=== PATIENT | female | born 1950 | race African-American/Black ===

== ENCOUNTER 2017-08-31 20:27 | Inpatient (IN) | payer SELFPAY ==
[2017-08-31 22:11] LABS: Troponin I 0.095 ng/mL (< 0.028)
[2017-08-31] MEDS ORDERED: CEFTRIAXONE 2GM/50 ML BAG 2 GM in Premix Bag 1 BAG IVPB SCH (23:00)
[2017-08-31] MEDS ORDERED: Ondansetron HCl/PF 4 MG/2 ML Vial IVP PRN (23:35)
[2017-08-31] MEDS ORDERED: Acetaminophen 325 MG TAB PO PRN (23:35)
[2017-08-31] MEDS ORDERED: Ondansetron ODT 4 MG TAB SL PRN (23:35)
[2017-08-31] MEDS ORDERED: Azithromycin 500 MG in Sodium Chloride 0.9% 250 ML 250 ML IVPB SCH (23:59)
[2017-09-01] MEDS ORDERED: PROVENTIL INHALER 6.7 G (200 INHALATIONS) INH PRN (01:31)
[2017-09-01] MEDS ORDERED: Bisacodyl 10 MG SUPP PR PRN (01:31)
[2017-09-01] MEDS ORDERED: Acetaminophen 650 MG Suppository PR PRN (01:31)
[2017-09-01] MEDS ORDERED: cefTRIAXone\\ROCEPHIN 2 GM in Sodium Chloride 0.9% 100 ML IVPB SCH (01:31)
[2017-09-01] MEDS ORDERED: Ondansetron HCl/PF 4 MG/2 ML Vial IVP PRN (01:31)
[2017-09-01] MEDS ORDERED: Bisacodyl 5 MG TAB PO PRN (01:31)
[2017-09-01] MEDS ORDERED: Ondansetron ODT 4 MG TAB PO PRN (01:31)
[2017-09-01] MEDS ORDERED: CEFTRIAXONE 2GM/50 ML BAG 2 GM in Premix Bag 1 BAG IVPB SCH (02:00)
[2017-09-01] MEDS ORDERED: Vancomycin HCl 1 GM in Premix Bag 1 BAG IVPB SCH (02:00)
[2017-09-01] MEDS ORDERED: Lorazepam 0.5 MG TAB PO SCH (02:45)
[2017-09-01 02:49] LABS: Anion Gap 12 mmol/L (10-20); BUN (Urea Nitrogen) 13 mg/dL (9.8-20.1); Calc. Creatinine Clearance 40 mL/min (70-130); Carbon Dioxide 30 mmol/L (23-31); Chloride 89 mmol/L (98-107); Estimated GFR-MDRD 65; Potassium 3.9 mmol/L (3.5-5.1); Sodium 127 mmol/L (136-145)
[2017-09-01 02:50] LABS: ALT (SGPT) 8 U/L (8-55); AST (SGOT) 8 U/L (5-34); Albumin 2.7 g/dL (3.4-4.8); Alkaline Phosphatase 60 U/L (40-150); Bilirubin, Total 0.6 mg/dL (0.2-1.2); Calcium 8.4 mg/dL (7.8-10.44); Globulin 3.1 g/dL (2.4-3.5); Glucose 194 mg/dL (80-115); Protein, Total 5.8 g/dL (6.0-8.3)
[2017-09-01] MEDS: Potassium Chloride 20 MEQ in Lactated Ringer's 1,000 ML IV SCH (03:07)
[2017-09-01 03:08] LABS: Band 3 % (5-11); Eosinophils 9 % (0-10); Lymphocytes 17 % (21-51); MDiff Complete? YES; Mean Corpuscular HGB CONC 31.7 g/dL (32.0-36.0); Mean Corpuscular Hemoglobin 29.5 pg (27.0-31.0); Mean Corpuscular Volume 92.9 fl (81.0-99.0); Mean Platelet Volume 8.3 fL (7.4-10.4); Monocytes 4 % (0-10); Neutrophil 67 % (42-75); PLT Morphology Comment Appears Adequate; Platelet Count 264 thou/uL (130-400); RBC Distribution Width 13.8 % (11.5-14.5); RBC Morphology Normal; Red Blood Cell (RBC) Count 4.43 mill/uL (4.20-5.40); White Blood Cell (WBC) Count 11.4 thou/uL (4.8-10.8)
--- NOTE | 2017-09-01 03:21 | HP ---
DATE OF ADMISSION: 08/31/2017 CHIEF COMPLAINT: Coughing up blood. HISTORY OF PRESENT ILLNESS: This is a 66-year-old female with a past medical history that is quite extensive and includes a lung mass or pneumonia in September of last year, peripheral vascular disease, COPD, tobacco abuse, history of TB. She presents with 2 to 3-day history of coughing pink bloody sputum and having worsening shortness of breath. She feels like the coughing and the breathing had just gotten worse and worse, and so she decided to come to the ER. In the ER, she was found to be coughing up some pink frothy sputum and subsequently was admitted to our service. She says that she has been having chronic cough for months to years and that this has just been progressing and she has been seeing doctors, but has not been getting any better. She was seen in September and diagnosed with what was felt to be a pneumonia, and transitioned to oral antibiotics and discharged home, and then never followed up as directed. She says she has not had any night sweats or fevers, but she told my resident she had had some weight loss. She tells me she was treated for TB a long time ago when she was in her teens, 18 or 19. PAST MEDICAL HISTORY: Significant for hyperlipidemia, peripheral vascular disease, tobacco abuse, COPD, hypertension. PAST SURGICAL HISTORY: Includes stents in the legs as well as the kidneys. ALLERGIES: She is allergic to PENICILLIN. MEDICATIONS: Ventolin, Symbicort, lisinopril, Coreg, statin, and clonidine. FAMILY HISTORY: Significant for diabetes mellitus. SOCIAL HISTORY: She smokes more than a pack a day, drinks, but no history of drug abuse. PHYSICAL EXAMINATION: VITAL SIGNS: BP 140/96, pulse 78, respiratory rate of 22, O2 sat 93% on 2 liters oxygen. She was satting 100% on 3 liters oxygen when I was in the room. GENERAL: She seems slightly short of breath, but no distress. HEENT: Eyes without icterus or injection. Pinna normal. Nares patent without discharge. Nasal cannula in place. CARDIOVASCULAR: Regular rate and rhythm without murmur. No peripheral edema. She has had poor distal pulses. No renal bruit. LUNGS: She has diffuse expiratory wheezing and crackles especially in the right lung base inside. ABDOMEN: Bowel sounds positive. Nontender to palpation. No palpable organomegaly for me. GENITOURINARY: Deferred. MUSCULOSKELETAL: Without obvious deformity or contracture with the exception of a prominent clubbing of her nails. SKIN: Without lesion or rash. Warm and dry. She does have the aforementioned clubbing. NEUROLOGIC: Cranial nerves II-XII intact, symmetric. Motor is 5/5 in upper and lower extremities. PSYCH: AOx4, mood and affect appropriate for current medical condition. LABORATORY DATA: Include a white count of 10.4, hemoglobin of 14.4, platelets 255. Chemistry includes a sodium of 124, potassium 3.2, chloride 81, bicarbonate of 33, BUN 14, creatinine 0.95. Normal LFTs. Her CT of the chest read as, 1. no large central pulmonary embolus. 2. Extensive multifocal consolidation bilaterally, but there is cavitation, this progressively increased in size and was previously documented in right lower lobe measuring 6.6 cm compared with previous similar location of 4.2 cm on prior exam. This may relate to progressive area of malignancy versus chronic consolidation given the multifocality of findings and cavitation such as atypical infection versus cavitary malignancy should be further discerned clinically. 3. Clear evidence of pulmonary emphysema. 4. Evidence of thoracic adenopathy, which could be related to reactive or neoplastic etiology. 5. Recommend followup with Pulmonary Medicine consultation. ASSESSMENT AND PLAN: 1. Hemoptysis. Her infiltrate which has been worsening in light of her chronic symptoms and history attributes concerning of course for malignancy, TB , and other nonresolving causes of pneumonia. We will place her in isolation room, request AFB sputum x3, and consult Pulmonology in the morning. 2. Chronic obstructive pulmonary disease. We will go ahead and continue home medications and schedule DuoNeb q.4 hours if she feels like she is a bit short of breath. She may require BiPAP with any worsening overnight. We will monitor her closely and obtain blood gas and escalate care if necessary. 3. Hypertension. I think restarting her home medications will be sufficient for now. 4. Hyponatremia, likely secondary to underlying pulmonary process. I will go ahead and trend with a BMP in the morning. 5. Hypokalemia. We will replete and recheck. 6. Alkalosis. Suspect this is chronic respiratory acidosis at this point. 7. Elevated BNP with what looks like a fairly large LV on CT scan. We will go ahead and obtain TTE. 8. Nux-LB-[id number] myocardial infarction with troponins that are stable at 0.093 and 0.095. I will repeat an EKG, which I was unable to find while I was in the ER, and consider consultation in the morning. 9. Tobacco abuse. We will certified drug counselor cessation. 10. Hyperlipidemia. We will continue statin that she is on home. 11. Peripheral vascular disease. We will hold the aspirin in light of her current hemoptysis. 12. Gastrointestinal prophylaxis with diet. DVT prophylaxis with Lovenox. MTDD
--- NOTE | 2017-09-01 06:02 | HP-2 ---
DATE OF ADMISSION: 08/31/2017 CODE STATUS: FULL. PRIMARY CARE PHYSICIAN: Dr. Kirkpatrick. ATTENDING PHYSICIAN: Dr. Meek. RESIDENT: Martín Vora M.D., PGY1 CHIEF COMPLAINT: Pneumonia. HISTORY OF PRESENT ILLNESS: It should be noted that the patient is not a very good historian. This is a 66-year-old -British female that comes in with chief complaint of cough. This cough has been going on now for the last 11 months has been having shortness of breath for over the last year or two. She has been taking over the counter medications. She said she has recently switched [facility] doctors because she was trying to get antibiotics or different medicines for this cough. The cough is recurrent. She is coughing up pink colored sputum. She reports that sometimes she gets bur radha pain in her chest. She says she is on multiple different inhalers that helped with the cough so me but is still present. She denies any fever, chills. Denies any night sweats. Denies any recent weight loss, she has lost from 120 pounds to 105 pounds over the past 5 years. From reviewing past m edical history and past visits, she was recently hospitalized in the ER back in 10/06/2016, was found to have some sort of lung mass and told that she needed to be worked up for cancer and she told him that she did not have time to get this worked up. Since then she has just been tired of dealing with this. She finally came into the ER today because the shortness of breath was too much and cough was getting too much for her. It should be noted after talking with her, she did report having been ibis ated for TB infection back when she was a child. PAST MEDICAL HISTORY: Hyperlipidemia, peripheral vascular disease with claudication, hypertension, t obacco abuse, COPD, and Diabetes mellitus. PAST SURGICAL HISTORY: She has gotten stents put in her leg, stents in her kidneys for poor perfusio n to her kidneys. ALLERGIES: Include PENICILLIN. MEDICATIONS: She is on hydralazine 25 mg half a tablet by mouth twice daily, lovastatin 20 mg 1 tab daily, carvedilol 25 mg by mouth twice daily, Ventolin HFA 1-2 puffs twice a day as needed, Lisinopri l/hydrochlorothiazide 20/12.5 mg oral tablet 2 p.o. daily, Symbicort 162/4.5mg/ACT inhalation aerosol 1-2 puffs as needed. SOCIAL HISTORY: She has been 1 pack per day smoker ever since she was 17, through for 50 plus years. She has recently cut back some but sometimes goes two to three days without smoking. Alcohol use i s occasional. No illicit drug use. REVIEW OF SYSTEMS: All review of systems not listed in the HPI, otherwise negative at this time. PHYSICAL EXAMINATION: VITAL SIGNS: Blood pressure is 145/80, pulse 75, respirations 16, temperature is 98.3, pulse ox 94% on 3 liters. Current weight 47 kilograms. GENERAL: She is alert and oriented x3, well-developed. She is thin, appropriately interactive. EYES: Conjunctivae within normal limit. ENT: Nasal mucosa within normal limits. Oropharynx within normal limit. NECK: Supple, no lymphadenopathy, no thyromegaly, no bruits. CARDIOVASCULAR: Regular rate and rhythm. No murmurs, no gallops. Radial pulses, pedal pulses palpa stuart bilaterally. RESPIRATORY: She has decreased lung sounds, decreased breaths. No retractions, rales on inspiration , has expiratory wheezes, maybe some mild crackles as well. SKIN: Warm and dry. No lesions noted. ABDOMEN: Soft, nontender to palpation. Bowel sounds heard in all 4 quadrants. No masses. Maybe mi ldly distended. EXTREMITIES: No edema, no pitting. MUSCULOSKELETAL: She has definitely decreased muscle mass. Very thin legs, tone decreased. She has palm range of motion of her extremities. NEUROLOGIC: No focal neuro deficit. PSYCHIATRIC: Appropriate. LABORATORY DATA: Hemoglobin is 10.4, hemoglobin is 14.4, hematocrit is 47, MCV is 88.9, platelets ar e 255. Sodium is 124, potassium is 3.2, chloride is 81, bicarbonate is 33, BUN is 14, creatinine 0.9 5, glucose is 86. CK-MB is 0.8. Troponin is 0.093, calcium is 9.1, total protein is 6.5, albumin is 2.9, total bilirubin is 0.6, AST is 10, ALT is 7, and alkaline phosphatase is 62. BNP is 659.6. IMAGING: A chest x-ray done on 08/31/2017 shows: 1. Interval increase in interstitial opacities bilaterally as well as rounded mass-like area at the right lung base similar findings were seen on the prior study and findings could be related to recurr ent pneumonia, although mass cannot be excluded. There are also parenchymal changes in the right mid lung zone, worrisome for pneumonia. 2. Small bilateral pleural effusions are present. 3. Follow up to complete resolution is recommended to exclude neoplastic process. On 08/31/2017 [facility] chest thorax CTA, which showed: I. No large central pulmonary embolus. II. Extensive multifocal consolidation bilaterally with areas of cavitation. There has been progres sive size increase of previously documented right lower lobe consolidation measuring 6.6 cm compared to a similar location of 4.2 cm on prior exam. This may relate to progressive area of malignancy savage sada chronic consolidation given multifocality of finding the cavitation and it is such as atypical in fection versus cavitary malignancy should be further discern clinically. III. Extensive pulmonary emphysema. IV. There is evidence of thoracic adenopathy which could relate to reactive or neoplastic etiology. V. Recommended follow up with Pulmonary Medicine consultation. ASSESSMENT AND PLAN: This is a 66-year-old -British female who comes in with a year history of recurrent cough and shortness of breath. 1. Recurrent pneumonia with evidence of cavitary lesions on CT. We will likely need to consult pulm onology workup to discern through if these are lesions due to chronic infection or due to cancer. We will check strep pneumo antigen, check legionella antigen. We will check procalcitonin and she did report a history of tuberculosis infection when she was a child with cavitary lesions. We will get a n acid fast bacilli gram staining cultures. We will get sputum cultures. We will get blood cultures and we will keep her on oxygen and monitor O2 sats and treat as needed. We will also give her ceftr iaxone and azithromycin for atypical antibiotics currently. We will adjust antibiotic regimen as cul tures come back. 2. Indeterminate troponin. Troponin was elevated 0.093 could be due to decreased oxygen into the kee ngs and we will continue to trend troponins. She did not complain of any chest pain, nothing on EKG. We will put her on tele monitoring while she is here. 3. Hyponatremia. We will get serum and urine osmolality. We will get urine sodium and was started on lactated Ringer's with KCl. She also had some hypokalemia at a rate of 50 and continue to monitor with daily BMPs. Our concern is some kind of sodium loss maybe due to syndrome of inappropriate ant idiuretic hormone secretion likely due to possible cancer in her lungs. 4. Chronic obstructive pulmonary disease. We will continue her home meds. We will give her DuoNebs as needed. We will keep O2 sats above 90. 5. Hypertension. We will continue her home meds at this time. Adjust medications as needed. 6. Hypokalemia. We will replace with the lactated Ringer's. We will check BMP in the morning and a djust as needed. 7. Elevated BNP. BNP was 659.6, heart looks a little bit enlarged on the CT. So we will get a hear t echo at this time and keep fluids at low rate at this time for possible fluid overload. 8. Diabetes mellitus. She is not taking any medications at this time. We will monitor her sugars o n the BMP. 9. Deep venous thrombosis prophylaxis. We will do Lovenox for prophylaxis.
--- NOTE | 2017-09-01 06:26 | PDOC.FM ---
- Subjective Subjective: Patient is a pleasant 66 yo female. She is unaware of any chronic lung disease. She does note that she had TB as a child more specifically "I was born with it and I'm allergic to the shot." She notes that her cough is what brought her to the hospital this time around. She states she was never told that she may have lung cancer. She said that she had smoked all of her life, but decided to quit about a year ago. She denies any chest pain, n/v/d, fever, or chills. She has no other complaints at this time. - Objective Vital Signs & Weight: Vital Signs (12 hours) Temp Pulse Resp BP Pulse Ox 09/01/17 03:35 98 F 73 19 121/59 L 93 L 08/31/17 23:45 97.9 F 77 20 138/64 97 08/31/17 23:15 97.9 F 77 22 H 138/64 97 Weight Weight 47.491 kg I&O: 08/30/17 08/31/17 09/01/17 06:59 06:59 06:59 Intake Total 633.7 Output Total 200 Balance 433.7 Result Diagrams: 09/01/17 01:58 09/01/17 01:58 <Paul Carrasco - Last Filed: 09/01/17 08:19> - Objective Vital Signs & Weight: Vital Signs (12 hours) Temp Pulse Resp BP BP Pulse Ox 09/01/17 08:00 98.4 F 86 18 97 09/01/17 07:50 98.4 F 86 18 194/93 H 97 09/01/17 07:24 70 16 09/01/17 03:35 98 F 73 19 121/59 L 93 L 08/31/17 23:45 97.9 F 77 20 138/64 97 08/31/17 23:15 97.9 F 77 22 H 138/64 97 Weight Admit Weight 46.901 kg Weight 47.491 kg I&O: 08/31/17 09/01/17 09/02/17 06:59 06:59 06:59 Intake Total 633.7 Output Total 200 Balance 433.7 Result Diagrams: 09/01/17 01:58 09/01/17 01:58 <Afsaneh Alvarenga - Last Filed: 09/01/17 11:10> Phys Exam - Physical Examination Constitutional: NAD HEENT: moist MMs Neck: no nodes Expiratory wheezing present, Inspiratory rales, Crackles throughout Cardiovascular: RRR, no significant murmur Gastrointestinal: soft, non-tender, no distention, positive bowel sounds Musculoskeletal: no edema Neurological: non-focal, normal sensation, moves all 4 limbs Lymphatic: no nodes Psychiatric: normal affect Skin: no rash <Paul Carrasco - Last Filed: 09/01/17 08:19> Dx/Plan (1) PNA (pneumonia) Code(s): J18.9 - PNEUMONIA, UNSPECIFIED ORGANISM Status: Acute (2) COPD (chronic obstructive pulmonary disease) Status: Acute (3) Hyponatremia Code(s): E87.1 - HYPO-OSMOLALITY AND HYPONATREMIA Status: Acute (4) Elevated brain natriuretic peptide (BNP) level Code(s): R79.89 - OTHER SPECIFIED ABNORMAL FINDINGS OF BLOOD CHEMISTRY Status : Acute (5) DM2 (diabetes mellitus, type 2) Status: Chronic QualifierTitle: Diabetes mellitus complication status: with hyperglycemia Diabetes mellitus lobsterman insulin use: unspecified halfway insulin use status Qualified Code(s): E11.65 - Type 2 diabetes mellitus with hyperglycemia (6) HTN (hypertension) Code(s): I10 - ESSENTIAL (PRIMARY) HYPERTENSION Status: Chronic QualifierTitle: Hypertension type: essential hypertension Qualified Code( s): I10 - Essential (primary) hypertension (7) HLD (hyperlipidemia) Code(s): E78.5 - HYPERLIPIDEMIA, UNSPECIFIED Status: Acute (8) Peripheral vascular disease Code(s): I73.9 - PERIPHERAL VASCULAR DISEASE, UNSPECIFIED Status: Acute - Plan Plan: 1. Recurrent Pneumonia with Cavitary lesions - Will get Pulmonology consultation, Appreciate Dr. French's recs - Per Patient past hx of TB, put in isolation protocol - Continue antibiotics - Procalcitonin not positive - Cultures pending - Legionella and Strep antigens pending 2. COPD - Continue home meds - Duonebs - Supplemental Oxygen as needed 3. Hyponatremia - Could be due to pulmonary process - Will monitor with BMP - Not currently symptomatic 4. Elevated BNP - ECHO pending 5. DM2 - Not currently medicated - Will check HgbA1C - Will consider accuchecks and SSI 6. HTN - Lisinopril/HCTZ - Monitor BP 7. HLD - Continue statin 8. PVD - s/p stent placement in legs and renal arteries Disposition: Stable, Will await pulmonary recommendations and further lab studies. <Paul Carrasco - Last Filed: 09/01/17 08:19> Attending Addendum - Attending Addendum I personally evaluated the patient and discussed the management with Dr. Carrasco I agree with the History, Examination, Assessment and Plan documented above with any addition or exceptions noted below- Patietn c/o SOB; states that it feels like she can't catch her breath. Does states that cough is improved. Afebrile VSS. A/P: 1) Multifocal pneumonia- continue antibiotics, O2 and nebs, 2 ) COPD- consider addition of steroids; continue nebs/O2. 3) Abnormal CT scan with cavitary lesion- infectious vs neoplasm- CT scan from 2013 with right lower lobe pleural based lesion now increased in size; await input from pulmonary. 4) DM- will check accuchecks and treat accordingly. 5) HTN- continue home meds and adjust as needed. <Afsaneh Alvarenga - Last Filed: 09/01/17 11:10>
[2017-09-01] MEDS: Mometasone/Formoterol 120 PUFF INHALER INH SCH ×2 (07:24→19:50)
[2017-09-01] MEDS ORDERED: Non-Formulary Item 1 EACH (Budesonide-Formoterol [Symbicort 160-4.5] 1 PUFF) INH SCH (09:00)
[2017-09-01] MEDS: hydrALAZINE 25 MG TAB PO SCH ×2 (09:27→21:17)
[2017-09-01] MEDS: Lisinopril/Hydrochlorothiazide 20 mg/12.5 mg Tablet PO SCH (09:27)
[2017-09-01] MEDS: Enoxaparin Sodium 30 MG/0.3 ML SYRINGE SC SCH (09:27)
[2017-09-01] MEDS: Carvedilol 25 MG TAB PO SCH ×2 (09:27→17:17)
[2017-09-01] MEDS ORDERED: Dextrose 5% in Water 1,000 ML IV PRN (11:19)
[2017-09-01] MEDS ORDERED: Dextrose 50% Abboject 50 ML SYRINGE SLOW IVP PRN (11:19)
[2017-09-01 11:46] LABS: Hemoglobin A1c 5.5 % (4.0-6.0)
--- NOTE | 2017-09-01 14:31 | CON ---
DATE OF CONSULTATION: 09/01/2017 CONSULTING PHYSICIAN: [facility]. REASON FOR CONSULTATION: Lung masses. HISTORY OF PRESENT ILLNESS: This is a 66-year-old female who is a poor historian. She is able to gi ve me some history. I have also reconstructed history based on what is written in the chart and from old documentation. She did see Dr. Hebert in the hospital in September. She came in yesterday dexter e she had difficulty with her breathing. She has lost some weight. She told me she is having a dry cough, but later she was coughing up some pink colored sputum. She has an enlarging fairly significa nt right-sided lung mass that was about 4.5 cm in September, it is now about 6 cm. She also has scatt ered bilateral cavitary changes. She tells me she had tuberculosis when she was about 17 years old. She was treated over [facility]. [facility], but does no t know for what duration she took medication. PAST MEDICAL HISTORY: 1. Presumed TB as a teenager. 2. Hyperlipidemia. 3. Chronic obstructive pulmonary disease. 4. Tobacco abuse. 5. Diabetes mellitus type 2. 6. Peripheral vascular disease. PAST SURGICAL HISTORY: She has had iliac stents placed. She has also had renal artery stents placed . ALLERGIES: PENICILLIN. MEDICATIONS PRIOR TO ADMISSION: Hydralazine, lovastatin, carvedilol, Ventolin, lisinopril/hydrochlor othiazide, Symbicort. SOCIAL HISTORY: One pack of cigarettes per day since age 17 and has not quit but has tried to cut ba ck some, occasionally drinks alcohol. Does not use any illicit drugs. REVIEW OF SYSTEMS: Remarkable for weight loss, cough, congestion. A 12-point review of systems other conn negative. PHYSICAL EXAMINATION: VITAL SIGNS: Temperature 98.4, pulse 80, respirations 18, O2 sat 96% on 3 liters, blood pressure 146 /69. GENERAL: She is cachectic-appearing female. She is dyspneic when speaking. HEENT: Sclerae are anicteric. Pupils reactive. Oropharynx dry. NECK: No JVD. LUNGS: Coarse breath sounds bilaterally with bilateral expiratory wheezing. CARDIOVASCULAR: S1, S2, slightly tachycardic. No murmur. ABDOMEN: Soft and nontender. No hepatosplenomegaly. EXTREMITIES: Severe muscle wasting without cyanosis or edema. SKIN: Shows no rashes, bruising or jaundice. She is able to move all 4 extremities without limitati on. LABORATORY DATA: White blood cell count 11.4, hematocrit 41, platelet count 264. Sodium 127, potass ium 3.9, chloride 89, CO2 30, BUN 13, creatinine 1.0, glucose 194. I reviewed her CT scan in detail. She has bilateral cavitary slight interstitial changes. She has a large right lower lobe lung mass , which is lateral. She also has a cavitary lesion in the bottom of the left lung. She has scattere d mediastinal lymphadenopathy. ASSESSMENT: 1. Chronic obstructive pulmonary disease exacerbation. 2. Chronic respiratory failure. 3. Tobacco abuse. 4. History of tuberculosis. 5. Enlarging right lung mass and cavitary left lung mass. RECOMMENDATIONS: 1. I would first treat her COPD exacerbation with antibiotics, breathing treatments, and steroids. 2. Concurrently get sputum, although I doubt, we are dealing with active TB. 3. Eventually, she will need a CT guided biopsy of the right-sided lung mass. I will discuss this w ith Dr. Hebert, who had seen her before.
[2017-09-01] MEDS: HumaLOG 300 UNITS/3 ML VIAL SC PRN (17:16)
[2017-09-01] MEDS: Lovastatin 20 MG TAB PO SCH (17:17)
[2017-09-01 18:05] LABS: Sodium, Urine 96 mmol/L (Not Available)
[2017-09-01] MEDS: Azithromycin 500 MG in Sodium Chloride 0.9% 250 ML 250 ML IVPB SCH (18:08)
[2017-09-01] MEDS: Guaifenesin DM 100-10/5 ML UDCUP PO PRN ×2 (18:09→22:30)
[2017-09-01 18:11] LABS: Osmolality, Urine 384 mOsm/kg (300-900)
[2017-09-01 18:30] LABS: Legionella Urinary Ag Negative (Negative); Strep pneumo Urine Ag NEGATIVE (NEGATIVE)
[2017-09-01] MEDS: Melatonin 3 MG TAB PO PRN (22:22)
[2017-09-02] MEDS: CEFTRIAXONE 2GM/50 ML BAG 2 GM in Premix Bag 1 BAG IVPB SCH (00:46)
[2017-09-02] MEDS: Potassium Chloride 20 MEQ in Lactated Ringer's 1,000 ML IV SCH (01:05)
[2017-09-02] MEDS ORDERED: hydrALAZINE 20 MG/ML VIAL SLOW IVP PRN (04:40)
[2017-09-02 05:33] LABS: Band 18 % (5-11); Hemoglobin 12.4 g/dL (12.0-16.0); Lymphocytes 7 % (21-51); MDiff Complete? YES; Mean Corpuscular HGB CONC 30.8 g/dL (32.0-36.0); Mean Corpuscular Hemoglobin 28.9 pg (27.0-31.0); Mean Platelet Volume 8.1 fL (7.4-10.4); Metamyelocyte 1 % (0-0); Neutrophil 74 % (42-75); PLT Morphology Comment Appears Adequate; Platelet Count 262 thou/uL (130-400); RBC Distribution Width 13.9 % (11.5-14.5); Red Blood Cell (RBC) Count 4.29 mill/uL (4.20-5.40); White Blood Cell (WBC) Count 16.7 thou/uL (4.8-10.8)
[2017-09-02 05:36] LABS: Anion Gap 12 mmol/L (10-20); BUN (Urea Nitrogen) 12 mg/dL (9.8-20.1); Calc. Creatinine Clearance 53 mL/min (70-130); Calcium 8.6 mg/dL (7.8-10.44); Carbon Dioxide 29 mmol/L (23-31); Chloride 88 mmol/L (98-107); Estimated GFR-MDRD 86; Glucose 131 mg/dL (80-115); Potassium 4.2 mmol/L (3.5-5.1); Sodium 125 mmol/L (136-145)
--- NOTE | 2017-09-02 06:08 | PDOC.FM ---
- Subjective Subjective: Patient states she has not gotten good rest. She states every time she is able to get to sleep someone comes in to wake her up. She states that she still "can' t get a breath deep enough to bring up anything." She states the nebulizer treatments and oxygen is helping. She also notes that she has not had any n/v/ d. She denies fever or chills. She does admit to a cough and productive sputum. She also notes some blood in her sputum this am. She denies chest pain or sob at this time as well. No other complaints offered. - Objective Vital Signs & Weight: Vital Signs (12 hours) Temp Pulse Resp BP BP Pulse Ox 09/02/17 04:52 84 191/80 H 09/02/17 00:22 87 18 93 L 09/01/17 21:17 89 136/68 09/01/17 20:00 98.7 F 80 20 136/68 93 L 09/01/17 19:50 89 18 94 L 09/01/17 19:20 98.7 F 80 20 93 L Weight Admit Weight 46.901 kg Weight 47.491 kg I&O: 08/31/17 09/01/17 09/02/17 06:59 06:59 06:59 Intake Total 633.7 1793 Output Total 200 200 Balance 433.7 1593 Result Diagrams: 09/02/17 04:07 09/02/17 04:07 <Paul Carrasco - Last Filed: 09/02/17 08:34> - Objective Vital Signs & Weight: Vital Signs (12 hours) Temp Pulse Resp BP BP Pulse Ox 09/02/17 08:35 98 F 89 18 96 09/02/17 08:33 98 F 89 18 187/88 H 97 09/02/17 08:28 94 16 09/02/17 08:20 94 16 09/02/17 06:05 141/66 H 09/02/17 04:52 84 191/80 H 09/02/17 00:22 87 18 93 L Weight Admit Weight 46.901 kg Weight 47.491 kg I&O: 09/01/17 09/02/17 09/03/17 06:59 06:59 06:59 Intake Total 633.7 1793 Output Total 200 200 Balance 433.7 1593 Result Diagrams: 09/02/17 04:07 09/02/17 04:07 <TenishaAfsaneh colon - Last Filed: 09/02/17 11:10> Phys Exam - Physical Examination Constitutional: NAD HEENT: moist MMs Neck: no nodes, supple Respiratory: wheezing present rales present Cardiovascular: RRR, no significant murmur Gastrointestinal: soft, non-tender, no distention, positive bowel sounds Musculoskeletal: no edema Neurological: non-focal, normal sensation, moves all 4 limbs Lymphatic: no nodes Psychiatric: normal affect, A&O x 3 Skin: no rash <Paul Carrasco - Last Filed: 09/02/17 08:34> Dx/Plan (1) PNA (pneumonia) Code(s): J18.9 - PNEUMONIA, UNSPECIFIED ORGANISM Status: Acute (2) COPD (chronic obstructive pulmonary disease) Status: Acute (3) Hyponatremia Code(s): E87.1 - HYPO-OSMOLALITY AND HYPONATREMIA Status: Acute (4) Elevated brain natriuretic peptide (BNP) level Code(s): R79.89 - OTHER SPECIFIED ABNORMAL FINDINGS OF BLOOD CHEMISTRY Status : Acute (5) DM2 (diabetes mellitus, type 2) Status: Chronic QualifierTitle: Diabetes mellitus complication status: with hyperglycemia Diabetes mellitus residential insulin use: unspecified terminal worker insulin use status Qualified Code(s): E11.65 - Type 2 diabetes mellitus with hyperglycemia (6) HTN (hypertension) Code(s): I10 - ESSENTIAL (PRIMARY) HYPERTENSION Status: Chronic QualifierTitle: Hypertension type: essential hypertension Qualified Code( s): I10 - Essential (primary) hypertension (7) HLD (hyperlipidemia) Code(s): E78.5 - HYPERLIPIDEMIA, UNSPECIFIED Status: Acute (8) Peripheral vascular disease Code(s): I73.9 - PERIPHERAL VASCULAR DISEASE, UNSPECIFIED Status: Acute (9) Lung mass Code(s): R91.8 - OTHER NONSPECIFIC ABNORMAL FINDING OF LUNG FIELD Status: Acute (10) Cavitating mass of lung Code(s): J98.4 - OTHER DISORDERS OF LUNG Status: Acute (11) History of tuberculosis Code(s): Z86.11 - PERSONAL HISTORY OF TUBERCULOSIS Status: Acute - Plan Plan: 1. Recurrent Pneumonia with Cavitary lesions - Will get Pulmonology consultation, Appreciate Dr. French's recs - Per Patient past hx of TB, put in isolation protocol - Continue antibiotics - Procalcitonin not positive - Cultures pending - Legionella and Strep antigens pending 2. COPD - Continue home meds - Duonebs - Supplemental Oxygen as needed - Will add steroids 3. Lung mass - Pulmonary will coordinate for CT guided biopsy 4. Hx of TB -Pulmonology doesn't believe active TB -Will continue isolation precautions -Awaiting sputum culture results 5. Elevated BNP - ECHO pending 6. DM2 - Not currently medicated - HgbA1C 5.5 - Accuchecks and SSI 7. HTN - Lisinopril/HCTZ - Monitor BP - Hydralazine as needed 8. HLD - Continue statin 9. PVD - s/p stent placement in legs and renal arteries 10. Hyponatremia - Could be due to pulmonary process - Will monitor with BMP - Not currently symptomatic Disposition: Stable, Will await pulmonary recommendations and further lab studies. <Paul Carrasco - Last Filed: 09/02/17 08:34> Attending Addendum - Attending Addendum I personally evaluated the patient and discussed the management with Dr. Carrasco I agree with the History, Examination, Assessment and Plan documented above with any addition or exceptions noted below- Patient tired; has not gotten rest ; does state breathing is better. Afebrile VSS A/P: 1) Pneumonia- continue current abx; appreciate pulmonary assistance; continue steroids. 2) Cavitary lung lesions- AFB smear negative; await further recommendations from pulmonary. 3) Hyponatremia- continue to monitor; possibly secondary to lung proscess vs. diurectics. 4) Hyperglycemia- normal HgbA1c; continue to monitor and start sliding scale insulin. <Afsaneh Alvarenga - Last Filed: 09/02/17 11:10>
[2017-09-02] MEDS ORDERED: predniSONE 20 MG TAB PO SCH (08:00)
[2017-09-02] MEDS: Mometasone/Formoterol 120 PUFF INHALER INH SCH ×2 (08:28→18:42)
[2017-09-02] MEDS: Carvedilol 25 MG TAB PO SCH ×2 (08:37→16:00)
[2017-09-02] MEDS: hydrALAZINE 25 MG TAB PO SCH ×2 (08:37→21:09)
[2017-09-02] MEDS: Lisinopril/Hydrochlorothiazide 20 mg/12.5 mg Tablet PO SCH (08:37)
[2017-09-02] MEDS: Enoxaparin Sodium 30 MG/0.3 ML SYRINGE SC SCH (08:37)
[2017-09-02] MEDS: HumaLOG 300 UNITS/3 ML VIAL SC PRN (12:13)
--- NOTE | 2017-09-02 13:14 | PRG ---
DATE OF SERVICE: 09/02/2017 SUBJECTIVE: Ms. Wilson has no new complaints today. PHYSICAL EXAMINATION: VITAL SIGNS: She is afebrile, heart rate 83, respiratory rate is 18, oximetry is 96 on 3 liters, blo od pressure was 187/88, earlier 172/84. LUNGS: Lungs are remarkable for mild rhonchi on the right. HEART: Regular rhythm. ABDOMEN: Soft. LABORATORY DATA: White count 16.7, hemoglobin 12.4, platelets 262. She has 18% band on a peripheral smear. Sodium 125, potassium 4.2, chloride 88, bicarbonate 29, BUN 12, creatinine 0.8, glucose 131. Microbiology; acid fast smears are negative. IMPRESSION: 1. Right upper lobe pneumonia, likely bacterial. 2. 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 3. Right lung mass abutting the pleura. This a large mass that has increased in size since last yea r. I suspect this is malignant. I doubt this is an infectious process since it is very dense with v fabiano few air bronchograms. This could easily be accessed by CT guided biopsy. This should be set up, but not done until first part of next week in my opinion. I suspect this is at least a stage III ma lignancy given that there is adenopathy also. 4. Deconditioning. PLAN: Continue antimicrobial therapy. Her TB isolation can be discontinued. She has a negative AFB smear and it is unlikely this is a malignant since she has not been compliant with followup and admi ts she realized that she should have been to see me sooner. I would recommend that we workup all of her problems while she is here.
[2017-09-02] MEDS: Lovastatin 20 MG TAB PO SCH (17:45)
[2017-09-02] MEDS: Azithromycin 500 MG in Sodium Chloride 0.9% 250 ML 250 ML IVPB SCH (17:45)
[2017-09-02] MEDS: Melatonin 3 MG TAB PO PRN (21:46)
[2017-09-03] MEDS: CEFTRIAXONE 2GM/50 ML BAG 2 GM in Premix Bag 1 BAG IVPB SCH (00:30)
--- NOTE | 2017-09-03 06:14 | PDOC.FM ---
- Subjective Subjective: Patient still complains "I can't take a deep enough breath to get anything out. " She states that her breathing is basically unchanged. She states she only gets out of bed to use the commode. She also states that she doesn't believe the steroids and nebs are helping. She states she feels weak and that she just wants her breathing to be back to normal so that she can go home. She denies chest pain, n/v/d, lightheadedness, or dizziness. She denies tremors or memory trouble. No other complaints offered. - Objective Vital Signs & Weight: Vital Signs (12 hours) Temp Pulse Resp BP Pulse Ox 09/03/17 02:02 87 16 94 L 09/02/17 23:18 90 16 95 09/02/17 21:09 84 09/02/17 19:15 98.3 F 84 18 159/74 H 98 09/02/17 18:42 92 18 94 L 09/02/17 18:40 89 16 94 L Weight Admit Weight 46.901 kg Weight 47.491 kg I&O: 09/01/17 09/02/17 09/03/17 06:59 06:59 06:59 Intake Total 633.7 1793 Output Total 200 200 750 Balance 433.7 1593 -750 Result Diagrams: 09/03/17 06:20 09/03/17 06:20 <Paul Cararsco - Last Filed: 09/03/17 08:35> - Objective Vital Signs & Weight: Vital Signs (12 hours) Temp Pulse Resp BP BP Pulse Ox 09/03/17 09:12 98.3 F 89 20 94 L 09/03/17 09:11 193/95 H 09/03/17 08:56 89 20 94 L 09/03/17 08:37 94 L 09/03/17 08:36 89 20 94 L 09/03/17 07:35 98.3 F 91 18 200/95 H 93 L 09/03/17 04:00 98.5 F 102 H 18 176/71 H 92 L 09/03/17 02:02 87 16 94 L Weight Admit Weight 46.901 kg Weight 47.491 kg I&O: 09/02/17 09/03/17 09/04/17 06:59 06:59 06:59 Intake Total 1793 480 Output Total 200 1150 Balance 1593 -670 Result Diagrams: 09/03/17 06:20 09/03/17 06:20 <Afsaneh Alvarenga - Last Filed: 09/03/17 11:46> Phys Exam - Physical Examination HEENT: moist MMs Neck: no nodes Respiratory: wheezing present improved from yesterday Cardiovascular: RRR Gastrointestinal: soft, non-tender, no distention, positive bowel sounds Musculoskeletal: no edema Neurological: non-focal, normal sensation, moves all 4 limbs Lymphatic: no nodes Psychiatric: normal affect, A&O x 3 Skin: no rash <Paul Carrasco - Last Filed: 09/03/17 08:35> Dx/Plan (1) PNA (pneumonia) Code(s): J18.9 - PNEUMONIA, UNSPECIFIED ORGANISM Status: Acute (2) COPD (chronic obstructive pulmonary disease) Status: Acute (3) Hyponatremia Code(s): E87.1 - HYPO-OSMOLALITY AND HYPONATREMIA Status: Acute (4) Elevated brain natriuretic peptide (BNP) level Code(s): R79.89 - OTHER SPECIFIED ABNORMAL FINDINGS OF BLOOD CHEMISTRY Status : Acute (5) DM2 (diabetes mellitus, type 2) Status: Chronic QualifierTitle: Diabetes mellitus complication status: with hyperglycemia Diabetes mellitus ferry terminal agent insulin use: unspecified ferry terminal agent insulin use status Qualified Code(s): E11.65 - Type 2 diabetes mellitus with hyperglycemia (6) HTN (hypertension) Code(s): I10 - ESSENTIAL (PRIMARY) HYPERTENSION Status: Chronic QualifierTitle: Hypertension type: essential hypertension Qualified Code( s): I10 - Essential (primary) hypertension (7) HLD (hyperlipidemia) Code(s): E78.5 - HYPERLIPIDEMIA, UNSPECIFIED Status: Acute (8) Peripheral vascular disease Code(s): I73.9 - PERIPHERAL VASCULAR DISEASE, UNSPECIFIED Status: Acute (9) Lung mass Code(s): R91.8 - OTHER NONSPECIFIC ABNORMAL FINDING OF LUNG FIELD Status: Acute (10) Cavitating mass of lung Code(s): J98.4 - OTHER DISORDERS OF LUNG Status: Acute (11) History of tuberculosis Code(s): Z86.11 - PERSONAL HISTORY OF TUBERCULOSIS Status: Acute - Plan Plan: Plan: 1. Recurrent Pneumonia with Cavitary lesions - Will get Pulmonology consultation, Appreciate Dr. French's and Dr. Hebert's recs - Per Patient past hx of TB, per Pulmonary isolation can be discontinued. - Continue antibiotics - Procalcitonin not positive - Cultures pending - Legionella and Strep antigens neagative 2. COPD - Continue home meds - Duonebs - Supplemental Oxygen as needed - Will add steroids 3. Lung mass - Pulmonary will coordinate for CT guided biopsy for next week 4. Hx of TB -Pulmonology doesn't believe active TB -Discontinue isolation precautions -AFB negative 5. Elevated BNP - ECHO showed EF 60-65% - Diastolic dysfunction, Mild Mitral regurgitation, and severe tricuspid regurgitation - Patient currently asymptomatic will monitor 6. DM2 - Not currently medicated - HgbA1C 5.5 - Accuchecks and SSI 7. HTN - Lisinopril/HCTZ - Monitor BP - Hydralazine as needed 8. HLD - Continue statin 9. PVD - s/p stent placement in legs and renal arteries 10. 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 <Paul Carrasco - Last Filed: 09/03/17 08:35> Attending Addendum - Attending Addendum I personally evaluated the patient and discussed the management with Dr. Carrasco I agree with the History, Examination, Assessment and Plan documented above with any addition or exceptions noted below- Patient reporting that she still feels like she can't take a deep breath. Afebrile VSS. A/P: 1) CAP- continue IV abx; changed to po steroids; continue nebs. Appreciate pulmonary input. 2) COPD - continue current meds. 3) Lung mass- plan for CT guided biopsy on Thursday. 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 <Afsaneh Alvarenga - Last Filed: 09/03/17 11:46>
[2017-09-03 06:33] LABS: #Basophils 0.1 thou/uL (0.0-0.2); #Lymphocytes 1.4 thou/uL (1.20-3.40); #Monocytes 0.3 thou/uL (0.11-0.59); #Neutrophils 18.1 thou/uL (1.40-6.50); %Basophils 0.3 % (0.0-1.0); %Eosinophils 0.1 % (0.0-10.0); %Lymphocytes 7.1 % (21.0-51.0); %Monocytes 1.7 % (0.0-10.0); %Neutrophils 90.8 % (42.0-75.0); Hemoglobin 13.4 g/dL (12.0-16.0); Mean Corpuscular HGB CONC 30.2 g/dL (32.0-36.0); Mean Corpuscular Hemoglobin 28.4 pg (27.0-31.0); Mean Corpuscular Volume 94.1 fl (81.0-99.0); Platelet Count 288 thou/uL (130-400); RBC Distribution Width 13.8 % (11.5-14.5); White Blood Cell (WBC) Count 19.9 thou/uL (4.8-10.8)
[2017-09-03 06:51] LABS: Anion Gap 12 mmol/L (10-20); BUN (Urea Nitrogen) 12 mg/dL (9.8-20.1); Calc. Creatinine Clearance 51 mL/min (70-130); Calcium 9.5 mg/dL (7.8-10.44); Carbon Dioxide 29 mmol/L (23-31); Chloride 86 mmol/L (98-107); Estimated GFR-MDRD 84; Glucose 122 mg/dL (80-115); Potassium 4.4 mmol/L (3.5-5.1); Sodium 123 mmol/L (136-145)
[2017-09-03] MEDS: Mometasone/Formoterol 120 PUFF INHALER INH SCH ×2 (08:56→18:55)
[2017-09-03] MEDS ORDERED: Amlodipine 5 MG TAB PO SCH (09:00)
[2017-09-03] MEDS: hydrALAZINE 25 MG TAB PO SCH ×3 (09:14→20:48)
[2017-09-03] MEDS: Lisinopril/Hydrochlorothiazide 20 mg/12.5 mg Tablet PO SCH (09:14)
[2017-09-03] MEDS: Carvedilol 25 MG TAB PO SCH ×2 (09:14→18:09)
[2017-09-03] MEDS: Enoxaparin Sodium 30 MG/0.3 ML SYRINGE SC SCH (09:17)
--- NOTE | 2017-09-03 10:28 | PRG ---
DATE OF SERVICE: 09/03/2017 SUBJECTIVE: Steve remains stable from vital signs standpoint. OBJECTIVE: VITAL SIGNS: She is afebrile, heart rate in the 80s, respiratory rate 20, oximetry is 94 on 2-08/18 li ters. She is still significantly hypertensive. Last blood pressure 193/95, but earlier today she wa s 200/95. LUNGS: Unchanged. HEART: Regular rhythm. ABDOMEN: Soft. LABORATORY DATA: White count 19.9, hemoglobin 13.4, platelets 288. Sodium 123, potassium 4.4, chloride 86, bicarbonate 29, BUN 12, creatinine 0.83. IMPRESSION: 1. Pneumonia. 2. 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 3. Large lung mass. This will need to be biopsied next week. We would recommend fluid restriction and antimicrobial therapy, in my opinion, this is appropriate. Gradual adjustment of blood pressure medicines is appropriate. I will take her off IV steroids and s witch her to p.o. prednisone.
[2017-09-03] MEDS: HumaLOG 300 UNITS/3 ML VIAL SC PRN (11:52)
[2017-09-03] MEDS: Acetaminophen 325 MG TAB PO PRN ×2 (11:59→20:49)
[2017-09-03 16:21] LABS: Mean Corpuscular HGB CONC 30.5 g/dL (32.0-36.0); Mean Corpuscular Hemoglobin 28.4 pg (27.0-31.0); Mean Corpuscular Volume 93.2 fl (81.0-99.0); Platelet Count 299 thou/uL (130-400); RBC Distribution Width 13.9 % (11.5-14.5); Red Blood Cell (RBC) Count 4.93 mill/uL (4.20-5.40); White Blood Cell (WBC) Count 19.5 thou/uL (4.8-10.8)
[2017-09-03 16:41] LABS: Band 5 % (5-11); Hypochromia SLIGHT = 6-15 cells (100X) (0-5/hpf); Lymphocytes 5 % (21-51); MDiff Complete? YES; Monocytes 2 % (0-10); Neutrophil 88 % (42-75); PLT Morphology Comment Appears Adequate
[2017-09-03] MEDS: Azithromycin 500 MG in Sodium Chloride 0.9% 250 ML 250 ML IVPB SCH (18:08)
[2017-09-03] MEDS: Lovastatin 20 MG TAB PO SCH (18:09)
[2017-09-03] MEDS: Melatonin 3 MG TAB PO PRN (20:49)
[2017-09-04] MEDS: CEFTRIAXONE 2GM/50 ML BAG 2 GM in Premix Bag 1 BAG IVPB SCH ×2 (00:04→22:50)
[2017-09-04 05:43] LABS: Anion Gap 14 mmol/L (10-20); BUN (Urea Nitrogen) 21 mg/dL (9.8-20.1); Calc. Creatinine Clearance 43 mL/min (70-130); Calcium 9.5 mg/dL (7.8-10.44); Carbon Dioxide 31 mmol/L (23-31); Chloride 85 mmol/L (98-107); Estimated GFR-MDRD 63; Glucose 76 mg/dL (80-115); Potassium 4.2 mmol/L (3.5-5.1); Sodium 126 mmol/L (136-145)
--- NOTE | 2017-09-04 06:18 | PDOC.FM ---
- Subjective Subjective: Patient states she had a good night, but her breathing is still giving her trouble. She states that she "still can't get a deep enough breath to get anything out." She also states that she has had increased pain under her breaths that she feels are from the cough. She also states she has nasal congestion as well as a bloating feeling in her abdomen to which she wishes, "she could belch is out." She denies chest pain, n/v/d, fevers, or chills. No other concerns this morning. - Objective Vital Signs & Weight: Vital Signs (12 hours) Temp Pulse Resp BP Pulse Ox 09/04/17 04:43 98.5 F 76 18 158/76 H 90 L 09/04/17 02:11 94 L 09/03/17 23:36 94 L 09/03/17 19:15 97.9 F 90 18 163/81 H 92 L 09/03/17 19:00 94 L 09/03/17 18:58 94 L 09/03/17 18:55 93 18 94 L Weight Admit Weight 46.901 kg Weight 50.53 kg I&O: 09/02/17 09/03/17 09/04/17 06:59 06:59 06:59 Intake Total 1040 652 8042 Output Total 200 1150 650 Balance 1593 -670 600 Result Diagrams: 09/03/17 16:03 09/04/17 04:17 <Paul Carrasco - Last Filed: 09/04/17 08:35> - Objective Vital Signs & Weight: Vital Signs (12 hours) Temp Pulse Pulse Pulse Resp BP BP 09/07/17 11:39 86 146/75 H 09/07/17 11:38 86 146/75 H 09/07/17 11:30 98.9 F 80 14 09/07/17 08:50 78 91 148/71 H 09/07/17 07:05 98.6 F 86 18 BP BP BP Pulse Ox 09/07/17 11:39 09/07/17 11:38 09/07/17 11:30 146/75 H 90 L 09/07/17 08:50 156/71 H 09/07/17 07:05 178/86 H 92 L Weight Admit Weight 46.901 kg Weight 50.349 kg I&O: 09/06/17 09/07/17 09/08/17 06:59 06:59 06:59 Intake Total 1200 740 Output Total 850 400 Balance 350 340 Result Diagrams: 09/03/17 16:03 09/07/17 04:24 <Afsaneh Alvarenga - Last Filed: 09/07/17 15:32> Phys Exam - Physical Examination HEENT: PERRLA, moist MMs Neck: no nodes Respiratory: no wheezing, clear to auscultation bilateral Was wheezing, resolved with duoneb Cardiovascular: RRR, no significant murmur Gastrointestinal: soft, non-tender, no distention, positive bowel sounds Musculoskeletal: no edema, pulses present Neurological: non-focal, normal sensation, moves all 4 limbs Lymphatic: no nodes Psychiatric: normal affect, A&O x 3 Skin: no rash <Paul Carrasco - Last Filed: 09/04/17 08:35> Dx/Plan (1) PNA (pneumonia) Code(s): J18.9 - PNEUMONIA, UNSPECIFIED ORGANISM Status: Acute (2) COPD (chronic obstructive pulmonary disease) Status: Acute (3) Hyponatremia Code(s): E87.1 - HYPO-OSMOLALITY AND HYPONATREMIA Status: Acute (4) Elevated brain natriuretic peptide (BNP) level Code(s): R79.89 - OTHER SPECIFIED ABNORMAL FINDINGS OF BLOOD CHEMISTRY Status : Acute (5) DM2 (diabetes mellitus, type 2) Status: Chronic QualifierTitle: Diabetes mellitus complication status: with hyperglycemia Diabetes mellitus remote computer terminal operator insulin use: unspecified halfway insulin use status Qualified Code(s): E11.65 - Type 2 diabetes mellitus with hyperglycemia (6) HTN (hypertension) Code(s): I10 - ESSENTIAL (PRIMARY) HYPERTENSION Status: Chronic QualifierTitle: Hypertension type: essential hypertension Qualified Code( s): I10 - Essential (primary) hypertension (7) HLD (hyperlipidemia) Code(s): E78.5 - HYPERLIPIDEMIA, UNSPECIFIED Status: Acute (8) Peripheral vascular disease Code(s): I73.9 - PERIPHERAL VASCULAR DISEASE, UNSPECIFIED Status: Acute (9) Lung mass Code(s): R91.8 - OTHER NONSPECIFIC ABNORMAL FINDING OF LUNG FIELD Status: Acute (10) Cavitating mass of lung Code(s): J98.4 - OTHER DISORDERS OF LUNG Status: Acute (11) History of tuberculosis Code(s): Z86.11 - PERSONAL HISTORY OF TUBERCULOSIS Status: Acute - Plan Plan: 1. Recurrent Pneumonia with Cavitary lesions - Will get Pulmonology consultation, Appreciate Dr. French's and Dr. Hebert's recs - Per Patient past hx of TB, per Pulmonary isolation can be discontinued. - Continue antibiotics - Procalcitonin not positive - Cultures negative - Legionella and Strep antigens negative 2. COPD - Continue home meds - Duonebs - Supplemental Oxygen as needed - Will add steroids 3. Lung mass - Pulmonary will coordinate for CT guided biopsy for next week 4. Hx of TB -Pulmonology doesn't believe active TB -Discontinue isolation precautions -AFB negative 5. Elevated BNP - ECHO showed EF 60-65% - Diastolic dysfunction, Mild Mitral regurgitation, and severe tricuspid regurgitation - Patient currently asymptomatic will monitor 6. DM2 - Not currently medicated - HgbA1C 5.5 - Accuchecks and SSI 7. HTN - Lisinopril/HCTZ - Monitor BP - Hydralazine as needed 8. HLD - Continue statin 9. PVD - s/p stent placement in legs and renal arteries 10. 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 <Paul Carrasco - Last Filed: 09/04/17 08:35> Attending Addendum - Attending Addendum I personally evaluated the patient and discussed the management with Dr. Carrasco on 09/04/17 I agree with the History, Examination, Assessment and Plan documented above with any addition or exceptions noted below- Patient feeling a little better. SOB improved; able to cough up sputum easier. Afebrile VSS. A/P: 1) CAP- continue current abx, O2 and steroids. Wean O2 as tolerated. 2) Lung mass- plan for CT guided biopsy on Thursday; appreciate pulmonary assistance. 3) HTN- continue to adjust medication <Afsaneh Alvarenga - Last Filed: 09/07/17 15:32>
[2017-09-04] MEDS: Mometasone/Formoterol 120 PUFF INHALER INH SCH ×2 (06:50→18:58)
[2017-09-04] MEDS: HYDROcodone/Acetaminophen 5/325 mg Tablet PO PRN ×2 (06:54→21:41)
[2017-09-04] MEDS: Oxymetazoline HCl 0.05% ( 15 ML ) NASAL PRN ×2 (07:08→21:43)
[2017-09-04] MEDS: Enoxaparin Sodium 30 MG/0.3 ML SYRINGE SC SCH (08:50)
[2017-09-04] MEDS: predniSONE 20 MG TAB PO SCH (08:50)
[2017-09-04] MEDS: hydrALAZINE 25 MG TAB PO SCH ×3 (08:50→21:41)
[2017-09-04] MEDS: Carvedilol 25 MG TAB PO SCH ×2 (08:50→16:21)
[2017-09-04] MEDS: Lisinopril/Hydrochlorothiazide 20 mg/12.5 mg Tablet PO SCH (08:50)
[2017-09-04] MEDS: Simethicone Chewable 80 MG TAB PO PRN (11:51)
--- NOTE | 2017-09-04 12:43 | PRG ---
DATE OF SERVICE: 09/04/2017 SUBJECTIVE: Bolivar Wilson has no complaints. She denies 2 negative AFB smears. Respiratory isolation can be discontinued. OBJECTIVE: VITAL SIGNS: She remains afebrile, heart rate 81, respiratory rate 18, oximetry is 91 on 4 liters, b lood pressure 138/77. LUNGS: Unchanged. CARDIOVASCULAR: Regular rhythm. ABDOMEN: Soft. IMPRESSION: 1. Pneumonia. 2. Underlying emphysema. 3. Lung mass, rule out malignancy. 4. Diabetes. 5. Hypertension. 6. History of noncompliance with followup. PLAN: CT guided needle biopsy of the right lower lobe, need to be scheduled for early next week.
[2017-09-04] MEDS ORDERED: Lidocaine 2% Viscous Solution 10 ML, Aluminum & Magnesium Hydroxide 30 ML SSW SCH (17:30)
[2017-09-04] MEDS: Lovastatin 20 MG TAB PO SCH (17:50)
[2017-09-04] MEDS: HumaLOG 300 UNITS/3 ML VIAL SC PRN (17:53)
[2017-09-04] MEDS: Azithromycin 500 MG in Sodium Chloride 0.9% 250 ML 250 ML IVPB SCH (19:19)
[2017-09-04] MEDS: Melatonin 3 MG TAB PO PRN (21:41)
[2017-09-05] MEDS: HYDROcodone/Acetaminophen 5/325 mg Tablet PO PRN (04:52)
--- NOTE | 2017-09-05 06:03 | PDOC.FM ---
- Subjective Subjective: No significant overnight events. Patient states she is doing alright this morning, although she is complaining of some shortness of breath. She feels better after nebulizer treatments. Discussed plan for lung biopsy on Thursday per pulmonology. - Objective MAR Reviewed: Yes Vital Signs & Weight: Vital Signs (12 hours) Temp Pulse Resp BP Pulse Ox 09/05/17 04:47 98.1 F 89 18 138/63 92 L 09/05/17 02:18 20 09/04/17 22:29 77 20 09/04/17 19:15 97.3 F L 83 18 134/68 94 L 09/04/17 18:46 93 20 94 L Weight Admit Weight 46.901 kg Weight 51.029 kg I&O: 09/03/17 09/04/17 09/05/17 06:59 06:59 06:59 Intake Total 480 1250 1380 Output Total 3130 491 8174 Balance -670 600 30 Result Diagrams: 09/03/17 16:03 09/05/17 05:05 EKG Reviewed by me: No Radiology Reviewed by me: No Phys Exam - Physical Examination Constitutional: NAD HEENT: moist MMs Neck: supple diffuse wheezing Cardiovascular: RRR Gastrointestinal: soft, no distention, positive bowel sounds Musculoskeletal: pulses present Neurological: moves all 4 limbs Psychiatric: A&O x 3 Skin: no rash, cap refill <2 seconds Dx/Plan (1) PNA (pneumonia) Code(s): J18.9 - PNEUMONIA, UNSPECIFIED ORGANISM Status: Acute (2) COPD (chronic obstructive pulmonary disease) Status: Acute Qualifiers: COPD type: COPD with acute exacerbation Qualified Code(s): J44.1 - Chronic obstructive pulmonary disease with (acute) exacerbation (3) Cavitating mass of lung Code(s): J98.4 - OTHER DISORDERS OF LUNG Status: Chronic (4) HLD (hyperlipidemia) Code(s): E78.5 - HYPERLIPIDEMIA, UNSPECIFIED Status: Chronic Qualifiers: Hyperlipidemia type: unspecified Qualified Code(s): E78.5 - Hyperlipidemia , unspecified (5) History of tuberculosis Code(s): Z86.11 - PERSONAL HISTORY OF TUBERCULOSIS Status: Chronic (6) Hyponatremia Code(s): E87.1 - HYPO-OSMOLALITY AND HYPONATREMIA Status: Acute (7) Lung mass Code(s): R91.8 - OTHER NONSPECIFIC ABNORMAL FINDING OF LUNG FIELD Status: Acute (8) Peripheral vascular disease Code(s): I73.9 - PERIPHERAL VASCULAR DISEASE, UNSPECIFIED Status: Chronic (9) DM2 (diabetes mellitus, type 2) Status: Chronic Qualifiers: Diabetes mellitus complication status: with hyperglycemia Diabetes mellitus chcf insulin use: unspecified middle or intermediate school principal insulin use status Qualified Code(s): E11.65 - Type 2 diabetes mellitus with hyperglycemia - Plan Plan: 1. Recurrent Pneumonia with Cavitary lesions - Appreciate Dr. French's and Dr. Hebert's recs - Per Patient past hx of TB, per Pulmonary isolation can be discontinued - No acid fast bacilli on sputum culture - Continue IV antibiotics - Procalcitonin neg - Cultures negative - Legionella and Strep antigens negative - VSS - Awaiting lung biopsy on Thursday 2. COPD - Continue home meds - Duonebs - Supplemental Oxygen as needed - PO steroids 3. Lung mass - Pulmonary will coordinate for CT guided biopsy for Thursday 4. Hx of TB -Pulmonology doesn't believe active TB; sputum culture neg -AFB negative 5. Elevated BNP - ECHO showed EF 60-65% - Diastolic dysfunction, Mild Mitral regurgitation, and severe tricuspid regurgitation - Patient currently asymptomatic, will monitor 6. DM2 - Not currently medicated - HgbA1C 5.5 - Accuchecks and SSI 7. HTN - Lisinopril/HCTZ - Monitor BP - Hydralazine as needed 8. HLD - Continue statin 9. PVD - s/p stent placement in legs and renal arteries 10. 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 Plan for biopsy of lung mass on Thursday.
[2017-09-05 06:13] LABS: Anion Gap 13 mmol/L (10-20); BUN (Urea Nitrogen) 20 mg/dL (9.8-20.1); Calc. Creatinine Clearance 54 mL/min (70-130); Calcium 9.3 mg/dL (7.8-10.44); Carbon Dioxide 31 mmol/L (23-31); Chloride 85 mmol/L (98-107); Estimated GFR-MDRD 81; Glucose 76 mg/dL (80-115); Potassium 4.4 mmol/L (3.5-5.1); Sodium 125 mmol/L (136-145)
[2017-09-05] MEDS: Mometasone/Formoterol 120 PUFF INHALER INH SCH ×2 (07:26→19:21)
[2017-09-05] MEDS: Carvedilol 25 MG TAB PO SCH ×2 (08:44→16:24)
[2017-09-05] MEDS: predniSONE 20 MG TAB PO SCH (08:44)
[2017-09-05] MEDS: hydrALAZINE 25 MG TAB PO SCH ×3 (08:44→21:16)
[2017-09-05] MEDS: Enoxaparin Sodium 30 MG/0.3 ML SYRINGE SC SCH (08:45)
[2017-09-05] MEDS: Lisinopril/Hydrochlorothiazide 20 mg/12.5 mg Tablet PO SCH (08:45)
[2017-09-05] MEDS: Oxymetazoline HCl 0.05% ( 15 ML ) NASAL PRN (08:48)
[2017-09-05] MEDS ORDERED: Lidocaine 2% Viscous Solution 10 ML, Aluminum & Magnesium Hydroxide 30 ML SSW SCH (13:15)
--- NOTE | 2017-09-05 16:13 | PRG ---
DATE OF SERVICE: 09/05/2017 OBJECTIVE: VITAL SIGNS: Bolivar Wilson is afebrile, heart rate in the 70s, respiratory rates in the teens, O2 at 4 liters oximetry 92, and blood pressure 118/57. LUNGS, HEART, AND ABDOMEN: Unchanged. She is complaining only of full feeling in her abdomen. LABORATORY DATA: Sodium 125, potassium 4.4, chloride 85, bicarbonate 31, BUN 20, creatinine 0.85. IMPRESSION: 1. Lung mass, large one on the right that is getting bigger, small one on the left. 2. Pneumonia. 3. Underlying obstructive lung disease with bullous changes today. 4. 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 PLAN: CT-guided biopsy of lung mass next week. Antimicrobial therapy can be switched to p.o. antimi crobial therapy in my opinion.
[2017-09-05] MEDS: Lovastatin 20 MG TAB PO SCH (16:25)
[2017-09-05] MEDS ORDERED: Metoclopramide HCl 10 MG/2 ML VIAL IVP SCH (16:30)
[2017-09-05] MEDS: HumaLOG 300 UNITS/3 ML VIAL SC PRN (17:38)
[2017-09-05] MEDS: Azithromycin 500 MG in Sodium Chloride 0.9% 250 ML 250 ML IVPB SCH (18:40)
--- NOTE | 2017-09-05 19:34 | ADD-PRG ---
DATE OF SERVICE: 09/05/2017 Please see notes from Dr. Yamini Myers for which I concur. The patient was seen and evaluated and examined, discussed with resident at bedside. Basically, no m ajor change overnight. He is breathing perfectly fine and is scheduled for a Pulmonary biopsy on Thu for unfortunately what appears to be the possibility of a likely lung cancer, but currently stabl e without any changes or problems. . We will continue current management until we get the biop sy results.
[2017-09-05] MEDS: Simethicone Chewable 80 MG TAB PO PRN (21:18)
[2017-09-05] MEDS: CEFTRIAXONE 2GM/50 ML BAG 2 GM in Premix Bag 1 BAG IVPB SCH (23:57)
[2017-09-06 06:02] LABS: Anion Gap 13 mmol/L (10-20); BUN (Urea Nitrogen) 17 mg/dL (9.8-20.1); Calc. Creatinine Clearance 58 mL/min (70-130); Carbon Dioxide 34 mmol/L (23-31); Chloride 83 mmol/L (98-107); Estimated GFR-MDRD 89; Glucose 80 mg/dL (80-115); Potassium 4.5 mmol/L (3.5-5.1); Sodium 125 mmol/L (136-145)
--- NOTE | 2017-09-06 06:42 | PDOC.FM ---
- Objective Vital Signs & Weight: Vital Signs (12 hours) Temp Pulse Resp BP BP Pulse Ox 09/05/17 22:21 84 20 09/05/17 21:16 85 120/57 L 09/05/17 20:00 98.5 F 85 18 120/57 L 96 09/05/17 19:02 72 20 97 Weight Admit Weight 46.901 kg Weight 51.029 kg I&O: 09/04/17 09/05/17 09/06/17 06:59 06:59 06:59 Intake Total 1250 1380 1200 Output Total 650 1350 850 Balance 600 30 350 Result Diagrams: 09/03/17 16:03 09/06/17 05:28 Dx/Plan (1) PNA (pneumonia) Code(s): J18.9 - PNEUMONIA, UNSPECIFIED ORGANISM Status: Acute (2) COPD (chronic obstructive pulmonary disease) Status: Acute Qualifiers: COPD type: COPD with acute exacerbation Qualified Code(s): J44.1 - Chronic obstructive pulmonary disease with (acute) exacerbation (3) Cavitating mass of lung Code(s): J98.4 - OTHER DISORDERS OF LUNG Status: Chronic (4) HLD (hyperlipidemia) Code(s): E78.5 - HYPERLIPIDEMIA, UNSPECIFIED Status: Chronic Qualifiers: Hyperlipidemia type: unspecified Qualified Code(s): E78.5 - Hyperlipidemia , unspecified (5) History of tuberculosis Code(s): Z86.11 - PERSONAL HISTORY OF TUBERCULOSIS Status: Chronic (6) Hyponatremia Code(s): E87.1 - HYPO-OSMOLALITY AND HYPONATREMIA Status: Acute (7) Lung mass Code(s): R91.8 - OTHER NONSPECIFIC ABNORMAL FINDING OF LUNG FIELD Status: Acute (8) Peripheral vascular disease Code(s): I73.9 - PERIPHERAL VASCULAR DISEASE, UNSPECIFIED Status: Chronic (9) DM2 (diabetes mellitus, type 2) Status: Chronic Qualifiers: Diabetes mellitus complication status: with hyperglycemia Diabetes mellitus shelter insulin use: unspecified shelter insulin use status Qualified Code(s): E11.65 - Type 2 diabetes mellitus with hyperglycemia - Plan Plan: 1. Recurrent Pneumonia with Cavitary lesions - Appreciate Dr. French's and Dr. Hebert's recs - Per Patient past hx of TB, per Pulmonary isolation can be discontinued - No acid fast bacilli on sputum culture - Finished course of IV abx - Procalcitonin neg - Cultures negative - Legionella and Strep antigens negative - VSS - Awaiting lung biopsy on Thursday 2. COPD - Continue home meds - Duonebs - Supplemental Oxygen as needed - PO steroids 3. Lung mass - Pulmonary will coordinate for CT guided biopsy for Thursday 4. Hx of TB -Pulmonology doesn't believe active TB; sputum culture neg -AFB negative 5. Elevated BNP - ECHO showed EF 60-65% - Diastolic dysfunction, Mild Mitral regurgitation, and severe tricuspid regurgitation - Patient currently asymptomatic, will monitor 6. DM2 - Not currently medicated - HgbA1C 5.5 - Accuchecks and SSI 7. HTN - Lisinopril/HCTZ - Monitor BP - Hydralazine as needed 8. HLD - Continue statin 9. PVD - s/p stent placement in legs and renal arteries 10. 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 Elevated bicarb - Could be due to contraction alkalosis - Continue to monitor Disposition: Stable, Will continue current plan of care. Plan for biopsy of lung mass on Thursday.
[2017-09-06] MEDS: Mometasone/Formoterol 120 PUFF INHALER INH SCH ×2 (08:36→18:49)
[2017-09-06] MEDS: predniSONE 20 MG TAB PO SCH (08:49)
[2017-09-06] MEDS: Carvedilol 25 MG TAB PO SCH ×2 (08:49→17:39)
[2017-09-06] MEDS: Enoxaparin Sodium 30 MG/0.3 ML SYRINGE SC SCH (08:50)
[2017-09-06] MEDS: hydrALAZINE 25 MG TAB PO SCH ×3 (08:50→21:09)
[2017-09-06] MEDS: Lisinopril/Hydrochlorothiazide 20 mg/12.5 mg Tablet PO SCH (08:54)
[2017-09-06] MEDS: HYDROcodone/Acetaminophen 5/325 mg Tablet PO PRN (14:31)
--- NOTE | 2017-09-06 15:22 | ADD-PRG ---
DATE OF SERVICE: 09/06/2017 Please see note [address]. Myers for which I concur. The patient was seen and evaluated and examin ed with the residents by bedside. Basically, no change overnight. His orders are waiting on the CT- guided lung mass biopsy tomorrow, but her lung sounds clear today and she has not really had any luke r complaints of shortness of breath or chest pain, and otherwise decisions on next step is going to b e all pending the pathology on this.
[2017-09-06] MEDS: Lovastatin 20 MG TAB PO SCH (17:39)
[2017-09-06] MEDS: HumaLOG 300 UNITS/3 ML VIAL SC PRN (17:43)
[2017-09-06] MEDS: Simethicone Chewable 80 MG TAB PO SCH ×2 (21:00→21:10)
[2017-09-06] MEDS: Melatonin 3 MG TAB PO PRN (23:32)
--- NOTE | 2017-09-06 23:52 | PRG ---
DATE OF SERVICE: 09/06/2017 Bolivar Wilson's only complaint is that she feels like she needs to have a bowel movement and also feel s like that she has a lot of gas. Reviewing her order, she does have an order for simethicone, but it is ordered p.r.n. We will probab ly need to just give this to her routinely since she is not asking for it. So, I have changed the order for this. She is tentatively on the schedule hopefully for CT-guided needle biopsy tomorrow. Her pneumonia is stable. She is not wheezing on exam. Her lungs are completely clear with the exception of distant breath william nds and decreased breath sounds at her right lateral base. There are no new problems. She has a lit tle concern about the biopsy. I have again explained the risks even on not doing the procedure. The risks of the lung collapse were extremely low, given that this large mass is probably adherent to th e pleura on the right.
[2017-09-07 05:34] LABS: Anion Gap 12 mmol/L (10-20); BUN (Urea Nitrogen) 19 mg/dL (9.8-20.1); Calc. Creatinine Clearance 59 mL/min (70-130); Calcium 9.2 mg/dL (7.8-10.44); Carbon Dioxide 36 mmol/L (23-31); Chloride 83 mmol/L (98-107); Estimated GFR-MDRD 90; Sodium 127 mmol/L (136-145)
[2017-09-07 05:40] LABS: Glucose 57 mg/dL (80-115)
--- NOTE | 2017-09-07 06:08 | PDOC.FM ---
- Subjective Subjective: Patient states she did not have a good night. She states she can never get sleep in the hospital. She does note that her breathing is better, but now her newest complaint is that her nose is too dry. She states that the burning pain in her side comes and goes and she never knows when it will happen. She denies chest pain, n/v/d, fevers, or chills. She states she doesn't need the oxygen chronically and feels she would do better without it. She has a lot of anxiety and fear about the procedure and especially the pain associated with the procedure today. No other concerns this morning. - Objective Vital Signs & Weight: Vital Signs (12 hours) Temp Pulse Resp BP BP Pulse Ox 09/07/17 03:16 97.8 F 84 16 152/70 H 93 L 09/07/17 02:24 85 16 95 09/06/17 23:00 97.4 F L 79 16 154/70 H 95 09/06/17 22:27 78 16 95 09/06/17 21:09 80 154/67 H 09/06/17 20:00 97.7 F 80 20 94 L 09/06/17 18:49 20 94 L 09/06/17 18:46 81 20 94 L Weight Admit Weight 46.901 kg Weight 50.349 kg I&O: 09/05/17 09/06/17 09/07/17 06:59 06:59 06:59 Intake Total 1380 1200 740 Output Total 1350 850 400 Balance 30 350 340 Result Diagrams: 09/03/17 16:03 09/07/17 04:24 Phys Exam - Physical Examination HEENT: PERRLA, moist MMs Neck: no nodes Respiratory: no wheezing, clear to auscultation bilateral Cardiovascular: RRR, no significant murmur Gastrointestinal: soft, non-tender, no distention, positive bowel sounds Musculoskeletal: no edema Neurological: non-focal, normal sensation, moves all 4 limbs Lymphatic: no nodes Psychiatric: normal affect, A&O x 3 Skin: no rash Dx/Plan (1) PNA (pneumonia) Code(s): J18.9 - PNEUMONIA, UNSPECIFIED ORGANISM Status: Acute (2) COPD (chronic obstructive pulmonary disease) Status: Acute Qualifiers: COPD type: COPD with acute exacerbation Qualified Code(s): J44.1 - Chronic obstructive pulmonary disease with (acute) exacerbation (3) Hyponatremia Code(s): E87.1 - HYPO-OSMOLALITY AND HYPONATREMIA Status: Acute (4) Elevated brain natriuretic peptide (BNP) level Code(s): R79.89 - OTHER SPECIFIED ABNORMAL FINDINGS OF BLOOD CHEMISTRY Status : Acute (5) DM2 (diabetes mellitus, type 2) Status: Chronic Qualifiers: Diabetes mellitus complication status: with hyperglycemia Diabetes mellitus senior care insulin use: unspecified senior care insulin use status Qualified Code(s): E11.65 - Type 2 diabetes mellitus with hyperglycemia (6) HTN (hypertension) Code(s): I10 - ESSENTIAL (PRIMARY) HYPERTENSION Status: Chronic Qualifiers: Hypertension type: essential hypertension Qualified Code(s): I10 - Essential (primary) hypertension (7) HLD (hyperlipidemia) Code(s): E78.5 - HYPERLIPIDEMIA, UNSPECIFIED Status: Chronic Qualifiers: Hyperlipidemia type: unspecified Qualified Code(s): E78.5 - Hyperlipidemia , unspecified (8) Peripheral vascular disease Code(s): I73.9 - PERIPHERAL VASCULAR DISEASE, UNSPECIFIED Status: Chronic (9) Lung mass Code(s): R91.8 - OTHER NONSPECIFIC ABNORMAL FINDING OF LUNG FIELD Status: Acute (10) Cavitating mass of lung Code(s): J98.4 - OTHER DISORDERS OF LUNG Status: Chronic (11) History of tuberculosis Code(s): Z86.11 - PERSONAL HISTORY OF TUBERCULOSIS Status: Chronic - Plan Plan: 1. Recurrent Pneumonia with Cavitary lesions - Appreciate Dr. French's and Dr. Hebert's recs - Per Patient past hx of TB, per Pulmonary isolation can be discontinued - No acid fast bacilli on sputum culture - Finished course of IV abx - Procalcitonin neg - Cultures negative - Legionella and Strep antigens negative - VSS - Awaiting lung biopsy 2. COPD - Continue home meds - Duonebs - Supplemental Oxygen as needed - PO steroids 3. Lung mass - Pulmonary will coordinate for CT guided biopsy for today - Will await results of biopsy 4. Hx of TB -Pulmonology doesn't believe active TB; sputum culture neg -AFB negative 5. Elevated BNP - ECHO showed EF 60-65% - Diastolic dysfunction, Mild Mitral regurgitation, and severe tricuspid regurgitation - Patient currently asymptomatic, will monitor 6. DM2 - Not currently medicated - HgbA1C 5.5 - Accuchecks and SSI 7. HTN - Lisinopril/HCTZ - Monitor BP - Hydralazine as needed 8. HLD - Continue statin 9. PVD - s/p stent placement in legs and renal arteries 10. 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 Elevated bicarb - Could be due to contraction alkalosis - Continue to monitor Disposition: Stable, Will continue current plan of care. Await Pulmonology recs.
[2017-09-07 07:27] LABS: PTT 30.8 SEC (22.9-36.1); Prothrombin Time 13.6 SEC (12.0-14.7)
[2017-09-07] MEDS: Mometasone/Formoterol 120 PUFF INHALER INH SCH ×2 (08:28→20:27)
[2017-09-07] MEDS: Carvedilol 25 MG TAB PO SCH ×2 (11:38→17:17)
[2017-09-07] MEDS: hydrALAZINE 25 MG TAB PO SCH ×3 (11:38→21:44)
[2017-09-07] MEDS: predniSONE 20 MG TAB PO SCH (11:39)
[2017-09-07] MEDS: Simethicone Chewable 80 MG TAB PO SCH ×4 (11:39→21:44)
[2017-09-07] MEDS: Lisinopril/Hydrochlorothiazide 20 mg/12.5 mg Tablet PO SCH (11:39)
--- NOTE | 2017-09-07 12:19 | ADD-PRG ---
DATE OF SERVICE: 09/07/2017 This is an addendum to the note of Dr. Paul Carrasco. Ms. Wilson appears cachectic and short of breath. She was initially admitted with chief complaints of shortness of breath and treated for pneumonia. Chest x-ray did reveal a large lung mass for which w e are awaiting today a needle biopsy. In any event, she is on DuoNeb treatments and still appears so mewhat short of breath. I feel her lung mass is likely a malignancy, but we will await results of [facility] of the needle biopsy. Pulmonology is also following the case with us.
[2017-09-07] MEDS ORDERED: Fentanyl 100 MCG/2 ML VIAL ONE (13:08)
[2017-09-07] MEDS ORDERED: Midazolam HCl 2 mg/2 ml Vial ONE (13:08)
--- NOTE | 2017-09-07 15:49 | CT ---
CT GUIDED PERCUTANEOUS BIOPSY OF A RIGHT LOWER LOBE MASS: DATE: 09/07/17. HISTORY: Right lower lobe mass. TECHNIQUE: After informed consent was obtained, the patient was placed on the CT scan table in the left lateral decubitus position with grid localizer in place. Noncontrasted CT scan was obtained through the leve l of the right lower lobe mass. An area was marked and then meticulously prepped and draped in the usual sterile fashion. The skin a nd subcutaneous tissues were infiltrated with buffered 1% Lidocaine for local anesthesia. A small sk in incision was made. A 17-gauge guide needle was advanced followed by [address] imag es. The needle was then again advanced with repeat imaging until the needle was placed within the mo st peripheral aspect of the right lower lobe mass. A total of 2 18-gauge core needle biopsy specimens were obtained, each of which is approximately 2 cm in length. The introducer needle was then removed, and hemostasis was achieved with direct pressure . A noncontrasted CT scan was obtained through the level of the biopsy site which demonstrated no pneum othorax or increase in fluid or findings to suggest hematoma. A dry sterile dressing was placed. Th e patient tolerated the procedure well without immediate complication. IMPRESSION: 1. Right lower lobe mass. 2. Technically successful CT-guided percutaneous biopsy of right lower lobe mass. Pathology is curr ently pending. 3. Post biopsy imaging does not demonstrate evidence of a pneumothorax or findings to suggest hemato ma. POS: [facility]
--- NOTE | 2017-09-07 16:03 | RAD ---
AP CHEST RADIOGRAPH WITH INSPIRATION AND EXPIRATION: Date: 09-07-17 History: Patient is post right lung biopsy. FINDINGS: Mass like opacities at the right lung base and in the right midlung zone are again seen and not signi ficantly changed. Increased interstitial opacities are again seen diffusely throughout the lungs with greater patchy parenchymal opacity at the left lung base. Bilateral pleural effusions are seen. Agai n noted are emphysematous changes bilaterally with linear scarring in the left lung apex. Cardiac grazyna houette is magnified by projection but stable in size. There is no evidence of a pneumothorax. No oth er interval change. IMPRESSION: 1. No evidence of pneumothorax. 2. Stable parenchymal opacities which demonstrate mass like appearance in the right lower lobe and ri ght midlung zones. 3. Small bilateral pleural effusions. 4. Chronic lung changes and evidence of COPD. POS: [facility]
[2017-09-07] MEDS: Lovastatin 20 MG TAB PO SCH (17:17)
[2017-09-07] MEDS: Acetaminophen 325 MG TAB PO PRN (20:02)
[2017-09-07] MEDS: Melatonin 3 MG TAB PO PRN (21:44)
[2017-09-07] MEDS: Oxymetazoline HCl 0.05% ( 15 ML ) NASAL PRN (21:46)
[2017-09-08] MEDS: HYDROcodone/Acetaminophen 5/325 mg Tablet PO PRN ×2 (00:15→22:48)
[2017-09-08 05:54] LABS: Anion Gap 15 mmol/L (10-20); BUN (Urea Nitrogen) 19 mg/dL (9.8-20.1); Calc. Creatinine Clearance 56 mL/min (70-130); Carbon Dioxide 29 mmol/L (23-31); Chloride 83 mmol/L (98-107); Estimated GFR-MDRD 89; Glucose 70 mg/dL (80-115); Potassium 4.7 mmol/L (3.5-5.1); Sodium 122 mmol/L (136-145)
--- NOTE | 2017-09-08 06:18 | PDOC.FM ---
- Subjective Subjective: Patient states she is feeling well. She states her breathing is improved, but "still can't a deep enough breath." Patient states that she had the CT guided biopsy yesterday and has no residual pain from the procedure. She denies any chest pain, n/v/d. She does admit to wheezing and coughing. She states the treatments and inhalers help her. I discussed with her the use of a spirometer to work on deep breaths and she was not interested in this as she said it is no different than an inhaler. She has no other concerns this morning. - Objective Vital Signs & Weight: Vital Signs (12 hours) Temp Pulse Resp BP BP Pulse Ox 09/08/17 05:14 99 09/08/17 04:00 98.5 F 82 18 162/74 H 93 L 09/08/17 01:44 75 18 97 09/07/17 21:44 73 142/72 H 09/07/17 21:26 93 18 98 09/07/17 20:30 82 18 99 09/07/17 20:27 82 18 99 09/07/17 19:55 98.8 F 73 22 H 142/72 H 93 L Weight Admit Weight 46.901 kg Weight 49.668 kg I&O: 09/06/17 09/07/17 09/08/17 06:59 06:59 06:59 Intake Total 1200 740 Output Total 850 400 Balance 350 340 Result Diagrams: 09/03/17 16:03 09/08/17 04:19 Phys Exam - Physical Examination HEENT: PERRLA, moist MMs Neck: no nodes, no JVD Respiratory: no wheezing, clear to auscultation bilateral Cardiovascular: RRR, no significant murmur Gastrointestinal: soft, non-tender, no distention, positive bowel sounds Musculoskeletal: no edema Neurological: non-focal, normal sensation, moves all 4 limbs Lymphatic: no nodes Psychiatric: normal affect, A&O x 3 Skin: no rash Dx/Plan (1) PNA (pneumonia) Code(s): J18.9 - PNEUMONIA, UNSPECIFIED ORGANISM Status: Acute (2) COPD (chronic obstructive pulmonary disease) Status: Acute Qualifiers: COPD type: COPD with acute exacerbation Qualified Code(s): J44.1 - Chronic obstructive pulmonary disease with (acute) exacerbation (3) Hyponatremia Code(s): E87.1 - HYPO-OSMOLALITY AND HYPONATREMIA Status: Acute (4) Elevated brain natriuretic peptide (BNP) level Code(s): R79.89 - OTHER SPECIFIED ABNORMAL FINDINGS OF BLOOD CHEMISTRY Status : Acute (5) DM2 (diabetes mellitus, type 2) Status: Chronic Qualifiers: Diabetes mellitus complication status: with hyperglycemia Diabetes mellitus group home insulin use: unspecified group home insulin use status Qualified Code(s): E11.65 - Type 2 diabetes mellitus with hyperglycemia (6) HTN (hypertension) Code(s): I10 - ESSENTIAL (PRIMARY) HYPERTENSION Status: Chronic Qualifiers: Hypertension type: essential hypertension Qualified Code(s): I10 - Essential (primary) hypertension (7) HLD (hyperlipidemia) Code(s): E78.5 - HYPERLIPIDEMIA, UNSPECIFIED Status: Chronic Qualifiers: Hyperlipidemia type: unspecified Qualified Code(s): E78.5 - Hyperlipidemia , unspecified (8) Peripheral vascular disease Code(s): I73.9 - PERIPHERAL VASCULAR DISEASE, UNSPECIFIED Status: Chronic (9) Lung mass Code(s): R91.8 - OTHER NONSPECIFIC ABNORMAL FINDING OF LUNG FIELD Status: Acute (10) Cavitating mass of lung Code(s): J98.4 - OTHER DISORDERS OF LUNG Status: Chronic (11) History of tuberculosis Code(s): Z86.11 - PERSONAL HISTORY OF TUBERCULOSIS Status: Chronic - Plan Plan: 1. Recurrent Pneumonia with Cavitary lesions - Appreciate Dr. French's and Dr. Hebert's recs - Per Patient past hx of TB, per Pulmonary isolation can be discontinued - No acid fast bacilli on sputum culture - Finished course of IV abx - Procalcitonin neg - Cultures negative - Legionella and Strep antigens negative - VSS - Awaiting results of lung biopsy 2. COPD - Continue home meds - Duonebs - Supplemental Oxygen as needed - PO steroids 3. Lung mass - CT guided biopsy 09/07 - Will await results of biopsy 4. Hx of TB - Pulmonology doesn't believe active TB; sputum culture neg - AFB negative 5. Elevated BNP - ECHO showed EF 60-65% - Diastolic dysfunction, Mild Mitral regurgitation, and severe tricuspid regurgitation - Patient currently asymptomatic, will monitor 6. DM2 - Not currently medicated - HgbA1C 5.5 - Accuchecks and SSI 7. HTN - Lisinopril/HCTZ - Monitor BP - Hydralazine as needed 8. HLD - Continue statin 9. PVD - s/p stent placement in legs and renal arteries 10. 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 Elevated bicarb - Could be due to contraction alkalosis - Continue to monitor Disposition: Stable, Will continue current plan of care. Await biopsy results and Pulmonology recs.
[2017-09-08] MEDS: Mometasone/Formoterol 120 PUFF INHALER INH SCH ×2 (06:56→19:39)
[2017-09-08] MEDS: Lisinopril/Hydrochlorothiazide 20 mg/12.5 mg Tablet PO SCH (09:47)
[2017-09-08] MEDS: hydrALAZINE 25 MG TAB PO SCH ×3 (09:47→22:47)
[2017-09-08] MEDS: Carvedilol 25 MG TAB PO SCH ×2 (09:48→16:20)
[2017-09-08] MEDS: Simethicone Chewable 80 MG TAB PO SCH ×4 (09:48→22:47)
[2017-09-08] MEDS: predniSONE 20 MG TAB PO SCH (09:49)
--- NOTE | 2017-09-08 11:36 | PRG ---
DATE OF SERVICE: 09/07/2017 SUBJECTIVE: Ms. Wilson was stable. Biopsy was scheduled for later in the morning. Her hemodynamics have been stable. She had no wheezes on exam. IMPRESSION: 1. Community-acquired pneumonia. 2. Lung mass, likely malignant. I have again explained this to her. She is scheduled for CT-guided biopsy, but the time of the biopsy was unclear when I evaluated the patient in the morning.
[2017-09-08] MEDS: Sodium Chloride 0.9% 1,000 ML IV SCH ×2 (13:14→22:46)
--- NOTE | 2017-09-08 13:53 | ADD-PRG ---
DATE OF SERVICE: 09/08/2017 This is an addendum to the note of Dr. Paul Carrasco. Ms. Wilson has recently returned from her lung biopsy. Results are still pending. Further evaluation will depend on the results of this biopsy. The patient is also being seen by Dr. Hebert in the Pulmo nary Service.
[2017-09-08] MEDS: Lovastatin 20 MG TAB PO SCH (17:32)
[2017-09-08 17:40] LABS: Anion Gap 13 mmol/L (10-20); BUN (Urea Nitrogen) 20 mg/dL (9.8-20.1); Calc. Creatinine Clearance 43 mL/min (70-130); Calcium 9.2 mg/dL (7.8-10.44); Carbon Dioxide 35 mmol/L (23-31); Chloride 79 mmol/L (98-107); Estimated GFR-MDRD 65; Glucose 225 mg/dL (80-115); Potassium 4.5 mmol/L (3.5-5.1); Sodium 122 mmol/L (136-145)
--- NOTE | 2017-09-08 22:23 | PRG ---
DATE OF SERVICE: 09/08/2017 SUBJECTIVE: Bolivar Wilson successfully underwent a biopsy yesterday. No new problems. OBJECTIVE: Her vital signs are stable. CT-guided biopsy was done. Pathology is pending. We will continue to follow.
[2017-09-08] MEDS: Melatonin 3 MG TAB PO PRN (22:48)
[2017-09-09] MEDS: Sodium Chloride 0.9% 1,000 ML IV SCH (04:18)
[2017-09-09 06:15] LABS: Anion Gap 13 mmol/L (10-20); BUN (Urea Nitrogen) 18 mg/dL (9.8-20.1); Calc. Creatinine Clearance 51 mL/min (70-130); Calcium 9.4 mg/dL (7.8-10.44); Carbon Dioxide 33 mmol/L (23-31); Chloride 84 mmol/L (98-107); Estimated GFR-MDRD 78; Glucose 80 mg/dL (80-115); Potassium 4.2 mmol/L (3.5-5.1); Sodium 126 mmol/L (136-145)
--- NOTE | 2017-09-09 06:24 | PDOC.FM ---
- Objective Vital Signs & Weight: Vital Signs (12 hours) Temp Pulse Resp BP BP BP Pulse Ox 09/09/17 03:31 97 09/09/17 03:26 97.5 F L 76 20 145/66 H 89 L 09/09/17 00:37 158/70 H 09/09/17 00:17 96.9 F L 78 20 92 L 09/08/17 23:10 79 18 95 09/08/17 22:47 82 138/66 09/08/17 19:45 82 18 97 09/08/17 19:39 82 18 97 09/08/17 19:25 98.3 F 82 18 138/66 97 Weight Admit Weight 46.901 kg Weight 49.668 kg I&O: 09/07/17 09/08/17 09/09/17 06:59 06:59 06:59 Intake Total 740 480 600 Output Total 400 350 500 Balance 340 130 100 Result Diagrams: 09/03/17 16:03 09/09/17 05:48 Dx/Plan (1) PNA (pneumonia) Code(s): J18.9 - PNEUMONIA, UNSPECIFIED ORGANISM Status: Acute (2) COPD (chronic obstructive pulmonary disease) Status: Acute Qualifiers: COPD type: COPD with acute exacerbation Qualified Code(s): J44.1 - Chronic obstructive pulmonary disease with (acute) exacerbation (3) Hyponatremia Code(s): E87.1 - HYPO-OSMOLALITY AND HYPONATREMIA Status: Acute (4) Elevated brain natriuretic peptide (BNP) level Code(s): R79.89 - OTHER SPECIFIED ABNORMAL FINDINGS OF BLOOD CHEMISTRY Status : Acute (5) DM2 (diabetes mellitus, type 2) Status: Chronic Qualifiers: Diabetes mellitus complication status: with hyperglycemia Diabetes mellitus group home insulin use: unspecified group home insulin use status Qualified Code(s): E11.65 - Type 2 diabetes mellitus with hyperglycemia (6) HTN (hypertension) Code(s): I10 - ESSENTIAL (PRIMARY) HYPERTENSION Status: Chronic Qualifiers: Hypertension type: essential hypertension Qualified Code(s): I10 - Essential (primary) hypertension (7) HLD (hyperlipidemia) Code(s): E78.5 - HYPERLIPIDEMIA, UNSPECIFIED Status: Chronic Qualifiers: Hyperlipidemia type: unspecified Qualified Code(s): E78.5 - Hyperlipidemia , unspecified (8) Peripheral vascular disease Code(s): I73.9 - PERIPHERAL VASCULAR DISEASE, UNSPECIFIED Status: Chronic (9) Lung mass Code(s): R91.8 - OTHER NONSPECIFIC ABNORMAL FINDING OF LUNG FIELD Status: Acute (10) Cavitating mass of lung Code(s): J98.4 - OTHER DISORDERS OF LUNG Status: Chronic (11) History of tuberculosis Code(s): Z86.11 - PERSONAL HISTORY OF TUBERCULOSIS Status: Chronic - Plan Plan: 1. Recurrent Pneumonia with Cavitary lesions - Appreciate Dr. French's and Dr. Hebert's recs - Per Patient past hx of TB, per Pulmonary isolation can be discontinued - No acid fast bacilli on sputum culture - Finished course of IV abx - Procalcitonin neg - Cultures negative - Legionella and Strep antigens negative - VSS - Awaiting results of lung biopsy 2. COPD - Continue home meds - Duonebs - Supplemental Oxygen as needed - PO steroids 3. Lung mass - CT guided biopsy 09/07 - Will await results of biopsy - Will defer to Pulmonology recs 4. Hx of TB - Pulmonology doesn't believe active TB; sputum culture neg - AFB negative 5. Elevated BNP - ECHO showed EF 60-65% - Diastolic dysfunction, Mild Mitral regurgitation, and severe tricuspid regurgitation - Patient currently asymptomatic, will monitor 6. DM2 - Not currently medicated - HgbA1C 5.5 - Accuchecks and SSI 7. HTN - Lisinopril/HCTZ - Monitor BP - Hydralazine as needed 8. HLD - Continue statin 9. PVD - s/p stent placement in legs and renal arteries 10. 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 Elevated bicarb - Could be due to contraction alkalosis - Continue to monitor Disposition: Stable, Will continue current plan of care. Await biopsy results and Pulmonology recs.
[2017-09-09] MEDS: Mometasone/Formoterol 120 PUFF INHALER INH SCH ×2 (07:41→18:20)
[2017-09-09] MEDS: Lisinopril/Hydrochlorothiazide 20 mg/12.5 mg Tablet PO SCH (08:36)
[2017-09-09] MEDS: Carvedilol 25 MG TAB PO SCH ×2 (08:37→16:15)
[2017-09-09] MEDS: predniSONE 20 MG TAB PO SCH (08:37)
[2017-09-09] MEDS: hydrALAZINE 25 MG TAB PO SCH ×3 (08:37→21:12)
[2017-09-09] MEDS: Simethicone Chewable 80 MG TAB PO SCH (08:37)
[2017-09-09] MEDS ORDERED: Simethicone Chewable 80 MG TAB PO PRN (11:14)
[2017-09-09] MEDS ORDERED: Polyethylene Glycol 3350 17 GM Packet PO SCH (11:30)
--- NOTE | 2017-09-09 11:54 | ADD-PRG ---
DATE OF SERVICE: 09/09/2017 This is an addendum to the note of Dr. Paul Carrasco. Ms. Wilson is still awaiting the results of her needle biopsy. Her abdomen is slightly distended and she complains of bloating, but no abdominal pain, nausea or vomiting. We will institute some treatme nt by increasing Simethicone and adding MiraLax. Further treatment depending on results of pathology . Clinically, no significant change. With fluid restriction her sodium is increasing.
[2017-09-09] MEDS: Lovastatin 20 MG TAB PO SCH (16:15)
--- NOTE | 2017-09-09 17:32 | PRG ---
DATE OF SERVICE: 09/09/2017 SUBJECTIVE: Ms. Wilson underwent a biopsy and denies having any discomfort. Since her biopsy, she denies shortness of breath. OBJECTIVE: LUNGS: She has equal breath sounds. HEART: Regular rhythm. ABDOMEN: Soft. Biopsy showed adenocarcinoma. I have relayed this information to her. We do not have her on room air yet. She is very opposed to going home with oxygen. She is also very opposed to going home with a nebulizer. She states she will keep an appointment in 2-3 weeks with the oncologist if this is set up. It would be reasonable to let her go in the morning, but ahe probably needs a room air sat check for documentation that we tried to prescribe oxygen. I have a feeling she will not wear it. MALIKD
[2017-09-09] MEDS: HumaLOG 300 UNITS/3 ML VIAL SC PRN (21:18)
[2017-09-10] MEDS: Acetaminophen 325 MG TAB PO PRN (03:50)
[2017-09-10] MEDS: Mometasone/Formoterol 120 PUFF INHALER INH SCH ×2 (06:13→19:45)
--- NOTE | 2017-09-10 06:20 | PDOC.FM ---
- Subjective Subjective: Patient was given pathology results yesterday. She states that she doesn't have great support at home and is willing to stay in the hospital until everything can be set up. She repeatedly told me that she is not interested in leaving the hospital with oxygen because she doesn't want to be limited by it. She also states that she knows all about the cancer stuff because her from bone cancer years ago. She denies chest pain, n/v/d, fevers, or chills. She states that she doesn't have a ton of help at home. She states the rattling in her chest is still present and her breathing is still not back to normal. No other concerns this morning. - Objective Vital Signs & Weight: Vital Signs (12 hours) Temp Pulse Resp BP BP Pulse Ox 09/10/17 06:13 76 12 09/10/17 06:11 76 12 09/10/17 03:54 98.1 F 87 16 157/74 H 94 L 09/10/17 02:35 96 09/09/17 23:23 97.4 F L 85 20 155/90 H 98 09/09/17 23:20 62 18 96 09/09/17 21:12 78 122/58 L 09/09/17 21:06 97 09/09/17 20:00 97.4 F L 78 20 97 09/09/17 19:27 97.5 F L 78 20 122/58 L 84 L 09/09/17 18:20 70 18 95 Weight Admit Weight 46.901 kg Weight 49.668 kg I&O: 09/08/17 09/09/17 09/10/17 06:59 06:59 06:59 Intake Total 186 248 9465 Output Total 350 500 400 Balance 130 100 618 Result Diagrams: 09/03/17 16:03 09/10/17 05:56 Phys Exam - Physical Examination Constitutional: NAD HEENT: PERRLA, moist MMs Neck: no nodes Respiratory: wheezing present Cardiovascular: RRR, no significant murmur Gastrointestinal: soft, non-tender, no distention, positive bowel sounds Musculoskeletal: no edema Neurological: non-focal, normal sensation, moves all 4 limbs Lymphatic: no nodes Psychiatric: normal affect, A&O x 3 Skin: no rash Dx/Plan (1) PNA (pneumonia) Code(s): J18.9 - PNEUMONIA, UNSPECIFIED ORGANISM Status: Acute (2) COPD (chronic obstructive pulmonary disease) Status: Acute Qualifiers: COPD type: COPD with acute exacerbation Qualified Code(s): J44.1 - Chronic obstructive pulmonary disease with (acute) exacerbation (3) Hyponatremia Code(s): E87.1 - HYPO-OSMOLALITY AND HYPONATREMIA Status: Acute (4) Elevated brain natriuretic peptide (BNP) level Code(s): R79.89 - OTHER SPECIFIED ABNORMAL FINDINGS OF BLOOD CHEMISTRY Status : Acute (5) DM2 (diabetes mellitus, type 2) Status: Chronic Qualifiers: Diabetes mellitus complication status: with hyperglycemia Diabetes mellitus care home insulin use: unspecified moth exterminator insulin use status Qualified Code(s): E11.65 - Type 2 diabetes mellitus with hyperglycemia (6) HTN (hypertension) Code(s): I10 - ESSENTIAL (PRIMARY) HYPERTENSION Status: Chronic Qualifiers: Hypertension type: essential hypertension Qualified Code(s): I10 - Essential (primary) hypertension (7) HLD (hyperlipidemia) Code(s): E78.5 - HYPERLIPIDEMIA, UNSPECIFIED Status: Chronic Qualifiers: Hyperlipidemia type: unspecified Qualified Code(s): E78.5 - Hyperlipidemia , unspecified (8) Peripheral vascular disease Code(s): I73.9 - PERIPHERAL VASCULAR DISEASE, UNSPECIFIED Status: Chronic (9) Lung mass Code(s): R91.8 - OTHER NONSPECIFIC ABNORMAL FINDING OF LUNG FIELD Status: Acute (10) Cavitating mass of lung Code(s): J98.4 - OTHER DISORDERS OF LUNG Status: Chronic (11) History of tuberculosis Code(s): Z86.11 - PERSONAL HISTORY OF TUBERCULOSIS Status: Chronic (12) Adenocarcinoma of lung Code(s): C34.90 - MALIGNANT NEOPLASM OF UNSP PART OF UNSP BRONCHUS OR LUNG Status: Acute - Plan Plan: 1. Recurrent Pneumonia with Cavitary lesions - Appreciate Dr. French's and Dr. Hebert's recs - Per Patient past hx of TB, per Pulmonary isolation can be discontinued - No acid fast bacilli on sputum culture - Finished course of IV abx - Procalcitonin neg - Cultures negative - Legionella and Strep antigens negative - VSS 2. COPD - Continue home meds - Duonebs - Supplemental Oxygen as needed, Home oxygen study pending. - PO steroids 3. Lung mass - CT guided biopsy 09/07 - Adenocarcinoma of lung - Will defer to Pulmonology recs 4. Hx of TB - Pulmonology doesn't believe active TB; sputum culture neg - AFB negative 5. Elevated BNP - ECHO showed EF 60-65% - Diastolic dysfunction, Mild Mitral regurgitation, and severe tricuspid regurgitation - Patient currently asymptomatic, will monitor 6. DM2 - Not currently medicated - HgbA1C 5.5 - Accuchecks and SSI 7. HTN - Lisinopril/HCTZ - Monitor BP - Hydralazine as needed 8. HLD - Continue statin 9. PVD - s/p stent placement in legs and renal arteries 10. 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 Elevated bicarb - Could be due to contraction alkalosis - Continue to monitor 12. Adenocarcinoma of lung - Biopsy results - Will set up for outpatient Oncologist visit Disposition: Stable, Can be discharged home today with outpatient follow up.
[2017-09-10 06:27] LABS: Anion Gap 13 mmol/L (10-20); BUN (Urea Nitrogen) 17 mg/dL (9.8-20.1); Calc. Creatinine Clearance 54 mL/min (70-130); Calcium 9.2 mg/dL (7.8-10.44); Carbon Dioxide 36 mmol/L (23-31); Chloride 83 mmol/L (98-107); Estimated GFR-MDRD 84; Glucose 71 mg/dL (80-115); Potassium 4.1 mmol/L (3.5-5.1); Sodium 128 mmol/L (136-145)
[2017-09-10] MEDS: Carvedilol 25 MG TAB PO SCH ×2 (08:21→17:49)
[2017-09-10] MEDS: Polyethylene Glycol 3350 17 GM Packet PO SCH (08:21)
[2017-09-10] MEDS: predniSONE 20 MG TAB PO SCH (08:21)
[2017-09-10] MEDS: Lisinopril/Hydrochlorothiazide 20 mg/12.5 mg Tablet PO SCH (08:22)
[2017-09-10] MEDS: hydrALAZINE 25 MG TAB PO SCH ×3 (08:22→22:15)
[2017-09-10 11:22] VITALS: BMI 18.8
--- NOTE | 2017-09-10 12:45 | ADD-PRG ---
DATE OF SERVICE: 09/10/2017 This is an addendum to the note of Dr. Paul Carrasco. Ms. Wilson's biopsy has been returned as adenocarcinoma. We will arrange for her to follow up with [facility] oncologist in 1-2 weeks. We are currently monitoring her for possible need for home O2. It is lik markus she will not wear it. In the event, clinically she is stable and ready for discharge to follow u p with oncologist to begin therapy and staging for her adenocarcinoma of the lung.
[2017-09-10] MEDS: Lovastatin 20 MG TAB PO SCH (17:49)
[2017-09-10] MEDS: HYDROcodone/Acetaminophen 5/325 mg Tablet PO PRN (22:16)
[2017-09-10] MEDS: Melatonin 3 MG TAB PO PRN (22:16)
[2017-09-11 05:45] LABS: Anion Gap 12 mmol/L (10-20); BUN (Urea Nitrogen) 16 mg/dL (9.8-20.1); Calc. Creatinine Clearance 51 mL/min (70-130); Calcium 9.6 mg/dL (7.8-10.44); Carbon Dioxide 37 mmol/L (23-31); Chloride 81 mmol/L (98-107); Estimated GFR-MDRD 78; Glucose 106 mg/dL (80-115); Potassium 3.8 mmol/L (3.5-5.1); Sodium 126 mmol/L (136-145)
[2017-09-11] MEDS: Mometasone/Formoterol 120 PUFF INHALER INH SCH (06:38)
--- NOTE | 2017-09-11 07:59 | PDOC.FM ---
- Subjective Subjective: Patient states she is in no peterson to get home because she lives alone. She states her night was no different than any other night. She states her breathing is unchanged. She was approved for home oxygen with a [employer] organization and will be discharged on that. I had an extensive conversation with her on keeping her follow up appointments. She denies chest pain, n/v/d, abdominal pain, fevers, or chills. She does note that her gas bloating is improved today, but could still get some out. No other concerns this morning. - Objective Vital Signs & Weight: Vital Signs (12 hours) Temp Pulse Resp BP Pulse Ox 09/11/17 07:44 98.1 F 80 20 150/72 H 90 L 09/11/17 06:38 72 16 09/11/17 06:32 72 16 09/11/17 03:34 97.8 F 68 18 125/69 09/11/17 02:47 68 16 91 L 09/10/17 23:42 109 H 16 97 09/10/17 22:15 79 09/10/17 20:00 99.1 F 76 16 94 L Weight Admit Weight 46.901 kg Weight 49.668 kg I&O: 09/10/17 09/11/17 09/12/17 06:59 06:59 06:59 Intake Total 1468 Output Total 400 1 Balance 1068 -1 Result Diagrams: 09/03/17 16:03 09/11/17 04:58 Phys Exam - Physical Examination Constitutional: NAD HEENT: PERRLA, moist MMs Neck: no nodes Respiratory: no wheezing, clear to auscultation bilateral Cardiovascular: RRR, no significant murmur Gastrointestinal: soft, non-tender, no distention, positive bowel sounds Musculoskeletal: no edema Neurological: non-focal, normal sensation, moves all 4 limbs Lymphatic: no nodes Psychiatric: normal affect, A&O x 3 Skin: no rash Dx/Plan (1) PNA (pneumonia) Code(s): J18.9 - PNEUMONIA, UNSPECIFIED ORGANISM Status: Acute (2) COPD (chronic obstructive pulmonary disease) Status: Acute Qualifiers: COPD type: COPD with acute exacerbation Qualified Code(s): J44.1 - Chronic obstructive pulmonary disease with (acute) exacerbation (3) Hyponatremia Code(s): E87.1 - HYPO-OSMOLALITY AND HYPONATREMIA Status: Acute (4) Elevated brain natriuretic peptide (BNP) level Code(s): R79.89 - OTHER SPECIFIED ABNORMAL FINDINGS OF BLOOD CHEMISTRY Status : Acute (5) DM2 (diabetes mellitus, type 2) Status: Chronic Qualifiers: Diabetes mellitus complication status: with hyperglycemia Diabetes mellitus long term care phlebotomist insulin use: unspecified long term care phlebotomist insulin use status Qualified Code(s): E11.65 - Type 2 diabetes mellitus with hyperglycemia (6) HTN (hypertension) Code(s): I10 - ESSENTIAL (PRIMARY) HYPERTENSION Status: Chronic Qualifiers: Hypertension type: essential hypertension Qualified Code(s): I10 - Essential (primary) hypertension (7) HLD (hyperlipidemia) Code(s): E78.5 - HYPERLIPIDEMIA, UNSPECIFIED Status: Chronic Qualifiers: Hyperlipidemia type: unspecified Qualified Code(s): E78.5 - Hyperlipidemia , unspecified (8) Peripheral vascular disease Code(s): I73.9 - PERIPHERAL VASCULAR DISEASE, UNSPECIFIED Status: Chronic (9) Lung mass Code(s): R91.8 - OTHER NONSPECIFIC ABNORMAL FINDING OF LUNG FIELD Status: Acute (10) Cavitating mass of lung Code(s): J98.4 - OTHER DISORDERS OF LUNG Status: Chronic (11) History of tuberculosis Code(s): Z86.11 - PERSONAL HISTORY OF TUBERCULOSIS Status: Chronic (12) Adenocarcinoma of lung Code(s): C34.90 - MALIGNANT NEOPLASM OF UNSP PART OF UNSP BRONCHUS OR LUNG Status: Acute - Plan Plan: 1. Recurrent Pneumonia with Cavitary lesions - Appreciate Dr. French's and Dr. Hebert's recs - Per Patient past hx of TB, per Pulmonary isolation can be discontinued - No acid fast bacilli on sputum culture - Finished course of IV abx - Procalcitonin neg - Cultures negative - Legionella and Strep antigens negative - VSS 2. COPD - Continue home meds - Duonebs - Supplemental Oxygen as needed, Home oxygen approved. - PO steroids 3. Lung mass - CT guided biopsy 09/07 - Adenocarcinoma of lung - Will defer to Pulmonology recs 4. Hx of TB - Pulmonology doesn't believe active TB; sputum culture neg - AFB negative 5. Elevated BNP - ECHO showed EF 60-65% - Diastolic dysfunction, Mild Mitral regurgitation, and severe tricuspid regurgitation - Patient currently asymptomatic, will monitor 6. DM2 - Not currently medicated - HgbA1C 5.5 - Accuchecks and SSI 7. HTN - Lisinopril/HCTZ - Monitor BP - Hydralazine as needed 8. HLD - Continue statin 9. PVD - s/p stent placement in legs and renal arteries 10. 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 Elevated bicarb - Could be due to contraction alkalosis - Continue to monitor 12. Adenocarcinoma of lung - Biopsy results - Will set up for outpatient Oncologist visit Disposition: Stable, Can be discharged home today with outpatient follow up.
[2017-09-11] MEDS: Carvedilol 25 MG TAB PO SCH (08:26)
[2017-09-11] MEDS: Polyethylene Glycol 3350 17 GM Packet PO SCH (08:26)
[2017-09-11] MEDS: Lisinopril/Hydrochlorothiazide 20 mg/12.5 mg Tablet PO SCH (08:26)
[2017-09-11] MEDS: predniSONE 20 MG TAB PO SCH (08:26)
[2017-09-11] MEDS: hydrALAZINE 25 MG TAB PO SCH (08:26)
[2017-09-11 12:38] VITALS: BP 151/81; TEMP 97.4
--- NOTE | 2017-09-11 12:58 | PRG ---
DATE OF SERVICE: 09/11/2017 Ms. Wilson has had no specific change in her clinical status. She did qualify for oxygen and this is being arranged for home delivery. She will be discharged today after these arrangements are made.
--- NOTE | 2017-09-11 20:25 | DIS-2 ---
DATE OF ADMISSION: 08/31/2017 DATE OF DISCHARGE: 09/11/2017 RESIDENT: Dr. Carrasco. ADMITTING ATTENDING: Dr. Meek. DISCHARGE ATTENDING: Dr. Duncan. CONSULTS: With Pulmonology and Dr. Hebert, also [facility] and with case management. PROCEDURES PERFORMED: The patient underwent an echocardiogram on 09/02/2017 that showed an ejection fraction visually estimated at 60% to 65%. E/A flow reversal noted suggestive of diastolic dysfunction. The left atrium is mildly dilated. Mild mitral regurgitation is present and severe tricuspid regurgitation. The patient also underwent a chest x-ray on 09/07/2017 that showed no evidence of pneumothorax, stable parenchymal opacity, which demonstrated mass-like appearance of the right lower lobe and right mid lung zones, small bilateral pleural effusions, chronic lung changes and evidence of chronic obstructive pulmonary disease. The patient also underwent a CT-guided biopsy on 09/07/2017 that showed a right lower lobe mass. Technically successful CT-guided percutaneous biopsy of the right lower lobe mass. Pathology is currently pending. Post-biopsy imaging does not demonstrate evidence of pneumothorax or findings to suggest hematoma. PRIMARY DIAGNOSES: 1. Adenocarcinoma of the lung. 2. Pneumonia. 3. Chronic obstructive pulmonary disease. 4. Hyponatremia. 5. Elevated BNP. 6. Diabetes mellitus type 2. 7. Hypertension. 8. Hyperlipidemia. SECONDARY DIAGNOSES: Peripheral vascular disease and history of tuberculosis. DISCHARGE MEDICATIONS: 1. Lovastatin 20 mg p.o. q.p.m. 2. Hydralazine 50 mg p.o. t.i.d. 3. Carvedilol 25 mg b.i.d. 4. Symbicort 160/4.5 mg 1 puff inhaled b.i.d. 5. Aspirin 81 mg p.o. daily. 6. Lisinopril/HCTZ 20/12.5 mg 2 tabs p.o. daily. 7. Proventil HFA 2 puffs inhaled q.6 hours p.r.n. 8. Robitussin DM 15 mL p.o. q.4 hours. 9. Prednisone 20 mg p.o. q.a.m. DISCONTINUED MEDICATIONS: Hydralazine 12.5 mg b.i.d. HISTORY OF PRESENT ILLNESS AND HOSPITAL COURSE: This patient is a 66-year-old -[place] female that comes in with a chief complaint of cough. She states that the cough has been present for roughly 11 months and she has been having shortness of breath over the last year or two. She says that the cough has been recurrent over this last year and she has been coughing up pink colored sputum. She denies any fevers or chills. She denies any night sweats. She does deny any weight loss, but she does admit that she has lost about 15 pounds over the last 5 years without trying. The patient also was seen in 2016, was found to have some sort of lung mass, but it was not worked up at that time and she did not follow up for that. The patient also reported a past history of TB infection while she was a child and she was treated for this and it was resolved in her childhood. During this hospitalization, the patient was put on TB precautions initially to ensure that she would not be a contagious to other individuals in the hospital. She had a notable lab values of white blood cell count that ranged from 11.4 up to 19.5. She had a hemoglobin that ranged from 12.4-14.0. The patient had a notable sodium levels that ranged from 122 to as high as 128 when she was at 126 on day of discharge. The patient also had bicarbonate levels that ranged from 29 to as high as 37 and chloride levels that ranged from 89 down to 79. The patient also had glucose levels that ranged from 57 up to 194 during this hospitalization. There was some concern for cavitary lesion on chest x-ray and Dr. Hebert with Pulmonology was consulted to get his perspective on this case. Dr. Hebert stated that she was very unlikely that it was a TB and with negative sputum cultures for acid-fast bacilli. It was at that time determined that the TB precautions could be removed. The patient has a long history of noncompliance and being a poor historian, so we opted at that time to keep this patient in the hospital until we could get a biopsy of the mass of the lung to determine what it is, to hopefully be able to coordinate care for her as an outpatient. The patient was put on antibiotics for over 1 week as well as steroids and DuoNebs to help her COPD exacerbation. She did have extensive relief of symptoms with her DuoNebs, steroids and antibiotics. The hope was to have her discharged on that regimen; however, she was unfunded and was not going to be able to have the funds to be able to afford these medications. The patient also underwent urine studies because of her hyponatremia and the urine studies pointed with a urine osmolality of 384 and a urine sodium of 96, which points to either a hypovolemic hyponatremia or euvolemic SIADH syndrome. We tested the patient with 500 mL of normal saline to determine if she was hypovolemic at that point; however, she did not respond with the fluids and actually responded better with a fluid restriction and so that further points to the SIADH picture of her hyponatremia. The patient remained asymptomatic because of her sodium at all times and had no further complications on that. The patient constantly complained of not being able to have deep enough breath to cough anything up that would help her and she also had trouble with her blood pressure during this hospitalization that ranged as high as 180s over 90s. The patient's blood pressure regimen was increased and with better control after that. The patient had counseled extensively on her lung disease and want to look for return precautions as far as recurrent pneumonias or night sweats, fevers, chills, not being able to tolerate anything p.o. or extensive shortness of breath. The patient otherwise had no further complications during this hospitalization and was discharged on appropriate condition. The [facility] was able to set up this patient with home oxygen for free in the time being as she is unfunded and that would greatly help her on going home. The patient did state several times that she was not willing to wear the oxygen long-term as she thought it would limit her too much from her independent standpoint. DISPOSITION: Guarded. DISCHARGE INSTRUCTIONS: 1. Location: She will be discharged home in the care of herself. 2. Diet: Will be a diabetic heart healthy diet with a fluid restriction of 1500 mL. 3. Activity: Will be with cardiopulmonary limitations. 4. Followup: Will be with her primary care provider, Dr. Kirkpatrick in 3 days [address] Dr. Attila Levine with Oncology in 2-[address] Joey Hebert in 14 days and discuss further treatment and options for her adenocarcinoma of her lung. [facility]
== END 2017-09-11 13:23 | disposition home or self-care (01) | DRG 180 ==
LOC: ERS 20:27 → 2NO 21:00 → ONC 09-09
PROVIDERS: ADMIT Emergency Medicine; ATTEND Emergency Medicine
PROC: 0BBF3ZX Excision of Right Lower Lung Lobe, Percutaneous Approach, Diagnostic (ICD-10-PCS; principal; 2017-09-07)
DX: C34.31 Malignant neoplasm of lower lobe, right bronchus or lung (principal); J18.9 Pneumonia, unspecified organism; E87.3 Alkalosis; E22.2 Syndrome of inappropriate secretion of antidiuretic hormone; J44.0 Chronic obstructive pulmonary disease with (acute) lower respiratory infection; J44.1 Chronic obstructive pulmonary disease with (acute) exacerbation; I10 Essential (primary) hypertension; E87.6 Hypokalemia; F17.210 Nicotine dependence, cigarettes, uncomplicated; Z86.11 Personal history of tuberculosis; E78.5 Hyperlipidemia, unspecified; I73.9 Peripheral vascular disease, unspecified; Z91.19 Patient's noncompliance with other medical treatment and regimen; R79.89 Other specified abnormal findings of blood chemistry; E11.65 Type 2 diabetes mellitus with hyperglycemia; I08.1 Rheumatic disorders of both mitral and tricuspid valves
CPT/HCPCS: 32405; 36415; 36416; 71045; 77012; 80048; 80053; 82274; 83036; 83930; 83935; 84145; 84300; 84484; 85025; 85610; 85730; 87040; 87116; 87206; 87899; 88305; 88312; 88313; 88341; 88342; 89220; 93306; 94640; 94664; A4216; G8978-GP-CJ; G8979-GP-CJ; G8980-GP-CJ; J0360; J0456; J0696; J1650; J2250; J2765; J2920; J3010; J3480; J7050; J7120; J7506; J7620

== ENCOUNTER 2017-09-24 07:07 | Inpatient (IN) | payer OTHER, SELFPAY ==
[2017-09-24 08:02] LABS: Band 15 % (5-11); Eosinophils 12 % (0-10); Hemoglobin 13.4 g/dL (12.0-16.0); Lymphocytes 17 % (21-51); MDiff Complete? YES; Mean Corpuscular HGB CONC 31.4 g/dL (32.0-36.0); Mean Corpuscular Hemoglobin 28.7 pg (27.0-31.0); Mean Corpuscular Volume 91.6 fl (81.0-99.0); Mean Platelet Volume 8.3 fL (7.4-10.4); Monocytes 6 % (0-10); Neutrophil 49 % (42-75); PLT Morphology Comment Appears Adequate; Platelet Count 244 thou/uL (130-400); Polychromasia SLIGHT = 2-3 cells (100X) (0-2/hpf); RBC Distribution Width 14.4 % (11.5-14.5); Red Blood Cell (RBC) Count 4.67 mill/uL (4.20-5.40); Target Cells SLIGHT = 2-5 cells (100X) (0-1/hpf); White Blood Cell (WBC) Count 14.3 thou/uL (4.8-10.8)
[2017-09-24 08:09] LABS: ALT (SGPT) 10 U/L (8-55); AST (SGOT) 14 U/L (5-34); Albumin 2.8 g/dL (3.4-4.8); Alkaline Phosphatase 72 U/L (40-150); Anion Gap 18 mmol/L (10-20); BUN (Urea Nitrogen) 26 mg/dL (9.8-20.1); Bilirubin, Total 1.4 mg/dL (0.2-1.2); Calc. Creatinine Clearance 0 mL/min (70-130); Calcium 8.9 mg/dL (7.8-10.44); Carbon Dioxide 28 mmol/L (23-31); Chloride 79 mmol/L (98-107); Estimated GFR-MDRD 84; Globulin 3.4 g/dL (2.4-3.5); Glucose 81 mg/dL (80-115); Potassium 3.9 mmol/L (3.5-5.1); Protein, Total 6.2 g/dL (6.0-8.3); Sodium 121 mmol/L (136-145)
--- NOTE | 2017-09-24 08:25 | RAD ---
RADIOGRAPH CHEST 1 VIEW: Date: 09/24/17. Time: 8:00 a.m. HISTORY: A 66-year-old female with dyspnea. COMPARISON: 08/31/17 and 09/07/17. FINDINGS: Again noted are the severe diffuse reticulonodular interstitial infiltrates bilaterally. Superimpose d upon this, there are additional airspace densities, including consolidation in the lateral aspect o f the right upper lobe, unchanged; a right lower lobe large pulmonary mass, which was biopsied, uncha nged; new area of consolidation of the base of the right lung silhouetting the right hemidiaphragm, c onsistent with acute pneumonia; and another new area of consolidation in the left lower lobe laterall y, also consistent with pneumonia. This last-mentioned item is either the same cavitary lesion foun d on 08/31/[address] that has now grown, or a new acute pneumonia superimposed on that. No pneumotho rax. IMPRESSION: 1. Evidence for bilateral lower lobe acute pneumonia. 2. Right lower lobe large pulmonary mass which could be lung cancer. 3. Severe emphysema. 4. Right upper lobe consolidation, probably pneumonia, is similar to the prior study. JN [] POS: CET
[2017-09-24] MEDS ORDERED: Levofloxacin 500 mg/D5W 100 ml Premix Bag ONE (09:31)
[2017-09-24] MEDS ORDERED: Ondansetron HCl/PF 4 MG/2 ML Vial IVP PRN (12:19)
[2017-09-24] MEDS ORDERED: Ondansetron ODT 4 MG TAB PO PRN (12:19)
[2017-09-24] MEDS ORDERED: Sodium Chloride 0.9% 1,000 ML IV SCH (12:30)
[2017-09-24] MEDS ORDERED: Enoxaparin Sodium 30 MG/0.3 ML SYRINGE SC SCH (13:00)
[2017-09-24] MEDS ORDERED: Iopamidol 370 76% 100 ML VIAL ONE (13:27)
[2017-09-24] MEDS ORDERED: methylPREDNISolone Sod Succ/PF 125 MG/2 ML VIAL IVP SCH (14:55)
[2017-09-24] MEDS ORDERED: Non-Formulary Item 1 EACH (Lovastatin [Lovastatin] 20 MG) PO SCH (17:00)
--- NOTE | 2017-09-24 17:19 | CT ---
CT ANGIOGRAM THORAX WITH IV CONTRAST AND 3D RECONSTRUCTIONS: 09/24/17 HISTORY: Lung cancer. Shortness of breath. COMPARISON: 08/31/17. FINDINGS: No filling defects are seen in the pulmonary arteries to suggest a pulmonary embolus. Vascular calcifications seen in the coronary arteries and involving the thoracic aorta. Thoracic aort a is normal in caliber without evidence of an aortic dissection. Atherosclerotic plaque is present in the thoracic aorta. Again noted are emphysematous changes seen throughout the lungs. Multifocal dense areas of consolidation are again seen throughout the lung parenchyma bilaterally, gr eatest involving the right upper lobe but larger area also involving the right lower lobe. There is s cattered areas of cavitation within some of the multifocal parenchymal abnormalities which were also present on prior exam. Given differences in slice selection, the findings are not significantly song ed when compared to the prior exam. There are very small bilateral pleural effusions present. The heart is mildly enlarged. No lytic or sclerotic osseous lesions are appreciated. There is a mass-like density in the subcarinal location which was also present on the prior study. Th is mass-like density may represent an enlarged lymph node with esophagus likely in this region as wel l which is partially collapsed. Areas of lymphadenopathy in the right paratracheal region and to a le sser extent in each hilar region is present. IMPRESSION: 1. No CT evidence of pulmonary embolus. 2. Atherosclerotic vascular calcifications and mild cardiomegaly. 3. Extensive multifocal areas of consolidation bilaterally with scattered areas of cavitation. F indings have not significantly changed when compared to the study on 08/31/17. This could be related t o either chronic infectious process or secondary to malignancy. Atypical infection versus cavitary ma lignancy is a possibility. 4. Extensive COPD. 5. Mediastinal and hilar lymphadenopathy which again may be reactive in origin or neoplastic. POS: OFF
[2017-09-24] MEDS: Mometasone/Formoterol 120 PUFF INHALER INH SCH (18:21)
--- NOTE | 2017-09-24 19:49 | PDOC.EVN ---
Event Note - Event Note Event Note: Patient seen and examined. Case discussed with Dr. Willett and Parth and their H &Ps reviewed and repeated by me. Agree with A/P as documented Ms Wilson is a 66 y/o BM with PMH of COPD, tobacco abuse who was admitted in August and diagnosed with adenocarcinoma of the lung (RLL) and post obstructive pneumonia. She completed her abx course and was sent home on 4L O2 to keep her sats above 90%. She returns today because she was having worsening shortness of breath. She denies fever, chills, worsening cough, n/v/d, leg pain or swelling. She is complaining of belching and reflux. In the ER was sating 85-88% on 2L NC and was placed on a ventimask and this improved her sats to 95-97%. VS reviewed Gen: A&O x 3, resp facemask on CV: normal s1/s2 Lungs: poor air movement, crackles B bases, moderate end exp wheeze Abd: soft nt Ext 1+ edema to feet and mid shins, neg Homans Labs and imaging reviewed 1) Acute on chronic hypoxic resp failure- presumed secondary to COPD exacerbation. Duonebs, IV steroids, O2 to keep sats >90%. At this time I see no sign of worsening lung infections (pt afebrile, WBC improved from discharge, no increasing sputum production and stable imaging). However, will give Levaquin and Vanc for 48 hours until neg cx. Will get CT chest to r/o PE and malignancy increases risk of this. 2) Adenocarcinoma of the lung- has initial appointment with onc next week. I had a long discussion with patient about code status and she and her daughter were going to discuss and decide their wishes soon. 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 Fluid restrict.
[2017-09-24] MEDS ORDERED: Cefepime 1 GM in Sodium Chloride 0.9% 100 ML IVPB SCH (21:00)
[2017-09-24] MEDS ORDERED: Furosemide 40 MG/4 ML VIAL SLOW IVP SCH (21:00)
[2017-09-24] MEDS ORDERED: Cefepime 1 GM, Admixture Fee 1 EACH in Sterile Water 10 ML SLOW IVP SCH (21:00)
[2017-09-24] MEDS ORDERED: Non-Formulary Item 1 EACH (Budesonide-Formoterol [Symbicort 160-4.5] 1 PUFF) INH SCH (21:00)
[2017-09-24] MEDS: Vancomycin HCl 1 GM in Premix Bag 1 BAG IVPB SCH (21:23)
[2017-09-24] MEDS: Simvastatin 5 MG TAB PO SCH (21:25)
[2017-09-24] MEDS: Carvedilol 25 MG TAB PO SCH (21:28)
[2017-09-24 23:32] LABS: HIV (1/2) Antibody/Antigen Non-Reactive (NonReactive); HIV 1/2 INDEX 0.26 S/CO (<1.00)
--- NOTE | 2017-09-25 00:09 | CON ---
DATE OF SERVICE: 09/24/2017 SERVICE: Pulmonary Medicine. REASON FOR CONSULTATION: Hypoxic respiratory failure. HISTORY OF PRESENT ILLNESS: The patient is a 66-year-old -[place] female with past medical history significant for recent diagnosis of adenocarcinoma of the lung. She was in her usual state of health when she started having increasing shortness of breath and difficulty breathing over a period of couple of weeks. She presented back to the Emergency Department and she was just here a month ago. She was taken off her nasal cannula and put her on Ventimask. With this, she had almost immediate improvement in symptoms. She currently denies any fevers, chills, nausea, vomiting. She is having some difficulty with swallowing. She did not have any pain, but occasionally food will get hung up in the throat. This has been progressively getting worse over a period of about 2 weeks. The patient specifically denies having any symptoms consistent with an upper respiratory tract infection. She does have some hemoptysis and green sputum production. This has been longstanding and perhaps a little bit worse here recently. Outside of that, however, she has not had any fevers, chills, myalgia, malaise, or infectious syndrome. She has not been exposed to anybody, who has been sick here recently. PAST MEDICAL HISTORY: 1. Peripheral vascular disease, severe. 2. Dyslipidemia. 3. Hypertension. 4. Chronic obstructive pulmonary disease. 5. Tobacco abuse. 6. History of tuberculosis. 7. Adenocarcinoma, primary unknown. PAST SURGICAL HISTORY: Stents in the bilateral legs and kidneys. FAMILY HISTORY: Noncontributory. SOCIAL HISTORY: Up until recently, she smoked over a pack a day. She uses alcohol from time to time. She denies history of illicit drug use. She has no exposure to chemicals, dust, asbestos, or tuberculosis. ALLERGIES: PENICILLIN. MEDICATIONS: List for inpatient medications were reviewed. A couple of small updates were made including discontinuing her IV fluids and give her a dose of Lasix. REVIEW OF SYSTEMS: General, head, ears, eyes, nose, throat, cardiovascular, respiratory, GI, , musculoskeletal, neurologic, and skin is negative except as mentioned in the HPI. PHYSICAL EXAMINATION: VITAL SIGNS: Afebrile, pulse 74, blood pressure 145/70, respirations 16, saturation 98% on 50% Ventimask. HEENT: Normocephalic, atraumatic. Sclerae are white, conjunctivae pink. Oral mucosa is moist without lesions. LUNGS: Decreased air entry. There is a prolonged expiratory phase, but extensive crackles are present throughout bilateral lung boucher. HEART: Normal rate, regular. ABDOMEN: Soft, nontender, nondistended, bowel sounds positive. MUSCULOSKELETAL: No cyanosis. Extensive clubbing of all the fingers are present. There is 1-2+ pitting in the bilateral lower extremities. GENITOURINARY: No Moser. NEUROLOGIC: Grossly nonfocal. LABORATORY DATA: WBC 14.3, hemoglobin 13.4, platelets 244,000. Band count is 15%. INR 1.0. Sodium 121 and below her baseline of 126. Chloride 79. Basic metabolic profile is otherwise unremarkable. Creatinine 0.83. Total bilirubin 1.4. BNP 768. Recent strep and legionella urine antigens are unremarkable. Sputum for acid-fast bacilli were previously negative on three separate occasions. Cultures are negative to date. Recent blood cultures were negative. IMAGING: CT of the chest with contrast demonstrates no evidence of pulmonary embolism. There was an extensive emphysematous changes. There are also findings consistent with overt volume overload including bilateral pleural effusions and interstitial fullness that goes out to the periphery of the lung. In addition to this, she has overt areas of consolidation. In the right upper lobe, there is air bronchograms. Lastly, there is a pulmonary mass in the right lower lobe. Cavitary lesions are also present and scattered about bilateral lung boucher. At least many of these things are actually chronic in nature. ASSESSMENT: 1. Adenocarcinoma, primary unknown. 2. Acute on chronic hypoxic respiratory failure. 3. Chronic obstructive pulmonary disease with acute exacerbation. 4. Acute on chronic diastolic heart failure. 5. Oropharyngeal dysphagia. DISCUSSION AND PLAN: I am going to discontinue the IV fluids and give the patient a couple doses of Lasix. GI consultation will be performed as the area that has being highlighted has lymphadenopathy on the CT scan includes the esophagus. She is also having multiple symptoms that have been progressive over the past 2-3 weeks of increasing dysphagia. As such, I think it would be reasonable for the patient to have a conversation with a GI doctor. Dr. Hebert will assume care in the morning. 70 minutes have been devoted to this patient in various activities. I personally reviewed all imaging studies and laboratory data noted within this document. For at least half of this time, I was interacting with the patient at the bedside or coordinating care with the care team. For the remainder of the time I was immediately available to the patient in the hospital unit. DIANA
[2017-09-25 05:42] LABS: Anion Gap 14 mmol/L (10-20); BUN (Urea Nitrogen) 24 mg/dL (9.8-20.1); Calc. Creatinine Clearance 50 mL/min (70-130); Calcium 8.5 mg/dL (7.8-10.44); Carbon Dioxide 33 mmol/L (23-31); Chloride 80 mmol/L (98-107); Estimated GFR-MDRD 87; Glucose 136 mg/dL (80-115); Magnesium 1.3 mg/dL (1.6-2.6); Phosphorus 3.3 mg/dL (2.3-4.7); Potassium 3.5 mmol/L (3.5-5.1); Sodium 123 mmol/L (136-145)
[2017-09-25 05:59] LABS: Band 12 % (5-11); Hemoglobin 11.2 g/dL (12.0-16.0); Lymphocytes 7 % (21-51); MDiff Complete? YES; Mean Corpuscular HGB CONC 31.8 g/dL (32.0-36.0); Mean Corpuscular Hemoglobin 28.9 pg (27.0-31.0); Mean Corpuscular Volume 91.1 fl (81.0-99.0); Mean Platelet Volume 8.3 fL (7.4-10.4); Monocytes 4 % (0-10); Neutrophil 76 % (42-75); Platelet Count 227 thou/uL (130-400); RBC Distribution Width 14.2 % (11.5-14.5); Red Blood Cell (RBC) Count 3.88 mill/uL (4.20-5.40); White Blood Cell (WBC) Count 15.5 thou/uL (4.8-10.8)
[2017-09-25 06:00] LABS: Hypochromia SLIGHT = 6-15 cells (100X) (0-5/hpf); Metamyelocyte 1 % (0-0); PLT Morphology Comment Appears Adequate
[2017-09-25] MEDS: Mometasone/Formoterol 120 PUFF INHALER INH SCH ×2 (06:21→18:17)
--- NOTE | 2017-09-25 08:56 | PDOC.FM ---
- Subjective Subjective: Patient doing much better this morning compared to admission. She has her venti mask off and is eating breakfast. No respiratory distress at this time. - Objective MAR Reviewed: Yes Vital Signs & Weight: Vital Signs (12 hours) Temp Pulse Resp BP BP BP BP 09/25/17 08:00 97.7 F 62 20 166/77 H 09/25/17 07:10 164/77 H 140/68 09/25/17 06:21 58 L 12 09/25/17 06:18 09/25/17 06:17 58 L 12 09/25/17 02:26 78 20 09/25/17 01:01 09/24/17 23:44 97.4 F L 63 16 139/65 09/24/17 22:36 76 20 Pulse Ox Pulse Ox Pulse Ox 09/25/17 08:00 96 09/25/17 07:10 95 92 L 09/25/17 06:21 09/25/17 06:18 90 L 09/25/17 06:17 09/25/17 02:26 90 L 09/25/17 01:01 91 L 09/24/17 23:44 98 09/24/17 22:36 91 L Weight Weight 45 kg I&O: 09/24/17 09/25/17 09/26/17 06:59 06:59 06:59 Intake Total 825 Balance 825 Result Diagrams: 09/25/17 04:40 09/25/17 04:40 <Vasu Alba - Last Filed: 09/25/17 08:54> - Objective Vital Signs & Weight: Vital Signs (12 hours) Temp Pulse Resp BP BP BP Pulse Ox 09/25/17 10:37 72 12 09/25/17 08:00 97.7 F 62 20 166/77 H 96 09/25/17 07:10 164/77 H 140/68 09/25/17 06:21 58 L 12 09/25/17 06:18 90 L 09/25/17 06:17 58 L 12 09/25/17 02:26 78 20 90 L 09/25/17 01:01 91 L Pulse Ox Pulse Ox 09/25/17 10:37 09/25/17 08:00 09/25/17 07:10 95 92 L 09/25/17 06:21 09/25/17 06:18 09/25/17 06:17 09/25/17 02:26 09/25/17 01:01 Weight Weight 45 kg I&O: 09/24/17 09/25/17 09/26/17 06:59 06:59 06:59 Intake Total 825 Balance 825 Result Diagrams: 09/25/17 04:40 09/25/17 04:40 <Vasyl Meek - Last Filed: 09/25/17 11:50> Phys Exam - Physical Examination Constitutional: NAD HEENT: moist MMs Neck: no JVD bilateral crackles; decreased air movement Cardiovascular: RRR, no significant murmur Gastrointestinal: soft 1+ pitting edema to mid rizo bilaterally Psychiatric: normal affect, A&O x 3 <Vasu Alba - Last Filed: 09/25/17 08:54> Dx/Plan (1) Acute on chronic respiratory failure with hypoxia Code(s): J96.21 - ACUTE AND CHRONIC RESPIRATORY FAILURE WITH HYPOXIA Status: Acute Plan: Requiring 15L via Vent mask on admission Able to take mask off and eat this morning with no respiratory distress If patient decompensates from a respiratory standpoint we will draw ABG and transfer to [facility] for BiPap CT PE negative (2) HCAP (healthcare-associated pneumonia) Code(s): J18.9 - PNEUMONIA, UNSPECIFIED ORGANISM Status: Acute Plan: Continue levaquin and vancomycin Vanc trough pending Low suspicion at this time considering stable leukocytosis and afebrile Continue until cultures are negative (3) Adenocarcinoma of lung Code(s): C34.90 - MALIGNANT NEOPLASM OF UNSP PART OF UNSP BRONCHUS OR LUNG Status: Chronic Plan: Recently diagnosed during last hospitalization Has OP appt with Oncology on 09/29 (4) Dysphagia Code(s): R13.10 - DYSPHAGIA, UNSPECIFIED Status: Acute Plan: New problem this admission GI has been consulted per Pulm (5) COPD (chronic obstructive pulmonary disease) Status: Acute QualifierTitle: COPD type: COPD with acute exacerbation Qualified Code(s) : J44.1 - Chronic obstructive pulmonary disease with (acute) exacerbation Plan: Continue duonebs scheduled and steroids maintain sats above 90% (6) Hyponatremia Code(s): E87.1 - HYPO-OSMOLALITY AND HYPONATREMIA Status: Chronic Plan: 2/2 SIADH fluid restrict (7) HLD (hyperlipidemia) Code(s): E78.5 - HYPERLIPIDEMIA, UNSPECIFIED Status: Chronic QualifierTitle: Hyperlipidemia type: unspecified Qualified Code(s): E78.5 - Hyperlipidemia, unspecified (8) HTN (hypertension) Code(s): I10 - ESSENTIAL (PRIMARY) HYPERTENSION Status: Chronic QualifierTitle: Hypertension type: essential hypertension Qualified Code( s): I10 - Essential (primary) hypertension (9) Peripheral vascular disease Code(s): I73.9 - PERIPHERAL VASCULAR DISEASE, UNSPECIFIED Status: Chronic (10) Tobacco abuse Code(s): Z72.0 - TOBACCO USE Status: Chronic - Plan Plan: Plan: -continue abx until cultures negative -duonebs, steroids, O2 support for COPD exac -pending GI recs for dysphagia <Vasu Alba - Last Filed: 09/25/17 08:54> Attending Addendum - Attending Addendum I personally evaluated the patient and discussed the management with Dr. Alba. I agree with and repeated the History, Examination, Assessment and Plan documented above with any addition or exceptions noted below. Doing much better respiratory conn than when I saw her last admission. She says her trouble swallowing is mostly because it makes her more short of breath. She has had excessive burping since her last discharge. Appreciate pulm as always. Await GI recs. Continue Abx/steroids. <Vasyl Meek - Last Filed: 09/25/17 11:50>
[2017-09-25] MEDS ORDERED: Lisinopril/Hydrochlorothiazide 20 mg/12.5 mg Tablet PO SCH (09:00)
--- NOTE | 2017-09-25 09:04 | HP-2 ---
CODE STATUS: DNR. The patient wishes for intubation if needed and medicines. PRIMARY CARE PHYSICIAN: Dr. Kirkpatrick. ATTENDING: Dr. Ashlee Roman. RESIDENT: Dr. Kandace Willett. HISTORIAN: Patient's daughter. SPECIALIST: Dr. Cunha and Dr. Hebert. CHIEF COMPLAINT: Shortness of breath and cough. HISTORY OF PRESENT ILLNESS: The patient is a 66-year-old female with past medical history of recently diagnosed adenocarcinoma of the lung and a recent hospitalization for pneumonia who presents with worsening shortness of breath. She has had difficulty getting air in since discharge from the hospital about 2 weeks ago. She came in today. She did not feel like she could tolerate much longer. She was discharged home 2 weeks ago on 4 liters O2 and now is requiring 15 L Ventimask here. She is scheduled to follow with Dr. Cunha on the of this month. The patient also has history of COPD as well as chronic bronchitis and history of tuberculosis. The patient also has history of diastolic CHF, last echo this year. In the ER, a chest x-ray was performed, which shows a possible new infiltrate as well as mildly increasing mass and chronic lung changes with emphysema. She was given DuoNeb 3 mL, Levaquin 500 mg and vancomycin 1 g. PAST MEDICAL HISTORY: 1. Adenocarcinoma diagnosed by CT guided biopsy on 09/07/2017. 2. Hyperlipidemia. 3. Peripheral vascular disease. 4. Tobacco abuse. 5. Chronic obstructive pulmonary disease. 6. Hypertension. 7. Type 2 diabetes. 8. Diastolic congestive heart failure. PAST SURGICAL HISTORY: Stents in the legs and kidneys. ALLERGIES: PENICILLIN. MEDICATIONS: 1. Lovastatin 20 mg p.o. at bedtime. 2. Carvedilol 25 mg b.i.d. 3. Symbicort 160/4.5 mg 1 puff inhaled b.i.d. 4. Aspirin 81 mg daily. 5. Lisinopril/hydrochlorothiazide 20/12.5 mg 2 tablets p.o. daily. 6. Proventil HFA 2 puffs inhaled q.6 hours p.r.n. 7. Robitussin-DM. FAMILY HISTORY: Diabetes. SOCIAL HISTORY: The patient quit smoking 1 month ago, but previously smoked greater than 1 pack a day for 50 years. Denies alcohol and drug use. REVIEW OF SYSTEMS: A 12-point review of system was performed and found to be positive for those mentioned in the HPI as well as generalized fatigue, decreased weight and appetite and generalized weakness; all other systems negative. PHYSICAL EXAMINATION: VITAL SIGNS: Blood pressure 149/89, pulse 71, respiratory rate 16, T-max 98.1, pulse ox originally 88% on 4 liters, now 97% on Venti face mask, current weight 45 kilograms. GENERAL: The patient is alert and orientated x3, in no acute distress, well- developed, thin, mildly cachectic. EYES: PERRLA, EOMI. ENT: Oral thrush on hard palate. Dentures in place. NECK: Supple. CARDIOVASCULAR: Regular rate and rhythm, 3/6 systolic murmur. Radial pulses 2+ . Pedal pulse 2+. RESPIRATORY: Mildly increased effort with crackles at the bases and decreased breath sounds in the right upper lobe. ABDOMEN: Soft, nontender. EXTREMITIES: The patient with significant clubbing of the upper extremities and bilateral edema to the knees, 1+ pitting. NEUROLOGIC: No focal deficits. GCS 15. PSYCHIATRIC: Appropriate. LABORATORY DATA: White blood cell count 14.3, hemoglobin 13.4, hematocrit 42.8 , platelets 344, 15% bands. CMP: Sodium 121, potassium 3.9, chloride 79, CO2 of 21, BUN 26, creatinine 0.83 , glucose 81, GFR 84, calcium 8.9, total protein 6.2, albumin 2.8. AST 14, ALT 10, alkaline phosphatase 72. BNP 768. Chest x-ray, bilateral lower lobes, acute pneumonia with right lower lobe large pulmonary mass consistent with adenocarcinoma, severe emphysema and right upper lobe consolidation. ASSESSMENT AND PLAN: 1. Acute on chronic hypoxic respiratory failure secondary to some hospital- acquired pneumonia versus chronic obstructive pulmonary disease exacerbation. Will admit to Oncology as inpatient. The patient was hospitalized 2 weeks ago for community-acquired pneumonia and found to have lung mass, which was consistent with adenocarcinoma on biopsy. Poor prognosis. We will continue with vancomycin and Levaquin for treatment of hospital-acquired pneumonia, although suspicion for COPD exacerbation is probably higher on differential. We will provide DuoNebs q.4 hours p.r.n. Started on prednisone 40 mg daily. Give O2 as needed to keep oxygen sats greater than 88%. Consider PE with increased risk due to cancer and lower extremity swelling. We will get the CTA to rule this out. Also considering congestive heart failure although not likely this is complete cause of her acute respiratory failure, but could be component. BNP elevated at 768, which is only mildly elevated from last admission, although the patient does have pitting edema and shortness of breath. Consider trial dose of Lasix. Will monitor closely and have low threshold for transferring to IMCU or ICU for respiratory distress as patient has no lung reserve with multiple lung diseases. 2. Adenocarcinoma of the lung. The patient is to see Dr. Cunha in office on the , then consider consulting him outpatient in the hospital. Poor prognosis. The patient remained DNR today with family agreement. 3. Hyponatremia, chronic. This is likely secondary to lung carcinoma and SIADH. Sodium at 121, which is stable for her from last admission. 4. Hypochloremia. Again, this is chronic and stable from prior readings. Likely associated with adenocarcinoma. 5. Chronic obstructive pulmonary disease. Continue home medications. 6. Diabetes. We will do Accu-Chek and sliding scale insulin. 7. Hypertension. We will continue home medications. 8. Hyperlipidemia. We will continue home medications. 9. Deep venous thrombosis prophylaxis, Lovenox. DISPOSITION AND LENGTH OF HOSPITAL STAY: Two to three days. Symptomatic medications will be provided. History and physical exam as well as management was discussed with Dr. Ashlee Roman. DIANA
[2017-09-25] MEDS: Furosemide 40 MG/4 ML VIAL SLOW IVP SCH (09:30)
[2017-09-25] MEDS: Aspirin 81 mg Enteric Coated Tablet PO SCH (09:31)
[2017-09-25] MEDS: Carvedilol 25 MG TAB PO SCH ×2 (09:31→21:03)
[2017-09-25] MEDS: Magnesium Chloride 64 MG TAB PO SCH ×2 (09:31→21:03)
[2017-09-25] MEDS: predniSONE 20 MG TAB PO SCH (09:31)
[2017-09-25] MEDS: Vancomycin HCl 1 GM in Premix Bag 1 BAG IVPB SCH ×2 (09:32→20:53)
[2017-09-25] MEDS: Enoxaparin Sodium 30 MG/0.3 ML SYRINGE SC SCH (09:38)
[2017-09-25 20:31] LABS: Vancomycin, Trough 27.3 ug/mL
[2017-09-25] MEDS: Simvastatin 5 MG TAB PO SCH (21:03)
[2017-09-25] MEDS ORDERED: Polyethylene Glycol 3350 17 GM Packet PO PRN (23:13)
[2017-09-25] MEDS ORDERED: Milk Of Magnesia 30 ML UDCUP PO PRN (23:13)
[2017-09-25] MEDS ORDERED: Docusate 100 MG CAP PO PRN (23:13)
[2017-09-25] MEDS ORDERED: Melatonin 3 MG TAB PO PRN (23:53)
[2017-09-26] MEDS: Simethicone Chewable 80 MG TAB PO PRN ×2 (02:24→20:17)
[2017-09-26] MEDS: Acetaminophen 325 MG TAB PO PRN ×2 (02:24→08:41)
[2017-09-26 05:58] LABS: Magnesium 1.4 mg/dL (1.6-2.6); Phosphorus 2.2 mg/dL (2.3-4.7)
[2017-09-26 06:27] LABS: Anion Gap 16 mmol/L (10-20); BUN (Urea Nitrogen) 21 mg/dL (9.8-20.1); Calc. Creatinine Clearance 49 mL/min (70-130); Carbon Dioxide 37 mmol/L (23-31); Chloride 80 mmol/L (98-107); Estimated GFR-MDRD 84; Glucose 106 mg/dL (80-115); Potassium 3.1 mmol/L (3.5-5.1); Sodium 130 mmol/L (136-145)
[2017-09-26] MEDS: Mometasone/Formoterol 120 PUFF INHALER INH SCH ×2 (06:38→18:32)
[2017-09-26 06:41] LABS: Band 11 % (5-11); Eosinophils 1 % (0-10); Hemoglobin 11.2 g/dL (12.0-16.0); Lymphocytes 11 % (21-51); MDiff Complete? YES; Mean Corpuscular HGB CONC 31.1 g/dL (32.0-36.0); Mean Platelet Volume 8.3 fL (7.4-10.4); Monocytes 1 % (0-10); Neutrophil 76 % (42-75); PLT Morphology Comment Appears Adequate; Platelet Count 234 thou/uL (130-400); RBC Distribution Width 14.2 % (11.5-14.5); Red Blood Cell (RBC) Count 3.88 mill/uL (4.20-5.40); White Blood Cell (WBC) Count 19.6 thou/uL (4.8-10.8)
--- NOTE | 2017-09-26 06:57 | PDOC.FM ---
- Subjective Subjective: Patient sitting up in bed undergoing breathing treatment this morning. She endorses minimal sleep overnight, but no acute events per nursing. Still requiring Venti mask at 15L, but is able to use it intermittently. - Objective MAR Reviewed: Yes Vital Signs & Weight: Vital Signs (12 hours) Temp Pulse Resp BP BP Pulse Ox 09/26/17 06:38 62 12 09/26/17 06:30 98 09/26/17 06:29 62 12 09/26/17 03:41 91 L 09/26/17 03:38 97.5 F L 71 16 149/68 H 100 09/26/17 02:49 82 16 91 L 09/25/17 23:45 99 09/25/17 21:49 63 16 96 09/25/17 20:00 97.4 F L 84 20 93 L 09/25/17 19:53 97.4 F L 84 20 133/70 93 L Weight Admit Weight 45 kg Weight 45.416 kg I&O: 09/24/17 09/25/17 09/26/17 06:59 06:59 06:59 Intake Total 2720 Output Total 700 Balance 2020 Result Diagrams: 09/26/17 04:01 09/26/17 04:01 <Vasu Alba - Last Filed: 09/26/17 06:55> - Objective Vital Signs & Weight: Vital Signs (12 hours) Temp Pulse Resp BP Pulse Ox 09/26/17 22:30 69 16 95 09/26/17 20:15 97.5 F L 77 18 95 09/26/17 20:13 97.5 F L 77 18 140/70 95 09/26/17 18:31 71 14 96 09/26/17 14:36 66 16 Weight Admit Weight 45 kg Weight 45.416 kg I&O: 09/25/17 09/26/17 09/27/17 06:59 06:59 06:59 Intake Total 2720 1190 Output Total 700 600 Balance 2019 590 Result Diagrams: 09/26/17 04:01 09/26/17 04:01 <Ashlee Roman - Last Filed: 09/26/17 22:48> Phys Exam - Physical Examination Constitutional: NAD HEENT: moist MMs Neck: no JVD bibasilar crackles Cardiovascular: RRR, no significant murmur Gastrointestinal: soft, non-tender Neurological: moves all 4 limbs Psychiatric: normal affect, A&O x 3 <Vasu Alba - Last Filed: 09/26/17 06:55> Dx/Plan (1) Acute on chronic respiratory failure with hypoxia Code(s): J96.21 - ACUTE AND CHRONIC RESPIRATORY FAILURE WITH HYPOXIA Status: Acute Plan: Requiring 15L via Vent mask on admission Able to take mask off and eat this morning with no respiratory distress If patient decompensates from a respiratory standpoint we will draw ABG and transfer to [facility] for BiPap CT PE negative (2) HCAP (healthcare-associated pneumonia) Code(s): J18.9 - PNEUMONIA, UNSPECIFIED ORGANISM Status: Acute Plan: Continue levaquin discontinue Vanc Low suspicion at this time considering stable leukocytosis and afebrile Cultures are negative (3) Adenocarcinoma of lung Code(s): C34.90 - MALIGNANT NEOPLASM OF UNSP PART OF UNSP BRONCHUS OR LUNG Status: Chronic Plan: Recently diagnosed during last hospitalization Has OP appt with Oncology on 09/29 Continue to follow Pulm recs (4) Dysphagia Code(s): R13.10 - DYSPHAGIA, UNSPECIFIED Status: Acute Plan: New problem this admission GI has been consulted per Pulm (5) COPD (chronic obstructive pulmonary disease) Status: Acute QualifierTitle: COPD type: COPD with acute exacerbation Qualified Code(s) : J44.1 - Chronic obstructive pulmonary disease with (acute) exacerbation Plan: Continue duonebs scheduled and steroids maintain sats above 90% (6) Hyponatremia Code(s): E87.1 - HYPO-OSMOLALITY AND HYPONATREMIA Status: Chronic Plan: 2/ SIADH fluid restrict Na improved to 130 this morning (7) HLD (hyperlipidemia) Code(s): E78.5 - HYPERLIPIDEMIA, UNSPECIFIED Status: Chronic QualifierTitle: Hyperlipidemia type: unspecified Qualified Code(s): E78.5 - Hyperlipidemia, unspecified (8) HTN (hypertension) Code(s): I10 - ESSENTIAL (PRIMARY) HYPERTENSION Status: Chronic QualifierTitle: Hypertension type: essential hypertension Qualified Code( s): I10 - Essential (primary) hypertension (9) Peripheral vascular disease Code(s): I73.9 - PERIPHERAL VASCULAR DISEASE, UNSPECIFIED Status: Chronic (10) Tobacco abuse Code(s): Z72.0 - TOBACCO USE Status: Chronic - Plan Plan: Plan: -with cultures negative, will de-escalate to COPD exacerbation treatment -continue steroids, duonebs, and levaquin -GI recs for dysphagia -respiratory management per Pulm <Vasu Alba - Last Filed: 09/26/17 06:55> Attending Addendum - Attending Addendum I personally evaluated the patient and discussed the management with Dr. Alba at 8 am. I agree with the History, Examination, Assessment and Plan documented above with any addition or exceptions noted below. Acute on chronic respiratory distress- resp effort improved on venti mask Adenocarcinoma of the lung- pending appt with oncology for plan dysphagia- appreciate GI recs <Ashlee Roman - Last Filed: 09/26/17 22:48>
--- NOTE | 2017-09-26 07:52 | CON ---
DATE OF CONSULTATION: 09/25/2017 REFERRING PHYSICIAN: Dr. Francine Kirkpatrick. REASON FOR CONSULTATION: Dysphagia. HISTORY OF PRESENT ILLNESS: Ms. Bolivar Wilson is a very fragile looking 66- year-old female with history of COPD, peripheral vascular disease, status post stent placement by Dr. Partida in the past. The patient was recently diagnosed to have carcinoma of lung by Dr. Joaquim Hebert. The patient was hospitalized because of progressive dyspnea with minimal exertion even at rest. She has been wearing ventimask, the dyspnea has markedly improved. I was asked to see the patient because of history of dysphagia. Upon questioning, the patient tells me that she had no difficulty swallowing. The food actually goes down. After she eats, she feels not able to burp and she feels some what full. Once she drinks some water, she starts belching and burping and she actually feels better. The patient denies any painful swallowing. Denies any food sticking into the esophagus. The patient has no painful swallowing. The symptoms have been really going on for several months, but recently getting worse. In fact I made her drink some water and the water went down easily and then she starts belching and say actually felt better. From the history, it does not appear that she has actually true dysphagia as it is. The patient has abdominal pain. She had been coughing and coughing up some blood stained mucus recently. She has no other relevant history. ALLERGIES: AMLODIPINE, PENICILLIN. SOCIAL HISTORY: The patient is a chronic smoker. She smokes 2 packets of cigarettes per day. She quit smoking just a few weeks ago. No history of alcohol intake. MEDICAL ILLNESSES: 1. Peripheral vascular disease, status post stent placement done by Dr. Ashvin Partida. 2. Hyperlipidemia. 3. Hypertension. 4. COPD. 5. Chronic tobacco abuse. 6. Past history of TB. 7. Recent diagnosis of adenocarcinoma. SURGERIES: Status post bilateral stent placement for peripheral vascular disease. FAMILY HISTORY: Unremarkable. MEDICATIONS: List reviewed. REVIEW OF SYSTEMS: FORENSIC MEDICAL EXAMINER: Has no history of headache, no TIA. No seizure disorder. No syncope. Respiratory system: History of cough, chronic; wheezing , shortness of breath, spitting up blood stained mucus. Cardiovascular system: No chest pain, but does complain of exertional dyspnea mostly from COPD. No chest pain, no palpitation. Gastrointestinal: Questionable history of dysphagia, but talking to the patient it does not appear that she really has difficulty swallowing. No abdominal pain, no nausea, vomiting, no hematochezia or melena. Genitourinary: Unremarkable. Musculoskeletal: Unremarkable. Neurologic: Unremarkable PHYSICAL EXAMINATION: GENERAL: A very cachectic looking female, who appears comfortable. She is mildly short of breath. VITAL SIGNS: She is afebrile. Her pulse is 74, blood pressure 140/70. HEENT: Conjunctivae clear. NECK: Supple. No adenitis or thyromegaly noted. CARDIOVASCULAR: First and second heart sounds normal. LUNGS: Poor air entry on both sides and occasional rhonchi heard. ABDOMEN: Soft and nontender. No organomegaly or masses. EXTREMITIES: Reveal no edema. LABORATORY DATA: CBC shows WBC 14,300, hemoglobin 14.4, hematocrit normal, platelet count 244,000, she had bandemia of 15%. Sodium 121, potassium is 3.5, chloride 80, bicarbonate 33, BUN is 24, creatinine 0.80, glucose 136, calcium 8.5, bilirubin 1.4, AST 14, ALT 10, alkaline phosphatase 72. BNP 764.4. CLINICAL IMPRESSION: 1. A 66-year-old female with severe chronic obstructive pulmonary disease, recent diagnosis of lung carcinoma. She had given history of dysphagia, but upon questioning the patient, she says she is actually swallowing without difficulty. After each meals, she feels a little full in the esophagus and she has to drink some water. After she burps, she actually feels better. 2. Peripheral vascular disease, status post stenting. 3. Chronic obstructive pulmonary disease. 4. Recent diagnosis of lung carcinoma. RECOMMENDATIONS: Try to observe the patient in the meantime tomorrow and decide whether she needs an endoscopy. I will make further recommendations after re-evaluation tomorrow. DAINA
[2017-09-26] MEDS: Magnesium Chloride 64 MG TAB PO SCH ×2 (08:42→20:18)
[2017-09-26] MEDS: predniSONE 20 MG TAB PO SCH (08:42)
[2017-09-26] MEDS: Furosemide 40 MG/4 ML VIAL SLOW IVP SCH (08:42)
[2017-09-26] MEDS: Potassium Chloride 20 MEQ TAB PO SCH (08:43)
[2017-09-26] MEDS: Carvedilol 25 MG TAB PO SCH ×2 (08:43→20:17)
[2017-09-26] MEDS: Enoxaparin Sodium 30 MG/0.3 ML SYRINGE SC SCH (08:43)
[2017-09-26] MEDS: Aspirin 81 mg Enteric Coated Tablet PO SCH (08:43)
--- NOTE | 2017-09-26 18:21 | PRG ---
DATE OF SERVICE: 09/26/2017 DATE OF ADMISSION: 09/26/2017 This is a 66-year-old female with recent diagnosis of adenocarcinoma, COPD, hospitalized with worseni ng dyspnea. The patient is being placed on Ventimask. Her symptoms markedly improved. She appears comfortable. She still is mildly short of breath, but is not as bad as before. She still has some d ifficulty swallowing. She says she is able to swallow, but she has to belch by drinking some fluids. No painful swallowing. PHYSICAL EXAMINATION: GENERAL: Reveals a very fragile looking female who appears comfortable, in no acute distress. VITAL SIGNS: Stable, afebrile. Pulse is 84, blood pressure is 156/74. CARDIOVASCULAR: First and second heart sounds normal. LUNGS: Poor air movement within the chest cavity. ABDOMEN: Soft and nontender. CLINICAL IMPRESSION: Dysphagia, very atypical. I did speak to Jack Steve about having EGD and agreed. I will plan for EGD tomorrow.
[2017-09-26] MEDS: Simvastatin 5 MG TAB PO SCH (20:17)
[2017-09-27 06:31] LABS: Magnesium 1.5 mg/dL (1.6-2.6)
[2017-09-27] MEDS: Mometasone/Formoterol 120 PUFF INHALER INH SCH ×2 (06:35→18:19)
[2017-09-27 06:58] LABS: BUN (Urea Nitrogen) 17 mg/dL (9.8-20.1); Calc. Creatinine Clearance 53 mL/min (70-130); Calcium 9.1 mg/dL (7.8-10.44); Estimated GFR-MDRD 87; Glucose 72 mg/dL (80-115)
[2017-09-27 07:07] LABS: Anion Gap 15 mmol/L (10-20); Carbon Dioxide 38 mmol/L (23-31); Chloride 80 mmol/L (98-107); Potassium 3.8 mmol/L (3.5-5.1); Sodium 129 mmol/L (136-145)
--- NOTE | 2017-09-27 07:55 | PDOC.FM ---
- Subjective Subjective: Patient c/o SOB overnight. She slept intermittently. She feels like she has phlegm in her throat and that is the reason for her SOB. She is agreeable to upper endoscopy today. No acute events overnight. - Objective MAR Reviewed: Yes Vital Signs & Weight: Vital Signs (12 hours) Temp Pulse Resp BP Pulse Ox 09/27/17 07:30 96.7 F L 79 20 123/66 95 09/27/17 06:38 92 L 09/27/17 06:35 72 16 09/27/17 02:46 67 16 93 L 09/27/17 00:15 93 L 09/26/17 22:30 69 16 95 09/26/17 20:15 97.5 F L 77 18 95 09/26/17 20:13 97.5 F L 77 18 140/70 95 Weight Admit Weight 45 kg Weight 47.355 kg I&O: 09/26/17 09/27/17 09/28/17 06:59 06:59 06:59 Intake Total 2720 1430 Output Total 700 1100 Balance 2019 330 Result Diagrams: 09/26/17 04:01 09/27/17 06:10 <Vasu Alba - Last Filed: 09/27/17 07:54> - Objective Vital Signs & Weight: Vital Signs (12 hours) Temp Pulse Resp BP Pulse Ox 09/27/17 08:00 96.7 F L 79 20 95 09/27/17 07:30 96.7 F L 79 20 123/66 95 09/27/17 06:38 92 L 09/27/17 06:35 72 16 09/27/17 02:46 67 16 93 L 09/27/17 00:15 93 L Weight Admit Weight 45 kg Weight 47.355 kg I&O: 09/26/17 09/27/17 09/28/17 06:59 06:59 06:59 Intake Total 2720 1430 Output Total 700 1100 Balance 2019 330 Result Diagrams: 09/26/17 04:01 09/27/17 06:10 <Edy Camilo - Last Filed: 09/27/17 11:09> Phys Exam - Physical Examination Constitutional: NAD HEENT: moist MMs Neck: no JVD mild expiratory wheezes Cardiovascular: RRR, no significant murmur Gastrointestinal: soft, non-tender Neurological: moves all 4 limbs Psychiatric: normal affect, A&O x 3 <ParthVasu Valle - Last Filed: 09/27/17 07:54> Dx/Plan (1) Acute on chronic respiratory failure with hypoxia Code(s): J96.21 - ACUTE AND CHRONIC RESPIRATORY FAILURE WITH HYPOXIA Status: Acute Plan: Requiring 15L via Vent mask on admission Able to take mask off throughout the day with no respiratory distress If patient decompensates from a respiratory standpoint we will draw ABG and transfer to IMCU for BiPap CT PE negative (2) HCAP (healthcare-associated pneumonia) Code(s): J18.9 - PNEUMONIA, UNSPECIFIED ORGANISM Status: Acute Plan: Continue levaquin discontinue Vanc Low suspicion at this time considering stable leukocytosis and afebrile Cultures are negative (3) Adenocarcinoma of lung Code(s): C34.90 - MALIGNANT NEOPLASM OF UNSP PART OF UNSP BRONCHUS OR LUNG Status: Chronic Plan: Recently diagnosed during last hospitalization Has OP appt with Oncology on 09/29 Continue to follow Pulm recs (4) Dysphagia Code(s): R13.10 - DYSPHAGIA, UNSPECIFIED Status: Acute Plan: upper endoscopy today await recommendations (5) COPD (chronic obstructive pulmonary disease) Status: Acute QualifierTitle: COPD type: COPD with acute exacerbation Qualified Code(s) : J44.1 - Chronic obstructive pulmonary disease with (acute) exacerbation Plan: Continue duonebs scheduled and steroids maintain sats above 90% (6) Hyponatremia Code(s): E87.1 - HYPO-OSMOLALITY AND HYPONATREMIA Status: Chronic Plan: 2/2 SIADH fluid restrict Na improved to 129 this morning (7) HLD (hyperlipidemia) Code(s): E78.5 - HYPERLIPIDEMIA, UNSPECIFIED Status: Chronic QualifierTitle: Hyperlipidemia type: unspecified Qualified Code(s): E78.5 - Hyperlipidemia, unspecified (8) HTN (hypertension) Code(s): I10 - ESSENTIAL (PRIMARY) HYPERTENSION Status: Chronic QualifierTitle: Hypertension type: essential hypertension Qualified Code( s): I10 - Essential (primary) hypertension (9) Peripheral vascular disease Code(s): I73.9 - PERIPHERAL VASCULAR DISEASE, UNSPECIFIED Status: Chronic (10) Tobacco abuse Code(s): Z72.0 - TOBACCO USE Status: Chronic - Plan Plan: Plan: -upper endoscopy today, will await GI recs -CM consult for venti mask at home -continue abx, steroids, duonebs <Vasu Alba - Last Filed: 09/27/17 07:54> Attending Addendum - Attending Addendum I personally evaluated the patient and discussed the management with Dr. Alba I agree with the History, Examination, Assessment and Plan documented above with any addition or exceptions noted below. Upper endoscopy this morning to evaluate dysphagia. Respiratory status slowly improving. She continues to wear Venturi mask intermittently. We will continue Levaquin, steroids, Duonebs, and follow pulmonology recommendations. Adenocarcinoma of the lung diagnosed during last hospitalization will be staged and treated further in outpatient setting. She has an appointment with Dr. Levine on 10/01. <Edy Camilo - Last Filed: 09/27/17 11:09>
[2017-09-27] MEDS ORDERED: Benzocaine 20% Spray 60 ML CAN ONE (09:51)
[2017-09-27] MEDS: predniSONE 20 MG TAB PO SCH (10:08)
[2017-09-27] MEDS: Aspirin 81 mg Enteric Coated Tablet PO SCH (10:08)
[2017-09-27] MEDS: Potassium Chloride 20 MEQ TAB PO SCH (10:08)
[2017-09-27] MEDS: Carvedilol 25 MG TAB PO SCH ×2 (10:08→20:06)
[2017-09-27] MEDS: Furosemide 40 MG/4 ML VIAL SLOW IVP SCH (10:09)
[2017-09-27] MEDS: Enoxaparin Sodium 30 MG/0.3 ML SYRINGE SC SCH (10:09)
[2017-09-27] MEDS: Magnesium Chloride 64 MG TAB PO SCH ×2 (10:09→20:06)
[2017-09-27] MEDS ORDERED: Ondansetron HCl/PF 4 MG/2 ML Vial IVP PRN (10:38)
[2017-09-27] MEDS ORDERED: PROPOFOL 200 MG/20 ML VIAL ONE (14:44)
[2017-09-27] MEDS ORDERED: Lidocaine 1% PF 5 ML VIAL ONE (14:44)
[2017-09-27] MEDS: Acetaminophen 325 MG TAB PO PRN (17:45)
--- NOTE | 2017-09-27 18:36 | OP ---
DATE OF SURGERY: 09/27/2017 PROCEDURES: 1. Esophagogastroduodenoscopy with biopsy. 2. Empiric esophageal dilation with 46-Anguillan Torres dilator. PREOPERATIVE DIAGNOSIS: Dysphagia, unable to belch. POSTOPERATIVE DIAGNOSES: 1. No esophageal pathology seen and the esophageal lumen was wide open. 2. Normal GE junction. 3. Normal fundus and cardia. 4. Gastric polyps. 5. A large ulcer with raised margins over the descending duodenum. PROCEDURE IN DETAIL: The patient was placed on left lateral position and the throat was anesthetized with Cetacaine spray and the patient was given sedation by Anesthesia Department. A Pentax video gastroscope under direct vision was passed down the oropharynx, past the gastroesophageal junction, into the stomach and subsequently into the descending duodenum. The esophageal mucosa appears completely normal. There is no esophageal stricture seen. There is extensive whitish coating from the Cetacaine spray, otherwise, the esophageal mucosa appeared normal. The GE junction, no pathology seen. Retroflexion failed to show any lesions in the fundus or cardia. The gastric body showed two small polyps that appeared benign, not biopsied. The gastric antrum, no pathology seen. The duodenal bulb, no pathology seen. The descending duodenum showed a very large ulceration with a raised polypoid appearing mucosa. This was biopsied. The stomach was decompressed and the scope removed. Because of history of dysphagia, a 46-Anguillan Torres dilator was passed down with no resistance. RECOMMENDATIONS: 1. Protonix 40 mg. 2. We will make further recommendations after the biopsy report is available. [facility]
[2017-09-27] MEDS: Simvastatin 5 MG TAB PO SCH (20:06)
[2017-09-28] MEDS: Furosemide 40 MG/4 ML VIAL SLOW IVP SCH (04:51)
--- NOTE | 2017-09-28 05:19 | PDOC.EVN ---
Event Note - Event Note Event Note: S: Was paged by nurse at approximately 0500 on 09/28 due to concerns for increased work of breathing/respiratory distress. Patient was placed on non- rebreather last night at about 9 pm. Her O2 sats throughout the night were from the mid 80s to low 90s. She slept for a few hours last night and woke up this morning and her O2 sats have consistently been in the mid 80s. She was given her morning dose of lasix and a neb treatment. Patient stated she felt she wasn' t getting any oxygen. O: Vitals Pulse- 99 O2 sat: 87% on non-rebreather RR 24 Gen: Appeared fatigued, mild distress CV: RRR no murmur Resp: Diffuse expiratory wheezes, inspiratory rhonchi, decreased air movement b/ l, tachypneic, labored, subclavicular and subdiaphragmatic retractions Ext: No pitting edema in LE A/P: Acute on Chronic Respiratory Distress, Ordered stat ABG and CXR. Transferred patient to the [facility] for BiPap. <Parish Ambrosio - Last Filed: 09/28/17 05:16> Attending Addendum - Attending Addendum I personally evaluated the patient and discussed the management with Dr. Ambrosio. I agree with the History, Examination, Assessment and Plan documented above with any addition or exceptions noted below. Patient is improved clinically and comfortable on NIPPV. <Kyle Chung - Last Filed: 09/28/17 07:15>
[2017-09-28 05:34] LABS: Actual Bicarbonate (HCO3a) 38.8 mEq/L (22-26); Base Excess (BEa) 10.1 mEq/L (0 (+/-) 2.5); O2 Tension (PaO2) 52.8 mmHg (80.0-100.0); pH, Arterial 7.33 (7.35-7.45)
[2017-09-28 05:35] LABS: Calcium, Ionized 1.1 mmol/L (1.12-1.30); Hematocrit-ABG 49.7 % (36.0-47.0); Hemoglobin (Hb) 12.2 g/dL (12.0-16.0)
[2017-09-28 05:41] LABS: Puncture Site LRA
[2017-09-28 05:57] VITALS: BP 130/72
--- NOTE | 2017-09-28 06:10 | PDOC.FM ---
- Subjective Subjective: Ms. Wilson became persistently hypoxic earlier this morning and was transferred to the [facility] for BiPAP. She is doing well since transfer and denies any pain or discomfort currently. - Objective MAR Reviewed: Yes Vital Signs & Weight: Vital Signs (12 hours) Temp Pulse Resp BP BP Pulse Ox 09/28/17 04:50 102 H 28 H 130/72 88 L 09/28/17 02:00 98 22 H 95 09/27/17 23:56 98 09/27/17 21:31 105 H 24 H 84 L 09/27/17 20:00 97.1 F L 88 18 90 L 09/27/17 19:06 97.1 F L 88 18 120/58 L 18 L 09/27/17 18:18 103 H 20 88 L Weight Admit Weight 45 kg Weight 46.9 kg Most Recent Monitor Data Heart Rate from ECG 98 NIBP 103/66 NIBP BP-Mean 80 Respiration from ECG 18 SpO2 93 I&O: 09/26/17 09/27/17 09/28/17 06:59 06:59 06:59 Intake Total 2720 1430 1150 Output Total 700 1100 200 Balance 2020 330 950 Result Diagrams: 09/28/17 07:47 09/28/17 07:47 <Inez Mcgrath - Last Filed: 09/28/17 11:49> - Objective Vital Signs & Weight: Vital Signs (12 hours) Pulse Resp BP Pulse Ox 09/28/17 10:06 94 20 95 09/28/17 10:05 102 H 21 H 96 09/28/17 06:50 94 14 95 09/28/17 06:48 94 20 94 L 09/28/17 04:50 102 H 28 H 130/72 88 L 09/28/17 02:00 98 22 H 95 Weight Admit Weight 45 kg Weight 46.9 kg Most Recent Monitor Data Heart Rate from ECG 102 NIBP 130/69 NIBP BP-Mean 79 Respiration from ECG 23 SpO2 88 I&O: 09/27/17 09/28/17 09/29/17 06:59 06:59 06:59 Intake Total 1430 1330 Output Total 1100 225 Balance 330 1105 Result Diagrams: 09/28/17 07:47 09/28/17 07:47 <Vasyl Meke - Last Filed: 09/28/17 12:28> Phys Exam - Physical Examination Constitutional: NAD appears comfortable on BiPAP BiPAP in place, EOMI diffuse rhonchi BL, decreased air entry in R lung base Cardiovascular: RRR, no significant murmur Gastrointestinal: soft, non-tender, no distention, positive bowel sounds Musculoskeletal: no edema, pulses present Neurological: non-focal Psychiatric: normal affect, A&O x 3 <McgrathInez capps - Last Filed: 09/28/17 11:49> Dx/Plan (1) Acute on chronic respiratory failure with hypoxia Code(s): J96.21 - ACUTE AND CHRONIC RESPIRATORY FAILURE WITH HYPOXIA Status: Acute (2) Dysphagia Code(s): R13.10 - DYSPHAGIA, UNSPECIFIED Status: Acute (3) HCAP (healthcare-associated pneumonia) Code(s): J18.9 - PNEUMONIA, UNSPECIFIED ORGANISM Status: Acute (4) COPD (chronic obstructive pulmonary disease) Status: Acute QualifierTitle: COPD type: COPD with acute exacerbation Qualified Code(s) : J44.1 - Chronic obstructive pulmonary disease with (acute) exacerbation (5) Adenocarcinoma of lung Code(s): C34.90 - MALIGNANT NEOPLASM OF UNSP PART OF UNSP BRONCHUS OR LUNG Status: Chronic (6) HLD (hyperlipidemia) Code(s): E78.5 - HYPERLIPIDEMIA, UNSPECIFIED Status: Chronic QualifierTitle: Hyperlipidemia type: unspecified Qualified Code(s): E78.5 - Hyperlipidemia, unspecified (7) HTN (hypertension) Code(s): I10 - ESSENTIAL (PRIMARY) HYPERTENSION Status: Chronic QualifierTitle: Hypertension type: essential hypertension Qualified Code( s): I10 - Essential (primary) hypertension (8) Hyponatremia Code(s): E87.1 - HYPO-OSMOLALITY AND HYPONATREMIA Status: Chronic (9) Peripheral vascular disease Code(s): I73.9 - PERIPHERAL VASCULAR DISEASE, UNSPECIFIED Status: Chronic (10) Tobacco abuse Code(s): Z72.0 - TOBACCO USE Status: Chronic - Plan Plan: 1. Acute on chronic respiratory failure with hypoxia - Improving on BiPAP - Appreciate Dr. Hebert's assistance - Continue to monitor closely this morning - Will transition to Vanc and Zosyn, d/c Levaquin - Steriod mgmt per Dr. Hebert 2. HCAP - Increased WBC with bandemia - Will d/c levaquin and start Vanc/Zosyn 3. Adenocarcinoma of lung - Recently diagnosed on last hospitalization - Has appointment with Dr. Levine outpatient - Appreciate Dr. Hebert's assistance - Prognosis poor, discussed with patient and her daughter Agnes and she still desires to be DNR - Will consult palliative team for assistance with ongoing discussions/ preparations 4. Dysphagia - Upper endoscopy yesterday - Duodenal ulcer noted - Await recommendations - Empiric dilation - Continue protonix 5. COPD - Continue scheduled duonebs and steroids - Goal O2 88-92% 6. 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 HLD 8. PVD 9. HTN - Borderline low this morning - Home meds held 10. Tobacco abuse PPX: Lovenox and protonix Dispo: Will hold non-critical medications as patient not tolerating PO on BiPAP at this time. Continue symptomatic medications. Discussed current situation with patient and daughter this morning and she does not desire more invasive intervention. Will consult palliative team and appreciate Dr. Hebert's assistance with long-term prognosis determination. <Inez Mcgrath - Last Filed: 09/28/17 11:49> Attending Addendum - Attending Addendum I personally evaluated the patient and discussed the management with Dr. Mcgrath. I agree with and repeated the History, Examination, Assessment and Plan documented above with any addition or exceptions noted below. Pt on Bipap, 26/02, 50%. She says she is tired, and uninterested in intubation in the future. We had a long conversation today about her current medical state , which is much worse than when I saw her Thursday, and her [facility] prognosis. She would like to speak with palliative care. Pending the discussion, she may need broader coverage. She has clinically worsening. Allergic to PNC so consider vanc + flagyl and continue levaquin. Will d/w Dr. Hebert. <Vasyl Meek - Last Filed: 09/28/17 12:28>
[2017-09-28] MEDS: Mometasone/Formoterol 120 PUFF INHALER INH SCH ×2 (06:57→18:44)
[2017-09-28 08:00] LABS: #Eosinphils 1.5 thou/uL (0.0-0.7); #Lymphocytes 1.5 thou/uL (1.20-3.40); #Monocytes 1.4 thou/uL (0.11-0.59); #Neutrophils 15.5 thou/uL (1.40-6.50); %Basophils 0.2 % (0.0-1.0); %Eosinophils 7.4 % (0.0-10.0); %Lymphocytes 7.3 % (21.0-51.0); %Monocytes 7.2 % (0.0-10.0); Hemoglobin 12.1 g/dL (12.0-16.0); Mean Corpuscular HGB CONC 30.8 g/dL (32.0-36.0); Mean Corpuscular Hemoglobin 29.1 pg (27.0-31.0); Mean Corpuscular Volume 94.8 fl (81.0-99.0); Mean Platelet Volume 8.1 fL (7.4-10.4); Platelet Count 193 thou/uL (130-400); Red Blood Cell (RBC) Count 4.14 mill/uL (4.20-5.40); White Blood Cell (WBC) Count 19.9 thou/uL (4.8-10.8)
[2017-09-28] MEDS: Potassium Chloride 20 MEQ TAB PO SCH (08:00)
[2017-09-28] MEDS: predniSONE 20 MG TAB PO SCH (08:00)
[2017-09-28 08:22] LABS: ALT (SGPT) 11 U/L (8-55); AST (SGOT) 11 U/L (5-34); Albumin 2.6 g/dL (3.4-4.8); Alkaline Phosphatase 54 U/L (40-150); BUN (Urea Nitrogen) 20 mg/dL (9.8-20.1); Bilirubin, Total 1.3 mg/dL (0.2-1.2); Calc. Creatinine Clearance 50 mL/min (70-130); Calcium 9.1 mg/dL (7.8-10.44); Carbon Dioxide Greater than 37 mmol/L (23-31); Chloride 77 mmol/L (98-107); Estimated GFR-MDRD 83; Globulin 2.8 g/dL (2.4-3.5); Glucose 93 mg/dL (80-115); Magnesium 1.4 mg/dL (1.6-2.6); Phosphorus 3.4 mg/dL (2.3-4.7); Potassium 3.9 mmol/L (3.5-5.1); Protein, Total 5.4 g/dL (6.0-8.3); Sodium 124 mmol/L (136-145)
--- NOTE | 2017-09-28 08:24 | RAD ---
CHEST 1 VIEW: HISTORY: Dyspnea. Followup. COMPARISON: 09/24/17. FINDINGS: Cardiac silhouette is magnified and partially obscured by increasing bilateral pleural fluid. Pulmon joi vasculature is engorged. Coarsened interstitial markings throughout each lung are again demonstr ated. Dense infiltrates in the right upper lobe and at each lung base are stable. Mediastinum is mi dline. No evidence of pneumothorax. IMPRESSION: Dense bilateral airspace disease is similar in appearance to the prior study. Left pleural fluid has increased. POS: [facility]
[2017-09-28] MEDS: Carvedilol 25 MG TAB PO SCH (09:00)
[2017-09-28] MEDS: Magnesium Chloride 64 MG TAB PO SCH (09:00)
[2017-09-28] MEDS: Aspirin 81 mg Enteric Coated Tablet PO SCH (09:00)
[2017-09-28 09:47] LABS: Band 27 % (5-11); Eosinophils 7 % (0-10); Lymphocytes 7 % (21-51); MDiff Complete? YES; Metamyelocyte 1 % (0-0); Monocytes 7 % (0-10); Neutrophil 51 % (42-75)
[2017-09-28] MEDS ORDERED: Sodium Chloride 0.9% 500 ML IV SCH (10:30)
[2017-09-28] MEDS: Enoxaparin Sodium 30 MG/0.3 ML SYRINGE SC SCH (11:31)
[2017-09-28] MEDS: Sodium Chloride 0.9% 1,000 ML IV SCH (11:32)
[2017-09-28] MEDS ORDERED: CCU Electrolyte Replacement 1 EACH FS ONE (11:55)
[2017-09-28] MEDS ORDERED: Potassium Phosphate 15 MMOL in Sodium Chloride 0.9% 250 ML 250 ML IV PRN (12:01)
[2017-09-28] MEDS ORDERED: Potassium Chloride 40 MEQ in Premix Bag 1 BAG IVPB PRN (12:01)
[2017-09-28] MEDS ORDERED: Magnesium Oxide 400 MG TAB PO PRN ×2 (12:01)
[2017-09-28] MEDS ORDERED: Potassium Chloride 40 MEQ in Sodium Chloride 0.9% 250 ML 250 ML IVPB PRN (12:01)
[2017-09-28] MEDS ORDERED: Potassium Phosphate 12 MMOL in Sodium Chloride 0.9% 250 ML 250 ML IV PRN (12:01)
[2017-09-28] MEDS ORDERED: Magnesium 2 GM/NS 0.9% 100 ML 2 GM in Premix Bag 1 BAG IVPB PRN (12:01)
[2017-09-28] MEDS ORDERED: Potassium Phosphate 9 MMOL in Sodium Chloride 0.9% 100 ML IVPB PRN (12:01)
[2017-09-28] MEDS ORDERED: Potassium Chloride 20 MEQ TAB PO PRN (12:01)
[2017-09-28] MEDS ORDERED: CCU ELECTROLYTE REPLACEMENT PROTOCOL FS PRN (12:01)
[2017-09-28] MEDS ORDERED: Vancomycin HCl 750 MG in Sodium Chloride 0.9% 250 ML 250 ML IVPB SCH (14:00)
[2017-09-28 15:07] VITALS: BMI 17.7
[2017-09-28] MEDS: metroNIDAZOLE 500 MG in Premix Bag 1 BAG IVPB SCH ×2 (15:15→22:17)
--- NOTE | 2017-09-28 20:03 | PRG ---
DATE OF SERVICE: 09/28/2017 SUBJECTIVE: Bolivar Wilson's events have been reviewed. Apparently, she was moved to the ICU, placed on noninvasive ventilation. The family does not want her to be resuscitated or intubated. She does not want these either. She tells me that she is very tired. She continues to lose weight. She is extremely cachectic appearance. OBJECTIVES: VITAL SIGNS: Heart rate in the 80s, respiratory rate 20s, oximetry is 97, blood pressure 125/66. GREGORIO NGS: Remarkable for coarse equal breath sounds. She has a slightly prolonged expiratory phase. HEART: Regular rhythm. ABDOMEN: Soft. LABORATORY DATA: White count 19.9, hemoglobin 12.1, platelets 193. Sodium 124, potassium 3.9, chlor rodrigo 77, bicarbonate is greater than 37, BUN is 20, creatinine is 0.84. IMPRESSION: 1. Advanced nonsmall cell lung cancer. 2. Status post EGD with esophageal dilation on 09/27/2017. 3. Severe underlying obstructive lung disease. 4. Lung mass in the left lung and it has never been biopsied, this is most likely malignant. 5. ?coexistent pneumonia. 6. Acute on chronic respiratory failure, she appears extremely fatigued. I doubt she will survive t his admission. I met with the family and answered all their questions. Critical care time was 30 minutes.
[2017-09-28] MEDS ORDERED: Pantoprazole 40 MG VIAL IVP SCH (21:00)
[2017-09-29 04:44] LABS: ALT (SGPT) 10 U/L (8-55); AST (SGOT) 18 U/L (5-34); Albumin 2.3 g/dL (3.4-4.8); Alkaline Phosphatase 54 U/L (40-150); Anion Gap 23 mmol/L (10-20); BUN (Urea Nitrogen) 29 mg/dL (9.8-20.1); Bilirubin, Total 1.6 mg/dL (0.2-1.2); Calc. Creatinine Clearance 36 mL/min (70-130); Calcium 8.7 mg/dL (7.8-10.44); Carbon Dioxide 25 mmol/L (23-31); Chloride 84 mmol/L (98-107); Estimated GFR-MDRD 56; Globulin 2.6 g/dL (2.4-3.5); Glucose 58 mg/dL (80-115); Magnesium 2.2 mg/dL (1.6-2.6); Phosphorus 5.9 mg/dL (2.3-4.7); Potassium 4.5 mmol/L (3.5-5.1); Protein, Total 4.9 g/dL (6.0-8.3); Sodium 127 mmol/L (136-145)
[2017-09-29] MEDS ORDERED: Dextrose 50% Abboject 50 ML SYRINGE SLOW IVP PRN (04:55)
[2017-09-29] MEDS ORDERED: Dextrose 5% in Water 1,000 ML IV PRN (04:55)
[2017-09-29 05:45] LABS: Band 17 % (5-11); Eosinophils 2 % (0-10); Hemoglobin 11.7 g/dL (12.0-16.0); Lymphocytes 7 % (21-51); MDiff Complete? YES; Mean Corpuscular HGB CONC 30.7 g/dL (32.0-36.0); Mean Corpuscular Hemoglobin 29.1 pg (27.0-31.0); Mean Corpuscular Volume 94.7 fl (81.0-99.0); Mean Platelet Volume 8.6 fL (7.4-10.4); Metamyelocyte 2 % (0-0); Monocytes 4 % (0-10); Neutrophil 67 % (42-75); PLT Morphology Comment Appears Adequate; Platelet Count 184 thou/uL (130-400); RBC Distribution Width 14.1 % (11.5-14.5); RBC Morphology Normal; Reactive Lymphocytes 1 % (0-10); Red Blood Cell (RBC) Count 4.01 mill/uL (4.20-5.40); White Blood Cell (WBC) Count 16.4 thou/uL (4.8-10.8)
--- NOTE | 2017-09-29 06:05 | PDOC.FM ---
- Subjective Subjective: Ms. Wilson is in no pain or discomfort this morning. She denies being hungry. She and daughters continue to opt for more palliative measures and we discussed spacing out/discontinuing blood draws. - Objective MAR Reviewed: Yes Vital Signs & Weight: Vital Signs (12 hours) Temp Pulse Resp Pulse Ox 09/29/17 04:00 93.8 F L 09/29/17 03:04 80 20 81 L 09/29/17 02:00 95.4 F L 09/29/17 00:15 78 L 09/29/17 00:00 95.7 F L 09/28/17 22:00 95.5 F L 09/28/17 21:33 90 23 H 09/28/17 20:00 97.7 F 87 22 H 95 09/28/17 18:44 87 22 H 97 09/28/17 18:42 87 22 H 97 09/28/17 18:41 87 24 H 100 Weight Admit Weight 45 kg Weight 46.9 kg Most Recent Monitor Data Heart Rate from ECG 65 NIBP 74/41 NIBP BP-Mean 47 Respiration from ECG 17 SpO2 84 I&O: 09/27/17 09/28/17 09/29/17 06:59 06:59 06:59 Intake Total 1430 1330 Output Total 1100 225 122 Balance 330 1105 -122 Result Diagrams: 09/29/17 04:12 09/29/17 04:12 <Inez Mcgrath E - Last Filed: 09/29/17 12:11> - Objective Vital Signs & Weight: Vital Signs (12 hours) Temp Pulse Resp Pulse Ox 09/29/17 09:48 81 20 93 L 09/29/17 08:00 95.2 F L 81 20 93 L 09/29/17 06:31 71 24 H 91 L 09/29/17 06:29 72 18 91 L 09/29/17 04:00 93.8 F L 09/29/17 03:04 80 20 81 L 09/29/17 02:00 95.4 F L Weight Admit Weight 45 kg Weight 46.9 kg Most Recent Monitor Data Heart Rate from ECG 88 NIBP 70/48 NIBP BP-Mean 62 Respiration from ECG 23 SpO2 83 I&O: 09/28/17 09/29/17 09/30/17 06:59 06:59 06:59 Intake Total 1330 1005 Output Total 225 122 20 Balance 1105 883 -20 Result Diagrams: 09/29/17 04:12 09/29/17 04:12 <Vasyl Meek - Last Filed: 09/29/17 13:25> Phys Exam - Physical Examination appears weak BiPAP in place, muddy sclera Neck: supple rhonchi bilaterally, expiratory wheezing Cardiovascular: RRR, no significant murmur Gastrointestinal: soft, non-tender, no distention, positive bowel sounds Musculoskeletal: no edema Neurological: non-focal, moves all 4 limbs Psychiatric: normal affect Deviation from normal: appropriately responding to questions <Inez Mcgrath - Last Filed: 09/29/17 12:11> Dx/Plan (1) Acute on chronic respiratory failure with hypoxia Code(s): J96.21 - ACUTE AND CHRONIC RESPIRATORY FAILURE WITH HYPOXIA Status: Acute (2) Dysphagia Code(s): R13.10 - DYSPHAGIA, UNSPECIFIED Status: Acute (3) HCAP (healthcare-associated pneumonia) Code(s): J18.9 - PNEUMONIA, UNSPECIFIED ORGANISM Status: Acute (4) COPD (chronic obstructive pulmonary disease) Status: Acute QualifierTitle: COPD type: COPD with acute exacerbation Qualified Code(s) : J44.1 - Chronic obstructive pulmonary disease with (acute) exacerbation (5) Adenocarcinoma of lung Code(s): C34.90 - MALIGNANT NEOPLASM OF UNSP PART OF UNSP BRONCHUS OR LUNG Status: Chronic (6) HLD (hyperlipidemia) Code(s): E78.5 - HYPERLIPIDEMIA, UNSPECIFIED Status: Chronic QualifierTitle: Hyperlipidemia type: unspecified Qualified Code(s): E78.5 - Hyperlipidemia, unspecified (7) HTN (hypertension) Code(s): I10 - ESSENTIAL (PRIMARY) HYPERTENSION Status: Chronic QualifierTitle: Hypertension type: essential hypertension Qualified Code( s): I10 - Essential (primary) hypertension (8) Hyponatremia Code(s): E87.1 - HYPO-OSMOLALITY AND HYPONATREMIA Status: Chronic (9) Peripheral vascular disease Code(s): I73.9 - PERIPHERAL VASCULAR DISEASE, UNSPECIFIED Status: Chronic (10) Tobacco abuse Code(s): Z72.0 - TOBACCO USE Status: Chronic (11) Duodenal ulcer Status: Acute - Plan Plan: 1. Acute on chronic respiratory failure with hypoxia - Appreciate Dr. Hebert's assistance - Continue to monitor closely this morning - On Levaquin, Flagyl, Vanc, will adjust dosing renally per pharmacy - Steriod mgmt per Dr. Hebert - Prognosis poor. Discussed with patient and family all day yesterday as patient had decision making capacity and family and patient desire DNR status. Will discuss ongoing palliative measures as indicated 2. HCAP - Coverage as above - WBC downtrending, will space out blood draws 3. Non-small cell lung carcinoma - Recently diagnosed on last hospitalization - Has appointment with onc outpatient, notified Dr. Cunha this morning - Appreciate Dr. Hebert's assistance - Prognosis poor, discussed with patient and her daughters and she still desires to be DNR - Appreciate palliative team assistance with ongoing discussions/preparations 4. Dysphagia - Upper endoscopy performed - Duodenal ulcer noted and empiric dilation performed - Continue protonix 5. COPD - Continue scheduled duonebs and steroids - Goal O2 88-92% 6. Duodenal ulcer - Appreciate Dr. Ramos's assistance 7. 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 HLD 9. PVD 10. HTN - Low this morning, holding home meds 10. Tobacco abuse PPX: Lovenox and protonix Dispo: Will hold non-critical medications as patient not tolerating PO on BiPAP at this time and is not hungry. Continue symptomatic medications. Discussed current situation with patient and daughters again this morning and she does not desire more invasive intervention. Appreciate palliative team, Dr. Hebert and Dr. Cunha's assistance with long-term prognosis determination and likely full transition to comfort care. <Inez Mcgrath - Last Filed: 09/29/17 12:11> Attending Addendum - Attending Addendum I personally evaluated the patient and discussed the management with Dr. Mcgrath. I agree with and repeated the History, Examination, Assessment and Plan documented above with any addition or exceptions noted below. Worse today. Now hypoxic despite 100% FiO2, BP 70/40 on noninvasive. Agree with exam. Palliative saw yesterday and will come by again today, is appears we will be moving to a comfort care scenario in the future. See event note. <Vasyl Meek - Last Filed: 09/29/17 13:25>
[2017-09-29] MEDS: metroNIDAZOLE 500 MG in Premix Bag 1 BAG IVPB SCH ×2 (06:13→13:19)
[2017-09-29] MEDS: Mometasone/Formoterol 120 PUFF INHALER INH SCH (06:33)
[2017-09-29] MEDS ORDERED: VANCOMYCIN IVPB PRN (08:26)
[2017-09-29] MEDS ORDERED: Pantoprazole 40 MG VIAL IVP SCH (09:00)
[2017-09-29] MEDS ORDERED: Dextrose 5 % And 0.9 % NaCl 1,000 ML IV SCH (09:15)
[2017-09-29] MEDS: predniSONE 20 MG TAB PO SCH (09:52)
[2017-09-29] MEDS: Aspirin 81 mg Enteric Coated Tablet PO SCH (09:52)
[2017-09-29] MEDS: Enoxaparin Sodium 30 MG/0.3 ML SYRINGE SC SCH (10:03)
[2017-09-29] MEDS: Furosemide 40 MG/4 ML VIAL SLOW IVP SCH (10:04)
[2017-09-29] MEDS: Sodium Chloride 0.9% 1,000 ML IV SCH (11:44)
--- NOTE | 2017-09-29 12:18 | PDOC.EVN ---
Event Note - Event Note Event Note: S: Ms. Wilson is feeling like she is having trouble getting enough air. She denies pain otherwise. She states "I'm not getting any better" and does not want further escalation of care. At this time, she does want to continue fluids and antibiotics but also would like something for air hunger and discomfort. O: BP 70/48, SpO2 82% on BiPAP 13/7 @ 100%, P 81, R 18 Gen: appears uncomfortable and short of breath HEENT: dry mucus membranes, BiPAP in place CV: RRR RESP: Rhonchi BL Abd: soft, nontender, nondistended Ext: no edema A/P: Discussed current situation with patient as well as 2 daughters and son in the room and all are in agreement to add medication (morphine) for comfort but to currently continue antibiotics and fluids. She continues to not want intubation or other escalation of care/resuscitation. She would like BiPAP to stay on at this time as it is giving her symptomatic relief. Appreciate palliative care and Dr. Hebert's assistance with ongoing conversations and likely transition to comfort care measures/inpatient hospice. <Inez Mcgrath - Last Filed: 09/29/17 12:12> Attending Addendum - Attending Addendum I was present for the above family meeting. No escalation. No interested in CVC, pressors, intubation. Would like to continue current management. We discussed morphine in detail and the room voices understanding of the risks, benefits, and alternative options. <Vasyl Meek - Last Filed: 09/29/17 13:23>
[2017-09-29] MEDS ORDERED: Lorazepam 2 MG/ML VIAL SLOW IVP PRN (13:12)
[2017-09-29 13:56] VITALS: TEMP 95.6
[2017-09-29] MEDS ORDERED: Vancomycin HCl 500 MG in Sodium Chloride 0.9% 100 ML IVPB SCH (14:00)
[2017-09-29] MEDS ORDERED: Sodium Chloride 0.9% 500 ML IV SCH (14:45)
--- NOTE | 2017-09-29 19:11 | PRG ---
DATE OF SERVICE: 09/29/2017 SUBJECTIVE: Steve remains on BiPAP. Her oxygen requirements are high. Blood pressure has been runn ing low today in the 60s and 50s this evening. She survives inpatient hospice, is being considered Oncology starting consultation, may have no thera peutic options. Her lab work remains essentially stable. This is just a comfort care situation at t his point.
--- NOTE | 2017-09-30 07:03 | DS-2 ---
DATE OF ADMISSION: 09/24/2017 DATE OF : 09/29/2017 TIME OF : 1548 hours. ATTENDING: Vasyl Meek MD RESIDENT: Inez Mcgrath MD CAUSE OF : 1. Acute exacerbation of chronic obstructive pulmonary disease. 2. Advanced non-small cell lung cancer. 3. Healthcare-associated pneumonia. SECONDARY DIAGNOSES: 1. Acute on chronic respiratory failure. 2. Duodenal ulcer. 3. Hyperlipidemia. 4. Hypertension. 5. Hyponatremia. 6. Peripheral vascular disease. 7. Tobacco abuse. HOSPITAL COURSE: Ms. Wilson presented on 09/24/2017 with chief complaint of shortness of breath and cough. She had a known diagnosis of lung cancer that was determined on her most recent hospitalization who presented for acutely worsening shortness of breath. She was closely monitored on Oncology initially , however, began to have progressive hypoxia and tachypnea and was transferred to PACU early on the morning of 09/28/2017 for BiPAP and closer monitoring. Throughout the day, numerous conversations were held with the family and patient to discuss goals of care and it was decided that the patient's wishes were to not have more invasive interventions. At that time, she desired to remain on BiPAP and to continue antibiotics. Throughout the evening, she continued to have progressively worsening hypotension as well as decreased oxygen saturations. The morning of 09/29/2017, patient was still alert and oriented and able to answer questions appropriately. Conversations were had with primary team, pulmonary/critical care and oncology. She again stated that she did not wish to have further invasive interventions and desired availability of morphine to aid with air hunger. She was on 100% oxygen with BiPAP and continued to desaturate. At approximately 1542 hours, the patient was noted to be becoming progressively bradycardiac with decreased respiratory rate. The residents were paged to the bedside at 1546 hours and was pronounced at 1548 hours. Family was at bedside. All questions have been addressed at this time. We remain available for any additional support we can provide. MTDNoel
--- NOTE | 2017-10-24 17:42 | EKG ---
Test Reason : SOB Blood Pressure : / mmHG Vent. Rate : 066 BPM Atrial Rate : 066 BPM P-R Int : 142 ms QRS Dur : 094 ms QT Int : 418 ms P-R-T Axes : 076 096 061 degrees QTc Int : 438 ms Sinus rhythm with Premature atrial complexes Rightward axis Abnormal ECG Confirmed by DELMER MOTA, SUGEY ([id number]), online content editor TIM REYES ([id number]) on 10/24/2017 5:42:29 PM Referred By: Confirmed By:SUGEY DOWELL MD
== END 2017-09-29 15:48 | disposition expired | DRG 193 ==
LOC: ERS 07:07 → ONC 10:22 → CCU 09-28 05:37
PROVIDERS: ADMIT Family Medicine; ATTEND Family Medicine
PROC: 0DB98ZX Excision of Duodenum, Via Natural or Artificial Opening Endoscopic, Diagnostic (ICD-10-PCS; principal; 2017-09-27)
PROC: 0D758ZZ Dilation of Esophagus, Via Natural or Artificial Opening Endoscopic (ICD-10-PCS; 2017-09-27)
PROC: 5A09457 Assistance with Respiratory Ventilation, 24-96 Consecutive Hours, Continuous Positive Airway Pressure (ICD-10-PCS; 2017-09-27)
DX: J18.9 Pneumonia, unspecified organism (principal); J96.21 Acute and chronic respiratory failure with hypoxia; I50.33 Acute on chronic diastolic (congestive) heart failure; I95.9 Hypotension, unspecified; R64 Cachexia; E22.2 Syndrome of inappropriate secretion of antidiuretic hormone; E87.8 Other disorders of electrolyte and fluid balance, not elsewhere classified; J44.1 Chronic obstructive pulmonary disease with (acute) exacerbation; K26.9 Duodenal ulcer, unspecified as acute or chronic, without hemorrhage or perforation; C34.90 Malignant neoplasm of unspecified part of unspecified bronchus or lung; Z68.1 Body mass index [BMI] 19.9 or less, adult; I11.0 Hypertensive heart disease with heart failure; Z51.5 Encounter for palliative care; J42 Unspecified chronic bronchitis; Z86.11 Personal history of tuberculosis; E78.5 Hyperlipidemia, unspecified; I73.9 Peripheral vascular disease, unspecified; E11.9 Type 2 diabetes mellitus without complications; Z88.0 Allergy status to penicillin; Z79.82 Long term (current) use of aspirin; F17.211 Nicotine dependence, cigarettes, in remission; K31.7 Polyp of stomach and duodenum; Z66 Do not resuscitate; Y95 Nosocomial condition; R00.1 Bradycardia, unspecified; Z95.5 Presence of coronary angioplasty implant and graft; R13.12 Dysphagia, oropharyngeal phase; F41.9 Anxiety disorder, unspecified
CPT/HCPCS: 36415; 36416; 71045; 71275; 80048; 80053; 80202; 82805; 83735; 83880; 83935; 84100; 84300; 85025; 87040; 87389; 88305; 93005; 94640; 94660; 94760; 96365; 96368; A4216; C9113; G8978-GP-CM; G8979-GP-CJ; G8987-GO-CI; G8988-GO-CI; G8989-GO-CI; J0692; J1650; J1940; J1956; J2001; J2270; J2704; J2930; J3370; J3475; J7050; J7506; J7620